=== PATIENT | female | born 1985 | race Caucasian/White ===

== ENCOUNTER → 2018-05-31 11:09 | Outpatient (CLI) | payer BC, OTHER, SELFPAY ==
--- NOTE | 2018-05-31 11:47 | US_ITS ---
US abdomen limited History:Right lower quadrant pain and tenderness Ordering Physician:Meagan Cruz MD Patient Age: 32 years Comparison:None Findings: Images are obtained of the right lower quadrant and demonstrates a moderate amount of artifact from gas within the overlying bowel. No free fluid apparent. No cyst or masses evident. The appendix was not demonstrated. IMPRESSION: The appendix was not demonstrated. Further evaluation may be obtained with CT with IV and oral contrast of clinically warranted. No obvious fluid collections or other significant anomalies evident
== END ==
PROVIDERS: PCP Family Medicine; Visit Provider Emergency Medicine
DX: R10.31 Right lower quadrant pain (principal)
CPT/HCPCS: 76705

== ENCOUNTER → 2019-05-05 14:59 | Outpatient (CLI) | payer BC, SELFPAY ==
[2019-05-05 15:26] LABS: Basophils % 0.4 % (0.1-2.0); Eosinophils # 0.1 K/mm3 (0.0-0.4); Eosinophils % 1.3 % (0.1-12.0); Hematocrit 43.5 % (37.0-47.0); Hemoglobin 14.8 g/dL (12.2-16.2); Lymphocytes # 2.6 K/mm3 (0.7-4.5); Lymphocytes % 27.5 % (10-50); Mean Corpuscular HGB Conc 34.1 g/dL (31.8-35.4); Mean Corpuscular Hemoglobin 30.7 pg (27.0-31.2); Mean Corpuscular Volume 89.9 fl (81-99); Mean Platelet Volume 7.7 fl (7.4-10.4); Monocytes # 0.2 K/mm3 (0.1-1.0); Monocytes % 2.5 % (1.7-9.3); Neutrophils # 6.6 K/mm3 (1.8-7.8); Neutrophils % 68.3 % (37.0-80.0); Platelet Count 263 K/mm3 (142-424); Red Blood Count 4.84 M/mm3 (4.20-5.40); Red Cell Distribution Width 12.7 % (11.5-17.5); White Blood Count 9.6 K/mm3 (4.8-10.8)
[2019-05-05 16:43] LABS: Alanine Aminotransferase 13 U/L (12-78); Albumin Level 4.3 gm/dL (3.4-5.0); Albumin/Globulin Ratio 1.3 (1.1-1.8); Alkaline Phosphatase 81 U/L (46-116); Anion Gap 18.1 mEq/L (5-15); Aspartate Amino Transferase 9 U/L (15-37); Bilirubin,Total 0.3 mg/dL (0.2-1.0); Blood Urea Nitrogen 10 mg/dL (7-18); Calcium 9.5 mg/dL (8.5-10.1); Carbon Dioxide 26 mmol/L (21.0-32.0); Chloride 104 mmol/L (98-107); Creatinine,Serum 0.77 mg/dL (0.55-1.02); Estimated Glomerular Filt Rate 86 ml/min (>60); GFR (African American) 104 ML/MIN (>60); Globulin 3.2 gm/dl (1.3-3.2); Glucose 87 mg/dL (74-106); Potassium 4.1 mmoL/L (3.5-5.1); Sodium 144 mmol/L (136-145); T4 (Thyroxine) 10.4 ug/dl (4.7-13.3); Thyroid Stimulating Hormone 0.43 uIU/ml (0.358-3.740); Total Protein,Serum 7.5 gm/dL (6.4-8.2)
[2019-05-07 06:59] LABS: Iron 98 ug/dL (27-159); UIBC 212 ug/dL (131-425)
[2019-05-07 10:59] LABS: Iron Saturation 32 % (15-55); Vitamin B12 1141 pg/mL (232-1245)
[2019-05-08 02:39] LABS: Folate, RBC 671 ng/mL (>498)
[2019-05-08 11:24] LABS: Vitamin D 25 Hydroxy 21.5 ng/mL (30.0-100.0)
[2019-05-08 12:29] LABS: Anti-Centromere B Antibodies <0.2 AI (0.0-0.9); Anti-Jo-1 <0.2 AI (0.0-0.9); Anti-Smith Antibody <0.2 AI (0.0-0.9); Antichromatin Antibodies <0.2 AI (0.0-0.9); Antiscleroderma-70 Antibodies <0.2 AI (0.0-0.9); RA Latex Turbid. <10.0 IU/mL (0.0-13.9); RNP Antibodies <0.2 AI (0.0-0.9); Sjogren's Anti-SS-A 0.2 AI (0.0-0.9); Sjogren's Anti-SS-B <0.2 AI (0.0-0.9)
[2019-05-09 16:43] LABS: Anti-DNA (DS) Ab Qn <1 IU/mL (0-9)
[2019-05-18 05:18] LABS: APTT 30.8 sec (.); Anti-Cardiolipin Antibody IgG <10 GPL (.); Anti-Cardiolipin Antibody IgM 11 MPL (.); Beta-2 Glycoprotein I Ab, IgA <10 SAU (.); Beta-2 Glycoprotein I Ab, IgG <10 SGU (.); Beta-2 Glycoprotein I Ab, IgM <10 SMU (.); Hexagonal Phase Phospholipid 0 sec (.); INR 1.2 ratio (.); Prothrombin Time 12.8 sec (.)
== END ==
PROVIDERS: Visit Provider Nurse Practitioner Family
DX: R27.9 Unspecified lack of coordination (principal); R53.83 Other fatigue; R53.1 Weakness; E55.9 Vitamin D deficiency, unspecified
CPT/HCPCS: 36415; 80053; 82607; 82652; 82747; 83540; 83550; 84436; 84443; 85014; 85025; 85597; 85598; 85610; 85613; 85670; 85730; 86146; 86147; 86225; 86235; 86431

== ENCOUNTER → 2019-05-30 12:48 | Outpatient (CLI) | payer BC, SELFPAY ==
--- NOTE | 2019-05-30 12:58 | MR_ITS ---
PROCEDURE: MR HEAD/BRAIN WO CON CLINICAL INDICATION: weakness Forgetfulness, altered mental status, constant headaches, weakness, stumbling, recent diagnosis of lupus COMPARISON: No exams were available for comparison TECHNIQUE: Routine multiplanar multi echo sequences are performed without gadolinium enhancement. FINDINGS: No midline shift, mass effect, intracranial hemorrhage, or hydrocephalus. No evidence of acute infarction The cerebellopontine angles, cerebellum, and brainstem are unremarkable. There is normal meredith-white matter differentiation with no abnormal white matter signal intensity evident. The pituitary, optic chiasm, corpus callosum, and craniocervical junction have an unremarkable appearance. There is mucosal thickening with mixed gas and fluid density in the sphenoid sinus as well as mucosal thickening the ethmoid sinuses and bilateral maxillary sinus with air-fluid level on the right. IMPRESSION: 1. No acute intracranial findings. 2. Sinusitis Dictated by: Joaquin Gomez MD 05/31/2019 12:05 Electronically signed by Joaquin Gomez MD in [place] 05/31/2019 12:05
== END ==
PROVIDERS: PCP Emergency Medicine; Visit Provider Nurse Practitioner Family
DX: R41.3 Other amnesia (principal); R41.840 Attention and concentration deficit; R53.83 Other fatigue
CPT/HCPCS: 70551

== ENCOUNTER → 2019-07-17 09:32 | Outpatient (CLI) | payer BC, SELFPAY ==
[2019-07-17 10:28] LABS: Basophils # 0.1 K/mm3 (0-0.2); Basophils % 0.7 % (0.1-2.0); Eosinophils # 0.2 K/mm3 (0.0-0.4); Eosinophils % 2.3 % (0.1-12.0); Hematocrit 45.9 % (37.0-47.0); Hemoglobin 15.1 g/dL (12.2-16.2); Lymphocytes # 2.3 K/mm3 (0.7-4.5); Lymphocytes % 29.6 % (10-50); Mean Corpuscular Hemoglobin 29.6 pg (27.0-31.2); Mean Corpuscular Volume 89.7 fl (81-99); Mean Platelet Volume 8.1 fl (7.4-10.4); Monocytes # 0.3 K/mm3 (0.1-1.0); Neutrophils % 63.3 % (37.0-80.0); Platelet Count 228 K/mm3 (142-424); Red Blood Count 5.11 M/mm3 (4.20-5.40); Red Cell Distribution Width 12.4 % (11.5-17.5); White Blood Count 7.9 K/mm3 (4.8-10.8)
[2019-07-17 10:54] LABS: Chloride 105 mmol/L (98-107); Sodium 141 mmol/L (136-145)
[2019-07-17 10:55] LABS: Potassium 3.9 mmoL/L (3.5-5.1)
[2019-07-17 10:57] LABS: Alanine Aminotransferase 12 U/L (12-78); Albumin Level 4.7 g/dl (3.5-5.0); Albumin/Globulin Ratio 1.7 (1.1-1.8); Alkaline Phosphatase 63 U/L (38-126); Anion Gap 13.9 mEq/L (5-15); Aspartate Amino Transferase 22 U/L (14-36); Bilirubin,Total 0.5 mg/dl (0.2-1.3); Blood Urea Nitrogen 5 mg/dl (7-17); Calcium 9.8 mg/dl (8.4-10.2); Carbon Dioxide 26 mmol/L (22.0-30.0); Estimated Glomerular Filt Rate 96 ml/min (>60); GFR (African American) 117 ML/MIN (>60); Globulin 2.7 g/dL (1.3-3.2); Glucose 82 mg/dl (74-100); Total Protein,Serum 7.4 g/dl (6.3-8.2)
[2019-07-17 11:05] LABS: HCG Qualitative, Serum Negative (Negative)
== END ==
PROVIDERS: Visit Provider Obstetrics & Gynecology
DX: Z01.818 Encounter for other preprocedural examination (principal); N93.8 Other specified abnormal uterine and vaginal bleeding; Z98.891 History of uterine scar from previous surgery
CPT/HCPCS: 36415; 80053; 84703; 85025

== ENCOUNTER 2019-07-19 07:38 | Inpatient (IN) ==
--- NOTE | 2019-07-19 08:59 | Progress Note ---
[facility] Anesthesia Checklist - Patient Identification Patient Identification: Arm Band, Verbal (Name & ) - Structural Data Admitted From: Home Planned Operative Procedure/s: PRATIBHA, possible BSO Consent for Planned Operative Procedure(s) Verified: Yes Verified Documents: Surgical Consent, History and Physical - NPO Status Verified Time NPO: 21:30 - Chart Verification Results Verified: CBC, BMP, HCG - Additional verifications Patient : No Anesthesia Reactions: No Hx Blood Transfusions: Yes Blood Transfusion Reaction: No - Airway Assessment C-Spine Mobility Assessed: Yes TMJ Mobility Assessed: Yes Dentition: Good Dentition - Neurological Assessment Level of Consciousness: Awake, Alert, Appropriate, Follows Commands Hx Seizures: No Numbness or tingling in extremities: No - Anesthesia Plan Anesthesia Risk discussed: Yes Anesthesia Plan: Verified ASA Class: II Anesthesia Type: General [facility] History I have reviewed the patient's past medical history: Yes Medical History: Reports:: Cancer (skin ca), Migraine Denies:: Diabetes Mellitus Type 1, Diabetes Mellitus Type 2, Internal Pacemaker, MRSA, Seizures *Have you ever received a pneumonia vaccine?: No *Have you received a flu vaccine this season?: No Other Medical History: Reports: Other. Denies: Blood Transfusion Reaction Comment:: Lupus Anesthesia experience/problems:: no prior complications Laterality Cases: Bilateral: Myringotomy (Ear Tubes) Other Surgeries: Yes: Colonoscopy, , Skin Cancer Excision, Tubal Ligation. No: Pacemaker Amputation: No Fractures: No - *Social History Educational Level: Attended College Smoking Status: Current every day smoker # Packs/Day (cigarettes): 1 #Yrs smoked (if former smoker): 18 Alcohol Intake: never Alcohol Intake Frequency:: holidays/special occasions only Substance Use Type: denies use *Occupational Status:: employed Housing: house Household Members: spouse, family *Travel in the last 8 weeks: None Family Hx:: Unable to obtain
--- NOTE | 2019-07-19 12:33 | Progress Note ---
[facility] Anesthesia Record Part I Intake, IV Amount: 2,300 Estimated blood loss (mL): 700 Urine output (mL): 200 Blood Pressure: 145/82 SaO2: 95 Pulse Rate: 105 Respiratory Rate: 16 Temperature: 98.1 F Patient is:: Drowsy, Stable Stable to PACU at:: 12:25
--- NOTE | 2019-07-19 12:51 | Operative Note ---
Date of procedure: 07/19/19 Pre-op Diagnosis:: 1. Severe dysmenorrhea 2. DUB 3. History of C Section 4. Tobacco abuse Post-op Diagnosis:: 1. Severe dysmenorrhea 2. DUB 3. History of C Section 4. Tobacco abuse 5. Severe pelvic adhesions Procedure performed:: Total abdominal hysterectomy, extensive lysis of adhesions Surgeon:: Fatou Cross MD Chief Cook(s):: Alise Braun FURNACE RELINER:: Jhony Márquez Anesthesia: GETA Estimated blood loss (mL): 700 Operative findings:: Normal uterus and bilateral ovaries. Extensive pelvic adhesions with bladder adhesions extending up the anterior uterus to the level of the round ligaments. Operative note:: The patient was taken to the operating room and general anesthesia was administered without difficulty. She was prepped and draped in the supine position. A Pfannenstiel skin incision was made approximately 2 cm above the pubic symphysis with a scalpel and carried down to the underlying layer of fascia. The fascia was incised in the midline and extended laterally sharply. The rectus muscles were sharply dissected off the fascia and in the midline. The peritoneum was turned and sharply, with good visualization of the underlying structures. The peritoneal incision was extended bluntly. A survey of the patient's pelvis and abdomen revealed a moderate amount of pelvic adhesions, with the vesicouterine peritoneum extending up the anterior uterus to the level of the round ligatments. The ovaries and fallopian tubes both elaine eared normal. At this time, the patient was placed in Trendelenburg and a [place] retractor was placed in the abdomen; the bowel was packed with moist laparotomy sponges. A double tooth tenaculum was placed on the uterine fundus above the level of the bladder adhesions and the uterus was elevated out of the pelvis. No fibroids or other visible uterine lesions were noted. The round ligaments were identified and transected and suture-ligated. A small defect was made in the anterior leaf of the broad ligament inferior to the round ligaments so that the bladder could be dissected off of the anterior uterus. This lysis of adhesions took approximately 20 minutes but was successfully completed without apparent bladder injury. Once the bladder was sufficiently dissected off the uterine fundus, it was dissected medially on both sides and the bladder flap was created digitally. The posterior leaf of the broad ligament was dissected until the ureters were able to be identified on either side and noted to be free of the forthcoming adnexal pedicles. Infundibulopelvic ligaments were doubly clamped transected and suture ligated on either side, with excellent hemostasis noted. The uterine arteries were skeletonized on either side, and were clamped, transected and suture ligated with excellent hemostasis. The bladder flap was further bluntly dissected off the lower uterine segment with excellent hemostasis and without injury to the bladder. The cardinal and uterosacral ligaments were clamped transected and suture ligated on both sides until the vaginal mucosa was entered. The vaginal incision was extended circumferentially with the Jorganson scissors; the uterus and cervix were removed abdominally and sent for pathology, along with the fallopian tubes. The vaginal cuff angles were closed 0 Vicryl [id number] sutures and were transfixed to the ipsilateral cardinal and uterosacral ligaments. The remainder of the vaginal cuff was closed with 0 Vicryl interrupted sutures. The pelvis was copiously irrigated with a solution of sterile water. The cuff was hemostatic. All pedicles were reexamined and remained hemostatic. All instruments were removed from the patient's abdomen. The peritoneum was closed with 2-0 Vicryl in a running fashion. The fascia was closed with #1 Vicryl in a running fashion. The skin was closed with christopher. The patient tolerated the procedure well; sponge/lap/needle and instrument counts were correct 2. She was taken to the recovery room awake in stable condition. Estimated blood loss: 700 cc. Condition: stable Disposition: PACU Specimens:: uterus and cervix Complications:: none
--- NOTE | 2019-07-19 14:09 | Pharmacy Consult Notes ---
[facility] Pharmacy VTE Monitoring - Patient Demographics Admission date: 07/19/19 Report Date: 07/19/19 Time: 14:09 Allergies/Adverse Reactions: Patient Allergies No Known Drug Allergies Allergy (Unknown, Verified 07/18/19 15:51) Height: 1.68 m Weight: 58.967 kg Patient Problems: Current Active Problems Tobacco abuse (Acute) Pelvic adhesions (Acute) History of section (Acute) Severe dysmenorrhea (Acute) DUB (dysfunctional uterine bleeding) (Acute) - VTE Risk Clinical Trial Participant: No - Prophylaxis VTE Prophylaxis Ordered?: Yes Types of VTE Prophylaxis: IPCS Knee High (POST OP) Location of Applied Device: Bilateral Lower Extremeties
--- NOTE | 2019-07-19 15:08 | Progress Note ---
[facility] Anesthesia Record Part II Discharge Time: 13:00 Destination: Obstetric Gynecology Dept PACU nurse assessment reviewed?: Yes Patient Condition:: Good Anesthesia Complications:: None Swallowing reflex intact?: Yes Cyanosis?: No Blood Pressure: 114/68 Pulse Rate: 95 Temperature: 97.9 F Mental Status: Alert & Oriented Pain level:: 6 Nausea and/or vomitting:: None Intake, IV Amount: 35
[2019-07-20 06:54] LABS: Hematocrit 32.5 % (37.0-47.0); Hemoglobin 10.3 g/dL (12.2-16.2)
[2019-07-20 07:01] LABS: Calcium 9.1 mg/dl (8.4-10.2)
--- NOTE | 2019-07-20 10:49 | Progress Note ---
Internal Medicine - PN: Subj *Date: 07/20/19 *Time: 10:45 Interval history: POD #1 CAROL MCKINNON Postop status uneventful during the day yesterday and overnight Early this am, after ambulating to void the patient noted that her abdominal dressing was saturated with sanginous drainage The bandage was changed by nursing staff, but has continued to ooze Hgb this am is 10.3, which is appropriate for intra-operative blood loss Tolerating po and voiding without difficulty; adequate urine output Pain control sufficient Exam Vital signs and Labs for Last 24 Hours: Temp Pulse Resp BP Pulse Ox 98.1 F 65 18 83/48 L 99 07/20/19 08:00 07/20/19 08:00 07/20/19 08:00 07/20/19 08:00 07/20/19 08:00 Laboratory Results - last 24 hr 07/19/19 09:40: Urine Color Yellow, Urine Appearance Clear, Urine pH 8.0, Ur Specific [place] 1.010, Urine Protein Negative, Urine Glucose (UA) Negative, Urine Ketones Negative, Urine Blood Trace-l, Urine Nitrate Negative, Urine Bilirubin Negative, Urine Urobilinogen 0.2, Ur Leukocyte Esterase Negative, Urine RBC 3-5, Urine WBC Occasional, Ur Squamous Epith Cells Occasional, Urine Bacteria None 07/20/19 06:25: Sodium 137, Potassium 4.0, Chloride 106, Carbon Dioxide 26, Anion Gap 9.0, BUN 4 L, Creatinine 0.60, Estimated Creat Clear 124, Estimated GFR 115, Est GFR ( Amer) 139, Glucose 139 H, Calcium 9.1 07/20/19 06:25: Hgb 10.3 L, Hct 32.5 L I & O for Last 24 hours: Intake & Output 07/17/19 07/18/19 07/19/19 07/20/19 11:59 11:59 11:59 11:59 Intake Total 2485 / 2485 Output Total 2275 / 2275 Balance 210 / 210 Weight 130 lb Narrative: CONSTITUTIONAL: no acute distress HEENT: mucous membranes moist PULMONARY: breathing unlabored without audible wheezes CV: no tachycardia or visible JVD; normal LE peripheral pulses ABD: soft, ND; appropriately tender but no rebound/guarding SKIN: incision well approximated with christopher. Sanginous oozing noted at one particular area between christopher [address] left lateral edge of incision Dressing changed and pressure dressing applied, with additional pressure from abdominal binder EXT: no edema LEs NEURO: alert/oriented, no altered mental status PSYCH: appropriate mood and demeanor without anxiety/depression Assessment and Plan (1) Severe dysmenorrhea Current visit: Yes Status: Acute Category: Medical Code(s): N94.6 - Dysmenorrhea, unspecified (2) DUB (dysfunctional uterine bleeding) Current visit: Yes Status: Acute Category: Medical Code(s): N93.8 - Other specified abnormal uterine and vaginal bleeding (3) Pelvic adhesions Current visit: Yes Status: Acute Category: Medical Code(s): N73.6 - Female pelvic peritoneal adhesions (postinfective) (4) S/P hysterectomy Current visit: Yes Status: Acute Category: Surgical Code(s): Z90.710 - Acquired absence of both cervix and uterus (5) Postoperative bleeding from incision Current visit: Yes Status: Acute Category: Medical - Assessment and plan all Dx Assessment and Plan for all problems:: Continue routine postop care Advance care as tolerated Plan to re-evaluate incisional bleeding couple hours after application of pressure dressing Repeat H/H If incisional bleeding persists, patient advised that may need to remove christopher for cauterization of bleeding
[2019-07-20 14:28] LABS: Hematocrit 29.6 % (37.0-47.0); Hemoglobin 9.6 g/dL (12.2-16.2)
[2019-07-21 07:12] LABS: Hematocrit 27.8 % (37.0-47.0)
[2019-07-21 07:19] LABS: Hemoglobin 8.8 g/dL (12.2-16.2)
--- NOTE | 2019-07-21 09:39 | Discharge Summary ---
General - General Admission date:: 07/19/19 Discharge date: 07/21/19 HPI HPI: 33 yo admitted for surgical management of severe dysmenorrhea and DUB with total abdominal hysterectomy Hospital Course Hospital Course: Postop day #1 the patient had superficial bleeding from the left lateral edge of abdominal incision This bleeding resolved with pressure dressing and no further bleeding was observed from the incision throughout POD #1, through the evening, or on POD #2 She is tolerating regular diet, ambulating and voiding without difficulty Hgb stable between POD #1 & POD #2 and she is asymptomatic with acute blood loss anemia She desires discharge home on POD #2 Objective Vital signs: Temp Pulse Resp BP Pulse Ox 98.1 F 70 18 82/44 L 96 07/21/19 04:00 07/21/19 04:00 07/21/19 04:00 07/21/19 04:00 07/21/19 04:00 Narrative: CONSTITUTIONAL: no acute distress HEENT: mucous membranes moist PULMONARY: breathing unlabored without audible wheezes CV: no tachycardia or visible JVD; normal LE peripheral pulses ABD: soft, ND; appropriately tender but no rebound/guarding SKIN: incision well approximated with christopher; no drainage, erythema or induration noted. Dressing dry. EXT: no edema LEs NEURO: alert/oriented, no altered mental status PSYCH: appropriate mood and demeanor without anxiety/depression Results Labs on day of discharge: Labs from last 24 hours 07/21/19 07/20/19 06:38 14:10 Hgb 8.8 L 9.6 L Hct 27.8 L 29.6 L DS: Diagnosis - Discharge Diagnosis (1) Severe dysmenorrhea Status: Acute (2) DUB (dysfunctional uterine bleeding) Status: Acute (3) Pelvic adhesions Status: Acute (4) S/P hysterectomy Status: Acute (5) Postoperative bleeding from incision Status: Acute (6) Acute blood loss anemia Status: Acute Discharge Plan - Patient Discharge Instructions ACTIVITY: Continue current activity DIET: regular diet - Follow up Plan Follow up with: Fatou Cross MD [Staff Physician] - (Wednesday07/24/19 9:15am) Disposition: Home, Self-Long-Term Medications: Home Medications Medication Instructions Recorded Confirmed Type No Known Home Medications 06/22/19 07/18/19 History Ketorolac Tromethamine [Toradol 10 mg PO Q6 PRN #30 tab 02/28/20 Rx 30mg/mL vial] Oxycodone HCl [OxyIR 5mg tablet] 5 - 10 mg PO Q4HP PRN #30 tab 07/21/19 Rx Prescriptions/Medication Reconciliation: New Ketorolac Tromethamine [Toradol 30mg/mL vial] 10 mg PO Q6 PRN #30 tab PRN Reason: Moderate Pain Acetaminophen [Acetaminophen 325mg tab] 650 mg PO Q4HP PRN tablet PRN Reason: Mild Pain Oxycodone HCl [OxyIR 5mg tablet] 5 - 10 mg PO Q4HP PRN #30 tab PRN Reason: Moderate To Severe Pain No Action No Known Home Medications - Problem Reconciliation Problems Reviewed?: Yes
== END 2019-07-21 11:30 | disposition home or self-care (01) | DRG 743 ==
LOC: OR 07:38 → OB 13:00
PROVIDERS: ADMIT Obstetrics & Gynecology; ATTEND Obstetrics & Gynecology
CPT/HCPCS: 36415; 80048; 81001; 85014; 85018; 96374; J2405; J2710

== ENCOUNTER 2019-11-22 14:36 | Emergency (ER) | payer BC, SELFPAY ==
[2019-11-22 15:30] VITALS: BP 106/79; PULSE 84; RESP 20; TEMP 36.8; O2SAT 100; BMI 19.5
--- NOTE | 2019-11-22 15:38 | HMH.EDUTC ---
[facility] [place] Clinical Impression: Sinusitis Qualifiers: Sinusitis location: unspecified location Chronicity: unspecified Qualified Code(s): J32.9 - Chronic sinusitis, unspecified Disposition: Home, Self-Care Condition on Discharge: Good Instructions: Sinusitis, Sinus Headache, DI for Sinusitis, DI for Flank Pain Additional Instructions: Take medication as prescribed *FOllow up with Family doctor if no improvement or any worsening of symptoms Straight to ER if any worsening of flank pain and immediately if any life threatening symptoms Make sure that you are drinking plenty of water Return if needed Follow up with Family doctor in the next 48-72 hours Prescriptions: Amoxicillin/Potassium Clav [Augmentin 875-125 Tablet] 1 tab PO Q12H 7 Days #14 tab Transmission Status: Received by [facility] #[id number] Referrals: Damien Dwyer APRN [Primary Care Provider] - As needed Time of Disposition: 15:57 Medical Decision Making - Sim Inquiry Pt receiving controlled substance: No Sim was queried for this patient: No Vital Signs: 11/22/19 15:30 11/22/19 16:13 Temperature 98.2 F 98.2 F Temperature Source Oral Pulse Rate 84 Pulse Rate [Right Brachial] 84 Respiratory Rate 20 20 Blood Pressure 106/79 L Blood Pressure [Right Arm] 106/79 L Blood Pressure Mean [Right Arm] 88 Blood Pressure Source [Right Arm] Automatic Cuff Blood Pressure Position [Right Arm] Sitting 02 Sat by Pulse Oximetry 100 Oxygen Delivery Method Room Air - Lab Data Lab results reviewed: Yes: I reviewed the patient's lab results. Lab Results 11/22/19 15:11: Urine Color Yellow, Urine Appearance Clear, Urine pH 6.0, Ur Specific [place] 1.010, Urine Protein Negative, Urine Glucose (UA) Negative, Urine Ketones Negative, Urine Blood 2+, Urine Nitrate Negative, Urine Bilirubin Negative, Urine Urobilinogen 0.2, Ur Leukocyte Esterase Negative Orders (Tests/Meds): ED MEDICATIONS Discontinued Medications Generic Name Dose Route Start Last Admin Trade Name Freq PRN Reason Stop Dose Admin Ketorolac Tromethamine 30 mg 11/22/19 15:48 11/22/19 16:01 Toradol 60mg/2ml Vial IM 11/22/19 15:49 30 mg ONCE ONE Administration Medical Decision Narrative: Discussed with patient that we could send her to the ED for further evaluation and CT if needed to rule out kidney stones and patient declined transfer State that she will take the medication and follow up with PCP if no improvement or any worsening of symptoms [facility] [place] - General Stated complaint: Possible UTI Time Seen by Provider: 11/22/19 15:38 Mode of Arrival: Ambulatory Source of Information: Patient Limitations: No Limitations Description of Symptoms (Recalled from Triage Doc. by RN): PATIENT C/O SINUS PRESSURE AND DRAINAGE AND LOWER BACK PAIN SINCE YESTERDAY HEENT Symptoms (Recalled from RN notes): Yes Resp Symptoms (Recalled from RN notes): No Skin Symptoms (Recalled from RN notes): No MS Symptoms (Recalled from RN notes): Yes Functional Status (Recalled from RN notes): WNL - History of Present Illness Provider Complaint: Patient states that she feels like she has a sinus infection State that she has been having sinus pain and pressure and pressure like feeing in her ears State that she has been working outside and started having some lower back pain last night like she has had before with UTI states feels like it did then Denies radiation of pain but states that pain is a constant achy like feeling - Related Data Home Medications Medication Instructions Recorded Confirmed Sertraline HCl [Zoloft] 50 mg PO DAILY 11/22/19 11/22/19 Previous Rx's Medication Instructions Recorded diazepam 10 mg tablet 10 mg PO QHS PRN #30 tab 10/19/19 Amoxicillin/Potassium Clav 1 tab PO Q12H 7 Days #14 tab 11/22/19 [Augmentin 875-125 Tablet] Allergies Allergy/AdvReac Type Severity Reaction Status Date / Time No Known Drug Allergies Allergy Unknown
[2019-11-22 15:54] LABS: Color,Urine Yellow (Yellow)
[2019-11-22 15:55] LABS: Apearance,Urine Clear (Clear); Bilirubin,Urine Negative (Negative); Blood, Urine 2+ (Negative); Glucose,Urine (UA) Negative (Negative); Ketones,Urine Negative (Negative); Protein,Urine Negative (Negative); UTC Leukocyte Esterase,Urine Negative (Negative); UTC Nitrate,Urine Negative (Negative); Urobilinogen,Urine 0.2 EU/dl (0.2)
[2019-11-22 16:13] VITALS: BP 106/79; PULSE 84; RESP 20; TEMP 36.8; O2SAT 100
== END 2019-11-22 16:17 | disposition home or self-care (01) ==
PROVIDERS: Emergency Provider Nurse Practitioner; PCP Nurse Practitioner Family
DX: J32.9 Chronic sinusitis, unspecified (principal); G43.709 Chronic migraine without aura, not intractable, without status migrainosus; Z90.79 Acquired absence of other genital organ(s); F17.210 Nicotine dependence, cigarettes, uncomplicated
CPT/HCPCS: 81003; 96372; 99201

== ENCOUNTER 2020-03-24 09:59 | Emergency (ER) | payer BC, SELFPAY ==
[2020-03-24 10:33] VITALS: BP 115/67; PULSE 116; RESP 20; TEMP 36.6; O2SAT 98; BMI 22.2
--- NOTE | 2020-03-24 11:03 | HMH.EDUTC ---
[facility] [place] Clinical Impression: Strep throat Disposition: Home, Self-Care Condition on Discharge: Good Instructions: Strep Throat, DI for Strep Throat Additional Instructions: *Monitor Temp, Over the counter Motrin or Tylenol as directed/as needed Tylenol every 4 hours and Motrin every 6 hours (as long as your family doctor has told you that you can take it) for fever or pain. and straight to ER if unable to lower temp less than 101.0 after medication given *Warm salt water gargles may help to soothe the throat *Throat Lozenges *Warm fluids like tea with honey may help to soothe the throat *Sleep elevated *Humidifier/Vaporizer *If you did not take Penicillin shot or was unable to, start taking antibiotic immediately and make sure that you take it for the FULL length of time although you should start to feel better in 24-48 hours *change toothbrush and toothpaste 24-48 hours after starting to take antibiotics so you do not reinfect yourself Monitor Temp. Tylenol and/or Ibuprofen as needed. ER if fever is no less than 101 despite alternating Tylenol and Ibuprofen * Encourage fluids, water, Gatorade, powerade, pedialyte if infant/toddler/or child *Cold fluids, popsicles and ice cream may feel good on his throat Follow up IMMEDIATELY for new or worsening symptoms or no Noticeable improvement over the next 48-72 hours. 911 for difficulty breathing or swallowing Prescriptions: Penicillin V Potassium 500 mg PO BID 10 Days #20 tab Transmission Status: Received by [facility] #[id number] Referrals: Damien Dwyer APRN [Primary Care Provider] - As needed Time of Disposition: 11:09 Medical Decision Making - Sim Inquiry Pt receiving controlled substance: No Sim was queried for this patient: No Vital Signs: 03/24/20 10:33 Temperature 97.8 F Temperature Source Oral Pulse Rate [Radial] 116 H Respiratory Rate 20 Blood Pressure [Right Arm] 115/67 Blood Pressure Mean [Right Arm] 83 Blood Pressure Source [Right Arm] Automatic Cuff Blood Pressure Position [Right Arm] Sitting 02 Sat by Pulse Oximetry 98 Oxygen Delivery Method Room Air - Lab Data Lab results reviewed: Yes: I reviewed the patient's lab results. Orders (Tests/Meds): ED MEDICATIONS Discontinued Medications Generic Name Dose Route Start Last Admin Trade Name Freq PRN Reason Stop Dose Admin Methylprednisolone Sodium Succinate 125 mg 03/24/20 11:03 03/24/20 11:16 Methylprednisolone Sod Succ 125mg Vial IM 03/24/20 11:04 125 mg ONCE ONE Administration [facility] [place] HPI - General Stated complaint: strepp throat Time Seen by Provider: 03/24/20 11:03 Mode of Arrival: Ambulatory Source of Information: Patient Limitations: No Limitations Description of Symptoms (Recalled from Triage Doc. by RN): sore throat x 2 days HEENT Symptoms (Recalled from RN notes): Yes Resp Symptoms (Recalled from RN notes): No Skin Symptoms (Recalled from RN notes): No MS Symptoms (Recalled from RN notes): No Functional Status (Recalled from RN notes): wnl - History of Present Illness Provider Complaint: Patient states that she thinks she may have strep throat States that for last couple of days she has been having swelling in her throat and pain when she swallows States today it was worse and she came in to get checked - Related Data Previous Rx's Medication Instructions Recorded diazepam 10 mg tablet 10 mg PO QHS PRN #30 tab 03/04/20 mirtazapine 30 mg tablet 30 mg PO QHS #30 tab 03/04/20 Penicillin V Potassium 500 mg PO BID 10 Days #20 tab 03/24/20 Allergies Allergy/AdvReac Type Severity Reaction Status Date / Time No Known Drug Allergies Allergy Unknown Verified 10/19/19 13:06 - Worker's Comp Is this a Worker's Comp case?: No [facility] History - Hepatitis A Screen Drug use history?: No High risk sexual behaviors?: No History of sexually transmitted infection?: No Currently employed?: No Childcare worker?: No Do you have indoor
[2020-03-24 11:38] VITALS: BP 115/67; PULSE 116; RESP 20; TEMP 36.6; O2SAT 98
[2020-03-24 16:38] LABS: UTC Influenza A Antigen Negative (Negative); UTC Influenza B Antigen Negative (Negative)
[2020-03-24 16:40] LABS: UTC Strep Screen (Rapid) Positive (Negative)
== END 2020-03-24 11:38 | disposition home or self-care (01) ==
PROVIDERS: Emergency Provider Nurse Practitioner; PCP Nurse Practitioner Family
DX: J02.0 Streptococcal pharyngitis (principal); G43.709 Chronic migraine without aura, not intractable, without status migrainosus; F17.210 Nicotine dependence, cigarettes, uncomplicated
CPT/HCPCS: 87804; 87880; 96372; 99202

== ENCOUNTER → 2020-11-22 11:14 | Outpatient (CLI) | payer MEDICAID, SELFPAY ==
[2020-11-22 11:15] LABS: Adenovirus F 40/41, stool Not Detected (NotDetected); Astrovirus Not Detected (NotDetected); Campylobacter Not Detected (NotDetected); Cryptosporidium Not Detected (NotDetected); Cyclospora Cayetanesis Not Detected (NotDetected); Entamoeba histolytica Not Detected (NotDetected); Enteroaggregative E coli Not Detected (NotDetected); Enteropathogenic E coli Not Detected (NotDetected); Enterotoxigenic E coli Not Detected (NotDetected); Giardia lamblia Not Detected (NotDetected); Norovirus Not Detected (NotDetected); Plesimonas Shigalloides, PCR Not Detected (NotDetected); Rotavirus A Not Detected (NotDetected); Salmonella, PCR Not Detected (NotDetected); Sapovirus Not Detected (NotDetected); Shiga-like toxin E coli Not Detected (NotDetected); Shigella Enterovasive E coli Not Detected (NotDetected); Vibrio Cholerae Not Detected (NotDetected); Vibrio, PCR Not Detected (NotDetected); Yersinia Entercolitica, PCR Not Detected (NotDetected)
[2020-11-23 07:36] LABS: Clostridium Difficile A/B, PCR Detected (NotDetected)
[2020-11-23 22:07] LABS: H. pylori Breath Test Negative (Negative)
== END ==
PROVIDERS: Visit Provider Nurse Practitioner Family
DX: R19.7 Diarrhea, unspecified (principal); A04.72 Enterocolitis due to Clostridium difficile, not specified as recurrent
CPT/HCPCS: 83013; 87507

== ENCOUNTER → 2020-12-13 13:42 | Outpatient (CLI) | payer MEDICAID, SELFPAY ==
[2020-12-13 13:44] LABS: Adenovirus F 40/41, stool Not Detected (NotDetected); Astrovirus Not Detected (NotDetected); Campylobacter Not Detected (NotDetected); Cryptosporidium Not Detected (NotDetected); Cyclospora Cayetanesis Not Detected (NotDetected); Entamoeba histolytica Not Detected (NotDetected); Enteroaggregative E coli Not Detected (NotDetected); Enteropathogenic E coli Not Detected (NotDetected); Enterotoxigenic E coli Not Detected (NotDetected); Giardia lamblia Not Detected (NotDetected); Norovirus Not Detected (NotDetected); Plesimonas Shigalloides, PCR Not Detected (NotDetected); Rotavirus A Not Detected (NotDetected); Salmonella, PCR Not Detected (NotDetected); Sapovirus Not Detected (NotDetected); Shiga-like toxin E coli Not Detected (NotDetected); Shigella Enterovasive E coli Not Detected (NotDetected); Vibrio Cholerae Not Detected (NotDetected); Vibrio, PCR Not Detected (NotDetected); Yersinia Entercolitica, PCR Not Detected (NotDetected)
[2020-12-13 16:04] LABS: Clostridium Difficile A/B, PCR Detected (NotDetected)
== END ==
PROVIDERS: Visit Provider Nurse Practitioner Family
DX: A04.72 Enterocolitis due to Clostridium difficile, not specified as recurrent (principal)
CPT/HCPCS: 87507

== ENCOUNTER → 2021-01-01 08:15 | Outpatient (CLI) | payer MEDICAID, SELFPAY ==
--- NOTE | 2021-01-01 08:15 | CT_ITS ---
PROCEDURE: CT SINUS WO CON CLINICAL HISTORY: sinusit Sinusitis COMPARISON: No exams were available for comparison TECHNIQUE: Axial images obtained with sagittal and coronal reformats. All CT scans at the facility use one or more dose reduction, viz: automated exposure control, ma/kV adjustment per patient size (including targeted exams where dose is matched to indication, i.e. head), or iterative reconstruction technique. FINDINGS: Mild mucosal thickening of the ethmoids and sphenoid region was a small amount of mucus in the right aspect of the sphenoid sinus. There is a small air-fluid level in the right maxillary sinus with mild mucosal thickening on the right. There is mild leftward nasal septal deviation. The left ostiomeatal unit is patent. There is narrowing of the right OMC. The orbits are unremarkable. No mastoid effusion. Small nodular density is present in the left parotid gland superiorly and anteriorly measuring approximately 7 mm suggestive of a small lymph node. IMPRESSION: Paranasal sinus disease with mucosal thickening and a an air-fluid level in the right maxillary sinus. Dictated by: Joaquin Gomez MD 01/02/2021 10:12 Joaquin Gomez MD in [place] 01/02/2021 10:12
== END ==
PROVIDERS: PCP Nurse Practitioner Family; Visit Provider Otolaryngology
DX: J01.01 Acute recurrent maxillary sinusitis (principal)
CPT/HCPCS: 70486

== ENCOUNTER → 2021-01-10 17:29 | Outpatient (CLI) | payer MEDICAID, SELFPAY ==
[2021-01-10 17:32] LABS: Adenovirus F 40/41, stool Not Detected (NotDetected); Astrovirus Not Detected (NotDetected); Campylobacter Not Detected (NotDetected); Cryptosporidium Not Detected (NotDetected); Cyclospora Cayetanesis Not Detected (NotDetected); Entamoeba histolytica Not Detected (NotDetected); Enteroaggregative E coli Not Detected (NotDetected); Enteropathogenic E coli Not Detected (NotDetected); Enterotoxigenic E coli Not Detected (NotDetected); Giardia lamblia Not Detected (NotDetected); Norovirus Not Detected (NotDetected); Plesimonas Shigalloides, PCR Not Detected (NotDetected); Rotavirus A Not Detected (NotDetected); Salmonella, PCR Not Detected (NotDetected); Sapovirus Not Detected (NotDetected); Shiga-like toxin E coli Not Detected (NotDetected); Shigella Enterovasive E coli Not Detected (NotDetected); Vibrio Cholerae Not Detected (NotDetected); Vibrio, PCR Not Detected (NotDetected); Yersinia Entercolitica, PCR Not Detected (NotDetected)
[2021-01-10 22:41] LABS: Clostridium Difficile A/B, PCR Detected (NotDetected)
== END ==
PROVIDERS: Visit Provider Nurse Practitioner Family
DX: R19.7 Diarrhea, unspecified (principal); A04.72 Enterocolitis due to Clostridium difficile, not specified as recurrent
CPT/HCPCS: 87507

== ENCOUNTER → 2021-02-19 13:11 | Outpatient (CLI) | payer MEDICAID, SELFPAY ==
[2021-02-19 13:12] LABS: Adenovirus F 40/41, stool Not Detected (NotDetected); Astrovirus Not Detected (NotDetected); Campylobacter Not Detected (NotDetected); Clostridium Difficile A/B, PCR Not Detected (NotDetected); Cryptosporidium Not Detected (NotDetected); Cyclospora Cayetanesis Not Detected (NotDetected); Entamoeba histolytica Not Detected (NotDetected); Enteroaggregative E coli Not Detected (NotDetected); Enterotoxigenic E coli Not Detected (NotDetected); Giardia lamblia Not Detected (NotDetected); Norovirus Not Detected (NotDetected); Plesimonas Shigalloides, PCR Not Detected (NotDetected); Rotavirus A Not Detected (NotDetected); Salmonella, PCR Not Detected (NotDetected); Sapovirus Not Detected (NotDetected); Shiga-like toxin E coli Not Detected (NotDetected); Shigella Enterovasive E coli Not Detected (NotDetected); Vibrio Cholerae Not Detected (NotDetected); Vibrio, PCR Not Detected (NotDetected); Yersinia Entercolitica, PCR Not Detected (NotDetected)
[2021-02-19 16:15] LABS: Enteropathogenic E coli Detected (NotDetected)
== END ==
PROVIDERS: Visit Provider Nurse Practitioner Family
DX: R19.7 Diarrhea, unspecified (principal); A04.0 Enteropathogenic Escherichia coli infection
CPT/HCPCS: 87507

== ENCOUNTER → 2021-03-28 13:26 | Outpatient (CLI) | payer MEDICAID, SELFPAY ==
[2021-03-28 13:28] LABS: Adenovirus F 40/41, stool Not Detected (NotDetected); Astrovirus Not Detected (NotDetected); Campylobacter Not Detected (NotDetected); Cryptosporidium Not Detected (NotDetected); Cyclospora Cayetanesis Not Detected (NotDetected); Entamoeba histolytica Not Detected (NotDetected); Enteroaggregative E coli Not Detected (NotDetected); Enteropathogenic E coli Not Detected (NotDetected); Enterotoxigenic E coli Not Detected (NotDetected); Giardia lamblia Not Detected (NotDetected); Norovirus Not Detected (NotDetected); Plesimonas Shigalloides, PCR Not Detected (NotDetected); Rotavirus A Not Detected (NotDetected); Salmonella, PCR Not Detected (NotDetected); Sapovirus Not Detected (NotDetected); Shiga-like toxin E coli Not Detected (NotDetected); Shigella Enterovasive E coli Not Detected (NotDetected); Vibrio Cholerae Not Detected (NotDetected); Vibrio, PCR Not Detected (NotDetected); Yersinia Entercolitica, PCR Not Detected (NotDetected)
[2021-03-28 18:13] LABS: Clostridium Difficile A/B, PCR Detected (NotDetected)
== END ==
PROVIDERS: Visit Provider Nurse Practitioner Family
DX: A04.72 Enterocolitis due to Clostridium difficile, not specified as recurrent (principal)
CPT/HCPCS: 87507

== ENCOUNTER → 2021-05-05 13:25 | Outpatient (CLI) | payer MEDICAID, SELFPAY ==
[2021-05-05 14:52] LABS: Adenovirus F 40/41, stool Not Detected (NotDetected); Astrovirus Not Detected (NotDetected); Campylobacter Not Detected (NotDetected); Cryptosporidium Not Detected (NotDetected); Cyclospora Cayetanesis Not Detected (NotDetected); Entamoeba histolytica Not Detected (NotDetected); Enteroaggregative E coli Not Detected (NotDetected); Enteropathogenic E coli Not Detected (NotDetected); Enterotoxigenic E coli Not Detected (NotDetected); Giardia lamblia Not Detected (NotDetected); Norovirus Not Detected (NotDetected); Plesimonas Shigalloides, PCR Not Detected (NotDetected); Rotavirus A Not Detected (NotDetected); Salmonella, PCR Not Detected (NotDetected); Sapovirus Not Detected (NotDetected); Shiga-like toxin E coli Not Detected (NotDetected); Shigella Enterovasive E coli Not Detected (NotDetected); Vibrio Cholerae Not Detected (NotDetected); Vibrio, PCR Not Detected (NotDetected); Yersinia Entercolitica, PCR Not Detected (NotDetected)
[2021-05-05 22:30] LABS: Clostridium Difficile A/B, PCR Detected (NotDetected)
[2021-05-09 15:14] LABS: Calprotectin, Fecal 135 ug/g (0-120)
== END ==
PROVIDERS: Visit Provider Internal Medicine Gastroenterology
DX: R19.7 Diarrhea, unspecified (principal); A04.72 Enterocolitis due to Clostridium difficile, not specified as recurrent
CPT/HCPCS: 83993; 87045; 87177; 87507

== ENCOUNTER 2021-06-06 18:59 | Emergency (ER) | payer MEDICAID, SELFPAY ==
--- NOTE | 2021-06-06 20:10 | HMH.EDUTC ---
[facility] [place]ression: [place]-19 Disposition: Home, Self-Care Condition on Discharge: Good Instructions: DI for Viral Syndrome, DI for COVID-19 (Suspected or Confirmed ), Preventing the Spread of Coronavirus Discharge Instructions Additional Instructions: Drink plenty of fluids. Take tylenol for pain or fever. Take the medications as directed. Follow up with your regular doctor. GO TO THE ER FOR ANY WORSENING SYMPTOMS Quarantine until you know the results of your covid-19 test. If it is positive, the health department should call you and give you further instructions about your length of Quarantine and other things. Notify your school or workplace of your results and follow their instructions regarding return to work/school. Prescriptions: Ondansetron [Zofran 4mg ODT] 4 mg PO Q8HP PRN #20 tab PRN Reason: Nausea Transmission Status: Received by [facility] #[id number] Benzonatate [Benzonatate 100mg cap] 100 mg PO TIDP PRN #30 cap PRN Reason: Cough Transmission Status: Received by [facility] #[id number] Referrals: Jonathan Quispe MD [Primary Care Provider] - Forms: Work/School Release Time of Disposition: 20:37 Medical Decision Making - Medical Records Medical records reviewed: No: I reviewed the patient's medical records. - Sim Inquiry Pt receiving controlled substance: No Vital Signs: 06/06/21 20:27 06/06/21 20:46 Temperature 98.9 F 98.9 F Temperature Source Oral Pulse Rate 112 H Pulse Rate [Left] 112 H Respiratory Rate 16 16 Blood Pressure 138/95 H Blood Pressure [Right Arm] 138/95 H Blood Pressure Mean [Right Arm] 109 02 Sat by Pulse Oximetry 99 - Lab Data Lab results reviewed: Yes: I reviewed the patient's lab results. [facility] [place] - General Stated complaint: covid test w sore throat,Body aches Time Seen by Provider: 06/06/21 20:10 - History of Present Illness Provider Complaint: She states that for the past 3 days she has had body aches, head ache, n/v, sore scratchy throat and a dry cough. She was exposed to covid-19 in her home. She denies feeling like she has strep throat and she refuses a strep swab. - Related Data Previous Rx's Medication Instructions Recorded famotidine 20 mg tablet 20 mg PO DAILY #30 tab 11/21/20 fluticasone propionate 50 1 spray INTRANASAL DAILY #16 g 12/11/20 mcg/actuation nasal spray,suspension fexofenadine 60 mg-pseudoephedrine 1 tab PO Q12H PRN 30 Days #30 tab 01/06/21 ER 120 mg tablet,ext.release,12 hr fidaxomicin 200 mg tablet 200 mg PO BID 10 Days #20 tab 01/21/21 diazepam 10 mg tablet 10 mg PO BID PRN #60 tab 04/29/21 mirtazapine 30 mg tablet 30 mg PO QHS #30 tab 04/29/21 Benzonatate [Benzonatate 100mg 100 mg PO TIDP PRN #30 cap 06/06/21 cap] Ondansetron [Zofran 4mg ODT] 4 mg PO Q8HP PRN #20 tab 06/06/21 Allergies Allergy/AdvReac Type Severity Reaction Status Date / Time No Known Drug Allergies Allergy Unknown Verified 04/24/21 10:47 [facility] History - Hepatitis A Screen Attestation statement:: This patient has been screened for Hepatitis A risk factors. I have reviewed the patient's past medical history: Yes Medical History: Reports:: Cancer, Migraine Denies:: Diabetes Mellitus Type 1, Diabetes Mellitus Type 2, Internal Pacemaker, MRSA, Seizures Other Medical History: Reports: Other. Denies: Blood Transfusion Reaction Comment: Lupus Laterality Cases: Bilateral: Myringotomy (Ear Tubes) Other Surgeries: Yes: No Previous Surgery, Colonoscopy, , Hysterectomy-Partial, Skin Cancer Excision, Tubal Ligation. No: Pacemaker Amputation: No Fractures: No Comment: Ear tubes as a child. skin cancers removed yearly. Colonoscopy. C/S with BTL-2007 - Social History Smoking Status: Current every day smoker Tobacco Type: cigarettes # Packs/Day (cigarettes): 1 #Yrs smoked (if former smoker): 18 Alcohol Intake: current Alcohol Intake Frequency:: holidays/s
[2021-06-06 20:27] VITALS: BP 138/95; PULSE 112; RESP 16; TEMP 37.2; O2SAT 99; BMI 26.6
[2021-06-06 20:46] VITALS: BP 138/95; PULSE 112; RESP 16; TEMP 37.2
== END 2021-06-06 20:48 | disposition home or self-care (01) ==
PROVIDERS: Emergency Provider Nurse Practitioner Family; PCP Emergency Medicine
DX: U07.1 COVID-19 (principal); F17.210 Nicotine dependence, cigarettes, uncomplicated
CPT/HCPCS: 99202; C9803; G0463; U0003; U0005

== ENCOUNTER 2021-09-21 19:10 | Emergency (ER) | payer MEDICAID, SELFPAY ==
--- NOTE | 2021-09-21 19:14 | XR_ITS ---
PROCEDURE INFORMATION: Exam: XR Pelvis Exam date and time: 09/21/2021 7:18 PM Age: 35 years old Clinical indication: Pelvic pain; Additional info: Fall TECHNIQUE: Imaging protocol: XR pelvis. Views: 3 or more views. COMPARISON: No relevant prior studies available. FINDINGS: Bones, joint spaces, and soft tissues are normal. IMPRESSION: No acute skeletal pathology.
--- NOTE | 2021-09-21 19:14 | XR_ITS ---
PROCEDURE INFORMATION: Exam: XR Sacrum and Coccyx, 2 or More Views Exam date and time: 09/21/2021 7:19 PM Age: 35 years old Clinical indication: Pain in coccyx area; Additional info: Fall TECHNIQUE: Imaging protocol: XR of the sacrum and coccyx, 2 or more views. COMPARISON: CR XR PELVIS MIN 3V 09/21/2021 7:18 PM FINDINGS: Bones, joint spaces, and soft tissues are normal. IMPRESSION: No acute skeletal pathology.
[2021-09-21 19:15] VITALS: BP 121/76; PULSE 114; RESP 20; TEMP 36.8; O2SAT 95; BMI 28.2
[2021-09-21 19:34] VITALS: BP 121/76; PULSE 114; RESP 20; TEMP 36.8; O2SAT 95
--- NOTE | 2021-09-21 19:50 | HMH.EDUTC ---
[facility] [place] Disposition Clinical Impression: Tail bone pain Disposition: Home, Self-Care Condition on Discharge: Good Instructions: Contusion Additional Instructions: Weightbearing as tolerated rest Ice with cold pack for 20 minutes remove may repeat for comfort every hour Ibuprofen every 6 hours as needed for pain or inflammation. If needs something more you can take Tylenol every 4 hours as needed as long as her primary care has told he was okayed for you to take both. If improving any do not need to follow-up you can bring begin exercising 2-3 weeks after injury. Follow-up immediately if new or worsening symptoms or no noticeable improvement over the next 3-5 days. call pcp if no improvement for more work up Prescriptions: predniSONE [Prednisone 20mg Tab] 20 mg PO BID #10 tab Transmission Status: Pending to [facility] #[id number] Referrals: Jonathan Quispe MD [Primary Care Provider] - Time of Disposition: 20:08 Medical Decision Making - Sim Inquiry Pt receiving controlled substance: No Vital Signs: 09/21/21 19:15 09/21/21 19:34 Temperature 98.2 F 98.2 F Temperature Source Oral Pulse Rate 114 H Pulse Rate [Right Brachial] 114 H Respiratory Rate 20 20 Blood Pressure 121/76 Blood Pressure [Right Arm] 121/76 Blood Pressure Mean [Right Arm] 91 Blood Pressure Source [Right Arm] Automatic Cuff Blood Pressure Position [Right Arm] Sitting 02 Sat by Pulse Oximetry 95 Oxygen Delivery Method Room Air [facility] [place] HPI - General Chief complaint: Urgent Treatment Center Stated complaint: AO 09/20/21 @ 1910 Tailbone pain Time Seen by Provider: 09/21/21 19:50 Mode of Arrival: Ambulatory Source of Information: Patient Limitations: No Limitations Description of Symptoms (Recalled from Triage Doc. by RN): PATIENT C/O PAIN TO TAIL BONE AFTER FALLING YESTERDAY HEENT Symptoms (Recalled from RN notes): No Resp Symptoms (Recalled from RN notes): No Skin Symptoms (Recalled from RN notes): No MS Symptoms (Recalled from RN notes): Yes Functional Status (Recalled from RN notes): WNL - History of Present Illness Provider Complaint: 35 yr old female presents for tail bone pain. pt states she slipped on water and fell and hit flat on bottom. pt states pain not as bad standing as sitting - Related Data Previous Rx's Medication Instructions Recorded famotidine 20 mg tablet 20 mg PO DAILY #30 tab 11/21/20 fluticasone propionate 50 1 spray INTRANASAL DAILY #16 g 12/11/20 mcg/actuation nasal spray,suspension fexofenadine 60 mg-pseudoephedrine 1 tab PO Q12H PRN 30 Days #30 tab 01/06/21 ER 120 mg tablet,ext.release,12 hr fidaxomicin 200 mg tablet 200 mg PO BID 10 Days #20 tab 01/21/21 Benzonatate [Benzonatate 100mg 100 mg PO TIDP PRN #30 cap 06/06/21 cap] Ondansetron [Zofran 4mg ODT] 4 mg PO Q8HP PRN #20 tab 06/06/21 diazepam 10 mg tablet 10 mg PO BID PRN #60 tab 07/24/21 mirtazapine 30 mg tablet 30 mg PO QHS #30 tab 07/24/21 predniSONE [Prednisone 20mg 20 mg PO BID #10 tab 09/21/21 Tab] Allergies Allergy/AdvReac Type Severity Reaction Status Date / Time No Known Drug Allergies Allergy Unknown Verified 09/02/21 10:43 - Worker's Comp Is this a Worker's Comp case?: No [facility] History - Hepatitis A Screen Attestation statement:: This patient has been screened for Hepatitis A risk factors. I have reviewed the patient's past medical history: Yes Medical History: Reports:: Cancer, Migraine Denies:: Diabetes Mellitus Type 1, Diabetes Mellitus Type 2, Internal Pacemaker, MRSA, Seizures Other Medical History: Reports: Other. Denies: Blood Transfusion Reaction Comment: Lupus Laterality Cases: Bilateral: Myringotomy (Ear Tubes) Other Surgeries: Yes: No Previous Surgery, Colonoscopy, , Hysterectomy-Partial, Skin Cancer Excision, Tubal Ligation. No: Pacemaker Amputation: No Fractures: No Comment: Ear tubes as a child. skin cancers removed yearly. Colonoscopy. C/S with BTL-2
== END 2021-09-21 20:10 | disposition home or self-care (01) ==
PROVIDERS: Emergency Provider Nurse Practitioner Family; PCP Emergency Medicine
DX: M53.3 Sacrococcygeal disorders, not elsewhere classified (principal); F17.210 Nicotine dependence, cigarettes, uncomplicated
CPT/HCPCS: 72190; 72220; 99212; G0463

== ENCOUNTER → 2021-12-04 13:08 | Outpatient (CLI) | payer MEDICAID, SELFPAY ==
[2021-12-11 19:09] LABS: Calprotectin, Fecal 49 ug/g (0-120)
== END ==
PROVIDERS: Internal Medicine Gastroenterology; PCP Family Medicine
DX: A04.72 Enterocolitis due to Clostridium difficile, not specified as recurrent (principal)
CPT/HCPCS: 83993

== ENCOUNTER 2022-08-01 21:26 | Emergency (ER) | payer MEDICAID, SELFPAY ==
[2022-08-01 21:40] VITALS: BP 135/91; PULSE 100; RESP 18; TEMP 36.4; O2SAT 99; BMI 24.2
--- NOTE | 2022-08-01 21:44 | ECG_ITS ---
APPROVED REPORT Exam: Resting ECG HR:101 bpm ECG Measurements Heart Rate 101 AXES SD 137 P 59 QRSd 74 QRS 79 QT 354 T 73 QTc 412 Conclusion SINUS TACHYCARDIA ABNORMAL RHYTHM ECG UNCONFIRMED REPORT Electronically signed by : Hipolito Corbett MD 08/02/2022 17:17:40
--- NOTE | 2022-08-01 21:44 | CT_ITS ---
PROCEDURE INFORMATION: Exam: CT Abdomen And Pelvis With Contrast Exam date and time: 08/01/2022 10:05 PM Age: 36 years old Clinical indication: Abdominal pain; Additional info: Abd pain TECHNIQUE: Imaging protocol: Computed tomography of the abdomen and pelvis with contrast. Radiation optimization: All CT scans at this facility use at least one of these dose optimization techniques: automated exposure control; mA and/or kV adjustment per patient size (includes targeted exams where dose is matched to clinical indication); or iterative reconstruction. Contrast material: ISOVUE; Contrast volume: 75 ml; Contrast route: IV; REPORTING DATA: Count of CT and Cardiac NM exams in prior 12 months: This patient has received 0 known CTs and 0 known cardiac nuclear medicine studies in the 12 months prior to the current study. COMPARISON: CR XR PELVIS MIN 3V 09/21/2021 7:18 PM FINDINGS: Liver: Normal. No mass. Gallbladder and bile ducts: Gallbladder wall thickening. No calcified stones. Pancreas: Normal. No ductal dilation. Spleen: Normal. No splenomegaly. Adrenal glands: Normal. No mass. Kidneys and ureters: Normal. No hydronephrosis. Stomach and bowel: Unremarkable. No obstruction. No mucosal thickening. Appendix: No evidence of appendicitis. Intraperitoneal space: Unremarkable. No free air. No significant fluid collection. Vasculature: Unremarkable. No abdominal aortic aneurysm. Lymph nodes: Unremarkable. No enlarged lymph nodes. Urinary bladder: Unremarkable as visualized. Reproductive: Hysterectomy. Bones/joints: Unremarkable. No acute fracture. Soft tissues: Unremarkable. IMPRESSION: Gallbladder wall prominence. No calcified stones. Correlate for right upper quadrant pain.
[2022-08-01 21:53] LABS: Microscopic, Urine URINE MICROSCOPIC (MICROSCOPIC)
--- NOTE | 2022-08-01 21:58 | PC.NURSE ---
pt going to scan
[2022-08-01 22:03] LABS: Basophils # 0.2 K/mm3 (0-0.2); Basophils % 1.2 % (0.1-2.0); Eosinophils # 0.4 K/mm3 (0.0-0.4); Eosinophils % 3.1 % (0.1-12.0); Hematocrit 46.6 % (37.0-47.0); Hemoglobin 15.7 g/dL (12.2-16.2); Lymphocytes # 3.7 K/mm3 (0.7-4.5); Lymphocytes % 27.5 % (10-50); Mean Corpuscular HGB Conc 33.7 g/dL (31.8-35.4); Mean Corpuscular Hemoglobin 30.8 pg (27.0-31.2); Mean Corpuscular Volume 91.5 fl (81-99); Monocytes # 0.3 K/mm3 (0.1-1.0); Monocytes % 2.5 % (1.7-9.3); Neutrophils # 8.8 K/mm3 (1.8-7.8); Neutrophils % 65.7 % (37.0-80.0); Platelet Count 276 K/mm3 (142-424); Red Cell Distribution Width 13.1 % (11.5-17.5); White Blood Count 13.4 K/mm3 (4.8-10.8)
[2022-08-01 22:09] LABS: Alanine Aminotransferase 47 U/L (12-78); Albumin Level 5.3 g/dl (3.5-5.0); Albumin/Globulin Ratio 1.7 (1.1-1.8); Alkaline Phosphatase 105 U/L (38-126); Amylase 66 U/L (30-110); Anion Gap 12.6 mEq/L (5-15); Aspartate Amino Transferase 67 U/L (14-36); Bilirubin,Total 0.6 mg/dl (0.2-1.3); Blood Urea Nitrogen 10 mg/dl (7-17); Calcium 9.6 mg/dl (8.4-10.2); Carbon Dioxide 25 mmol/L (22.0-30.0); Chloride 105 mmol/L (98-107); Creatinine Clearance Estimated 119 mL/min (50-200); Estimated Glomerular Filt Rate 95 ml/min (>60); GFR (African American) 115 ML/MIN (>60); Globulin 3.1 g/dL (1.3-3.2); Glucose 97 mg/dl (74-100); Lipase 93 U/L (23-300); Potassium 3.6 mmoL/L (3.5-5.1); Sodium 139 mmol/L (136-145); Total Protein,Serum 8.4 g/dl (6.3-8.2)
[2022-08-01 22:18] LABS: Appearance,Urine CLEAR (Clear); Bilirubin,Urine Negative (Negative); Blood, Urine 3+ (Negative); Color,Urine YELLOW (Yellow); Glucose,Urine (UA) Negative (Negative); Ketones,Urine Negative (Negative); Leukocyte Esterase,Urine Negative (Negative); Nitrate,Urine Negative (Negative); Protein,Urine Negative (Negative); Specific Gravity, Urine 1.025 (1.005-1.030); Urobilinogen,Urine 0.2 EU/dl (0.2)
[2022-08-01 22:22] LABS: Squamous Epithelial Cell,Urine Occasional #/hpf (0-5); WBC,Urine Occasional #/hpf (0-3)
[2022-08-01 22:28] LABS: Procalcitonin 0.042 ng/mL (0.0-2.0)
[2022-08-01 22:35] LABS: Erythrocyte Sedimentation Rate 10 mm/hr (0-20)
--- NOTE | 2022-08-01 22:53 | HMH.EDABDPAI ---
Discharge Plan Disposition Patient Disposition: Home, Self-Care Chief Complaint: Abdominal Pain Prescriptions Prescriptions: No Action famotidine [Acid Tumbler Drier Operator (famotidine)] 20 mg tablet 20 mg PO DAILY Qty: 30 2RF fluticasone propionate [Flonase Allergy Relief] 50 mcg/actuation spray,suspension 1 spray INTRANASAL DAILY Qty: 16 2RF Rx Instructions: administer into each nostril diazepam [Valium] 10 mg tablet 10 mg PO BID PRN (Reason: anxiety) Qty: 60 0RF mirtazapine [Remeron] 15 mg tablet 15 mg PO QHS Qty: 30 1RF Referrals Follow up/Referrals: Jonathan Quispe MD [Primary Care Provider] - See instructions Clinical Impressions Clinical Impression: Abdominal pain Instructions Patient Instructions: DI for Acute Abdominal Pain, DI for General Gallbladder Conditions Discharge ED Provider: Brittaney (ED)Jonathan Abdominal Pain HPI General Chief Complaint: Abdominal Pain Stated Complaint: stomach and shoulders Time Seen by Provider: 08/01/22 22:54 Mode of Arrival: Ambulatory Source of Information: Patient and Medical Record Limitations: No Limitations Description of Symptoms (Recalled from ER Triage Doc. by RN): Pt arrives via private vehicle with c/o upper central abdominal pain that began 2.5 hours ago. States that the pain is sharp and radiates into her upper back and shoulder blades. Denies any injury. Reports nausea but no vomiting and no diarrhea. History of Present Illness HPI narrative: upper abd pain over the last few hrs complaint: abdominal pain Onset (ago): hour(s) Consistency: intermittent Location: RUQ and epigastric Severity: moderate Quality: sharp Radiation: back Associated symptoms: nausea Related Data Previous Rx's Medication Instructions Recorded famotidine 20 mg tablet (Acid 20 mg PO DAILY #30 tabs 11/21/20 Tumbler Drier Operator (famotidine)) fluticasone propionate 50 1 spray intranasal DAILY #16 grams 12/11/20 mcg/actuation nasal spray,suspension (Flonase Allergy Relief) diazepam 10 mg tablet (Valium) 10 mg PO BID PRN anxiety #60 tabs 06/11/22 mirtazapine 15 mg tablet (Remeron) 15 mg PO QHS #30 tabs 06/11/22 Allergies Allergy/AdvReac Type Severity Reaction Status Date / Time No Known Drug Allergies Allergy Unknown Verified 06/09/22 14:32 PFSH PFSH Disclaimer: The information contained in this section may have been updated after the patient was seen, as this information can be updated by other users. Medical History (Updated 08/02/22 @ 00:01 by Jonathan Quispe (ED)MD) Insomnia Panic disorder Posttraumatic stress disorder Social History Smoking Status: Never smoker second hand exposure: Yes alcohol intake: current substance use type: denies use current occupational status: employed Travel in the last 8 weeks: None household members: spouse and family housing: house number of children: 2 current occupation: [employer] current occupational exposures/hazards: No caffeine: Yes ROS Obtained: Yes All systems reviewed & no additional complaints except as documented Physical Exam General General appearance: alert Head Head exam: normocephalic Eye Eye exam: Present PERRL and EOMI ENT ENT exam: Present mucous membranes moist Neck Neck exam: Present trachea midline Respiratory Respiratory exam: Absent respiratory distress Cardiovascular Cardiovascular exam: Present regular rate Abdominal Exam Abdominal exam: Present soft, tenderness and Flores's sign; Absent guarding or rebound Abdominal tenderness: Present RUQ, epigastrium and moderate Extremities Exam Extremities exam: Present full ROM Neurological Exam Neurological exam: Present alert, oriented X3 and CN II-XII intact; Absent motor sensory deficit Psychiatric Psychiatric exam: Present normal affect Skin Skin exam: Absent rash Medical Decision Making Medical Records Medical records reviewed: Yes I reviewed the patient's medical records. Sim Pina
[2022-08-01 23:54] VITALS: BP 134/74; PULSE 80; RESP 18; TEMP 36.4; O2SAT 99
== END 2022-08-02 00:07 | disposition home or self-care (01) ==
PROVIDERS: Emergency Provider Emergency Medicine; PCP Emergency Medicine
DX: R10.10 Upper abdominal pain, unspecified (principal); G47.00 Insomnia, unspecified; F41.0 Panic disorder [episodic paroxysmal anxiety]; F43.10 Post-traumatic stress disorder, unspecified
CPT/HCPCS: 74177; 80053; 81001; 82150; 83690; 83735; 84145; 85025; 85651; 86140; 93005; 96361; 96374; 96375; 99284; 99285; J0131; J2405; Q9967

== ENCOUNTER 2022-09-13 17:32 | Emergency (ER) | payer MEDICAID, SELFPAY ==
[2022-09-13 18:10] VITALS: BP 117/78; PULSE 99; RESP 20; TEMP 37.1; O2SAT 98; BMI 24.3
[2022-09-13 18:13] LABS: UTC Strep Screen (Rapid) Positive (Negative)
--- NOTE | 2022-09-13 18:22 | EXP.UTC ---
Discharge Plan Disposition Patient Disposition: Home, Self-Care Condition: Good Prescriptions Prescriptions: No Action diazepam [Valium] 10 mg tablet 10 mg PO BID PRN (Reason: anxiety) Qty: 60 0RF mirtazapine [Remeron] 15 mg tablet 15 mg PO QHS Qty: 30 1RF pantoprazole [Protonix] 40 mg tablet,delayed release (DR/EC) 40 mg PO DAILY Qty: 30 0RF Referrals Follow up/Referrals: Jonathan Quispe MD [Primary Care Provider] - See instructions Activity Restrictions/Add. Instructions Additional Instructions/Restrictions: Drink plenty of fluids. Take tylenol or ibuprofen for pain or fever. Follow up with your regular doctor. GO TO THE ER FOR ANY WORSENING SYMPTOMS Throw your tooth brush away and get a new one. Clinical Impressions Clinical Impression: Strep throat Instructions Patient Instructions: Strep Throat, DI for Strep Throat Discharge ED Provider: Juan Roberts [facility] [place] H[place] General Stated complaint: Sore throat; cough; headache Time Seen by Provider: 09/13/22 18:22 History of Present Illness Provider Complaint: She states that for the past 2 days she has had worsening sore throat, ear pain, and sinus congestion. Related Data Previous Rx's Medication Instructions Recorded pantoprazole 40 mg tablet,delayed 40 mg PO DAILY #30 tabs 08/04/22 release (Protonix) diazepam 10 mg tablet (Valium) 10 mg PO BID PRN anxiety #60 tabs 09/08/22 mirtazapine 15 mg tablet (Remeron) 15 mg PO QHS #30 tabs 09/08/22 Allergies Allergy/AdvReac Type Severity Reaction Status Date / Time No Known Drug Allergies Allergy Unknown Verified 09/08/22 13:53 [facility] Disclaimer: The information contained in this section may have been updated after the patient was seen, as this information can be updated by other users. Medical History Insomnia Panic disorder Posttraumatic stress disorder Social History Smoking Status: Never smoker second hand exposure: Yes alcohol intake: current substance use type: denies use current occupational status: employed Travel in the last 8 weeks: None household members: spouse and family housing: house number of children: 2 current occupation: [employer] current occupational exposures/hazards: No caffeine: Yes ROS Obtained: Yes All systems reviewed & no additional complaints except as documented Constitutional Constitutional: Reports chills and Reports fever(s) Eyes Eyes: Denies eye discharge ENT Ears, Nose, Mouth, and Throat: Reports as per HPI Cardiovascular Cardiovascular: Denies chest pain Respiratory Respiratory: Denies chest congestion and Reports cough Gastrointestinal Gastrointestingal: Reports nausea; Denies abdominal pain, constipation, cramping, diarrhea or vomiting Musculoskeletal Musculoskeletal: Denies arthralgias Integumentary/Breasts Skin/Breast: Denies rash Neurologic Neurologic: Denies paresthesias Physical Exam General General appearance: alert and in no apparent distress Head Head exam: atraumatic, normocephalic and normal inspection Eye Eye exam: Present normal appearance, PERRL and EOMI ENT ENT exam: Present mucous membranes moist and normal external ear exam Expanded ENT Exam TM/Canal exam: Bilateral TM: erythema and bulging Nose exam: Absent sinus tenderness Mouth exam: Present normal external inspection; Absent drooling Teeth exam: Present normal inspection Throat exam: Present tonsillar erythema, tonsillomegaly and tonsillar exudate Neck Neck exam: Present normal inspection, full ROM and trachea midline; Absent tenderness, meningismus or lymphadenopathy Chest Chest inspection: Present normal inspection and symmetric chest wall rise; Absent tenderness Respiratory Respiratory exam: Present normal lung sounds bilaterally; Absent respiratory distress, wheezes or stridor Cardiovascular Cardiovascul
[2022-09-13 18:38] VITALS: BP 117/78; PULSE 99; RESP 20; TEMP 37.1; O2SAT 98
== END 2022-09-13 18:47 | disposition home or self-care (01) ==
PROVIDERS: Emergency Provider Nurse Practitioner Family; PCP Emergency Medicine
DX: J02.0 Streptococcal pharyngitis (principal); R51.9 Headache, unspecified
CPT/HCPCS: 87880; 96372; 99212; 99214; G0463; J0561

== ENCOUNTER → 2023-01-28 16:32 | Outpatient (CLI) | payer MEDICAID, SELFPAY ==
[2023-01-28 16:17] LABS: Benzodiazepines Screen,Urine Positive ng/ml (<200)
[2023-01-28 16:18] LABS: Amphetamine/Metha Screen,Urine Negative ng/ml (<1000); Barbiturates Screen,Urine Negative ng/ml (<200)
[2023-01-28 16:19] LABS: Cannabinoid Screen,Urine Negative ng/ml (<50); Methadone Screen,Urine Negative ng/ml (<300)
[2023-01-28 16:20] LABS: Cocaine Screen,Urine Negative ng/ml (<300)
[2023-01-28 16:23] LABS: Opiate Screen,Urine Negative ng/ml (<300)
[2023-01-28 16:24] LABS: Phencyclidine Screen,Urine Negative ng/ml (<25)
== END ==
PROVIDERS: Visit Provider Nurse Practitioner Psychiatric/Mental Health
DX: Z79.899 Other long term (current) drug therapy (principal)
CPT/HCPCS: 80305

== ENCOUNTER 2023-06-16 18:44 | Outpatient (CLI) | payer MEDICAID, SELFPAY ==
[2023-06-16 18:09] LABS: Basophils # 0.1 K/mm3 (0-0.2); Basophils % 1.5 % (0.1-2.0); Eosinophils # 0.4 K/mm3 (0.0-0.4); Eosinophils % 5.7 % (0.1-12.0); Hematocrit 42.3 % (37.0-47.0); Hemoglobin 14.4 g/dL (12.2-16.2); Lymphocytes # 3.4 K/mm3 (0.7-4.5); Lymphocytes % 44.2 % (10-50); Mean Corpuscular HGB Conc 34.1 g/dL (31.8-35.4); Mean Corpuscular Hemoglobin 30.4 pg (27.0-31.2); Mean Corpuscular Volume 89.1 fl (81-99); Mean Platelet Volume 8.7 fl (7.4-10.4); Monocytes # 0.4 K/mm3 (0.1-1.0); Monocytes % 4.6 % (1.7-9.3); Neutrophils # 3.4 K/mm3 (1.8-7.8); Neutrophils % 44.1 % (37.0-80.0); Platelet Count 376 K/mm3 (142-424); Red Blood Count 4.75 M/mm3 (4.20-5.40); Red Cell Distribution Width 13.2 % (11.5-17.5); White Blood Count 7.8 K/mm3 (4.8-10.8)
[2023-06-16 19:51] LABS: Chloride 106 mmol/L (98-107); Potassium 4.2 mmoL/L (3.5-5.1); Sodium 141 mmol/L (136-145)
[2023-06-16 19:54] LABS: Alanine Aminotransferase 51 U/L (12-78); Albumin/Globulin Ratio 1.4 (1.1-1.8); Alkaline Phosphatase 111 U/L (38-126); Anion Gap 12.2 mEq/L (5-15); Aspartate Amino Transferase 46 U/L (14-36); Bilirubin,Total 0.4 mg/dl (0.2-1.3); Blood Urea Nitrogen 9 mg/dl (7-17); Calcium 9.6 mg/dl (8.4-10.2); Carbon Dioxide 27 mmol/L (22.0-30.0); Cholesterol 291 mg/dl (140-200); Estimated Glomerular Filt Rate 81 ml/min (>60); GFR (African American) 98 ML/MIN (>60); Globulin 2.9 g/dL (1.3-3.2); Glucose 108 mg/dl (74-100); Iron 80 ug/dL (37-170); Total Protein,Serum 6.9 g/dl (6.3-8.2)
[2023-06-16 19:55] LABS: Chol/HDL Ratio 8.8 (1-3.5); HDL Cholesterol 33 mg/dl (40-60)
[2023-06-16 20:09] LABS: Direct LDL Cholesterol 109.64 mg/dL (100-129)
[2023-06-16 20:10] LABS: C-Reactive Protein 9.5 mg/L (0-4)
[2023-06-16 20:12] LABS: Total Iron Binding Capacity 270 ug/dL (265-497)
[2023-06-16 20:27] LABS: Thyroid Stimulating Hormone 1.29 uIU/mL (0.465-4.68)
[2023-06-16 20:30] LABS: Ferritin 76.1 ng/ml (6.24-137)
[2023-06-16 20:41] LABS: Triglycerides 768 mg/dl (30-150)
[2023-06-16 20:42] LABS: 25-OH Vitamin D, Total 16.2 ng/mL (30-100)
[2023-06-16 21:13] LABS: Vitamin B12 436 pg/mL (239-931)
[2023-06-16 21:32] LABS: Folate 8.48 ng/mL
[2023-06-18 08:37] LABS: Estradiol 23.8 pg/mL (.); FSH 5.9 mIU/mL (.); LH 8.7 mIU/mL (.); Prolactin 9.6 ng/mL (4.8-33.4)
[2023-06-18 11:36] LABS: Anti-Centromere B Antibodies <0.2 AI (0.0-0.9); Anti-DNA (DS) Ab Qn <1 IU/mL (0-9); Anti-Jo-1 <0.2 AI (0.0-0.9); Anti-Smith Antibody <0.2 AI (0.0-0.9); Antichromatin Antibodies <0.2 AI (0.0-0.9); Antiscleroderma-70 Antibodies <0.2 AI (0.0-0.9); RNP Antibodies <0.2 AI (0.0-0.9); Sjogren's Anti-SS-A <0.2 AI (0.0-0.9); Sjogren's Anti-SS-B <0.2 AI (0.0-0.9)
[2023-06-23 10:03] LABS: Testosterone, Total, LC/MS 25 ng/dL (.)
== END 2023-06-16 23:59 ==
LOC: LAB.DROPOF 18:44
PROVIDERS: PCP Student in an Organized Health Care Education/Training Program; Visit Provider Student in an Organized Health Care Education/Training Program
DX: M32.9 Systemic lupus erythematosus, unspecified (principal); R53.83 Other fatigue; R23.2 Flushing; L68.0 Hirsutism; E66.3 Overweight; Z68.29 Body mass index [BMI] 29.0-29.9, adult; E55.9 Vitamin D deficiency, unspecified; Z79.899 Other long term (current) drug therapy
CPT/HCPCS: 80053; 80061; 82306; 82607; 82626; 82670; 82728; 82746; 83001; 83002; 83540; 83550; 84146; 84403; 84439; 84443; 85025; 86140; 86225; 86235

== ENCOUNTER 2023-08-09 09:51 | Outpatient (CLI) | payer MEDICAID, SELFPAY ==
--- NOTE | 2023-08-09 09:52 | CT_ITS ---
FINAL REPORT CLINICAL HISTORY: frequent falls, ataxia, SPARKS COMPARISON: None FINDINGS: Axial images of the head were obtained without contrast. Coronal and sagittal reformatted images were also obtained.This study was performed with techniques to keep radiation doses as low as reasonably achievable (ALARA). Individualized dose reduction techniques using automated exposure control or adjustment of mA and/or kV according to the patient's size were employed. There is no evidence of intracranial hemorrhage or mass. The ventricular size is within normal limits. There is no evidence of shift of the midline structures. No abnormal extra axial fluid collection is identified. No skull abnormality is seen on the bone window images. There is mild mucosal thickening in the paranasal sinuses, with fluid and/or debris in the left maxillary and sphenoid sinuses, consistent with sinusitis. IMPRESSION: No acute intracranial abnormality. Fluid and/or debris in the left maxillary and sphenoid sinuses consistent with sinusitis. Reviewed, Interpreted and Dictated by Anurag Saba III, MD Transcribed by Nancy Layton Authenticated and [facility]
== END 2023-08-09 23:59 ==
LOC: RAD 09:52
PROVIDERS: PCP Student in an Organized Health Care Education/Training Program; Visit Provider Student in an Organized Health Care Education/Training Program
DX: R29.6 Repeated falls (principal); R27.0 Ataxia, unspecified; R51.9 Headache, unspecified; G89.29 Other chronic pain
CPT/HCPCS: 70450

== ENCOUNTER 2023-10-04 15:15 | Outpatient (CLI) | payer MEDICAID, SELFPAY ==
[2023-10-04 15:45] LABS: Basophils # 0.2 K/mm3 (0-0.2); Eosinophils # 0.2 K/mm3 (0.0-0.4); Eosinophils % 2.5 % (0.1-12.0); Hematocrit 45.1 % (37.0-47.0); Hemoglobin 14.8 g/dL (12.2-16.2); Lymphocytes % 38.8 % (10-50); Mean Corpuscular HGB Conc 32.8 g/dL (31.8-35.4); Mean Corpuscular Hemoglobin 29.3 pg (27.0-31.2); Mean Corpuscular Volume 89.3 fl (81-99); Mean Platelet Volume 7.7 fl (7.4-10.4); Monocytes # 0.3 K/mm3 (0.1-1.0); Monocytes % 3.6 % (1.7-9.3); Neutrophils # 4.1 K/mm3 (1.8-7.8); Neutrophils % 53.2 % (37.0-80.0); Platelet Count 246 K/mm3 (142-424); Red Blood Count 5.05 M/mm3 (4.20-5.40); Red Cell Distribution Width 13.7 % (11.5-17.5); White Blood Count 7.7 K/mm3 (4.8-10.8)
[2023-10-04 16:05] LABS: D-Dimer 0.63 ug/mL (0.0-0.5)
[2023-10-04 16:53] LABS: Alanine Aminotransferase 50 U/L (12-78); Albumin Level 4.7 g/dl (3.5-5.0); Alkaline Phosphatase 97 U/L (38-126); Anion Gap 15.3 mEq/L (5-15); Aspartate Amino Transferase 47 U/L (14-36); Bilirubin,Direct 0.2 mg/dl (0.0-0.4); Bilirubin,Indirect 0.4 mg/dL (0.0-0.9); Bilirubin,Total 0.6 mg/dl (0.2-1.3); Bilirubin,Unconjugated 0.4 mg/dL (0.0-1.1); Blood Urea Nitrogen 5 mg/dl (7-17); Carbon Dioxide 27 mmol/L (22.0-30.0); Chloride 104 mmol/L (98-107); Chol/HDL Ratio 5.6 (1-3.5); Cholesterol 235 mg/dl (140-200); Estimated Glomerular Filt Rate 81 ml/min (>60); GFR (African American) 98 ML/MIN (>60); Glucose 97 mg/dl (74-100); HDL Cholesterol 42 mg/dl (40-60); Potassium 4.3 mmoL/L (3.5-5.1); Sodium 142 mmol/L (136-145); Total Protein,Serum 7.8 g/dl (6.3-8.2); Triglycerides 350 mg/dl (30-150); VLDL Cholesterol 70 mg/dL (0-40)
[2023-10-04 17:10] LABS: Free T4 (Free Thyroxine) 0.99 ng/dl (0.78-2.19)
[2023-10-04 17:24] LABS: Thyroid Stimulating Hormone 0.25 uIU/mL (0.465-4.68)
== END 2023-10-04 23:59 | disposition home or self-care (01) ==
LOC: LAB 15:16
PROVIDERS: PCP Nurse Practitioner Family; Visit Provider Internal Medicine
DX: R06.00 Dyspnea, unspecified (principal); R07.9 Chest pain, unspecified; R00.2 Palpitations; R51.9 Headache, unspecified; R00.0 Tachycardia, unspecified; Z22.1 Carrier of other intestinal infectious diseases; Z98.51 Tubal ligation status; Z72.0 Tobacco use; Z90.710 Acquired absence of both cervix and uterus
CPT/HCPCS: 36415; 80048; 80061; 80076; 83735; 84439; 84443; 85025; 85378; 93225

== ENCOUNTER 2023-10-06 13:58 | Outpatient (CLI) | payer MEDICAID, SELFPAY ==
--- NOTE | 2023-10-06 14:09 | CT_ITS ---
FINAL REPORT CLINICAL HISTORY: elevated D dimer, tachycardia, dyspnea COMPARISON: None FINDINGS: Thin section axial CT images of the chest were obtained with contrast. 3D reformatted images were also obtained. This study was performed with techniques to keep radiation doses as low as reasonably achievable (ALARA). Individualized dose reduction techniques using automated exposure control or adjustment of mA and/or kV according to the patient's size were employed. There is no evidence of pulmonary embolism. There is no evidence of thoracic aortic aneurysm or dissection. There is no evidence of mediastinal or hilar mass or adenopathy. There is no evidence of pulmonary mass or nodule. There is mild atelectasis in the lung bases. There is a calcified granuloma in the right lung base. Limited images of the upper abdomen are unremarkable. IMPRESSION: No evidence of pulmonary embolism. Mild atelectasis in the lung bases. Reviewed, Interpreted and Dictated by Anurag Saba III, MD Transcribed by Shelbie Taylor Authenticated and [facility]
[2023-10-06] MEDS: SODIUM CHLORIDE 0.9% 10ML SYR (RAD ONLY) 10 ML IV (14:48)
[2023-10-06] MEDS: IOPAMIDOL-370 (76%);100ML BOTTLE 70 ML IV (14:48)
[2023-10-06] MEDS: 0.9 % SODIUM CHLORIDE 50 ML VIAL IV (14:48)
--- NOTE | 2023-10-12 10:08 | PC.NURSE ---
CARDIAC EVENT MONITOR CANCELLED - INSURANCE DENIED
== END 2023-10-06 23:59 | disposition home or self-care (01) ==
PROVIDERS: PCP Nurse Practitioner Family; Visit Provider Nurse Practitioner
DX: R06.00 Dyspnea, unspecified (principal); R00.0 Tachycardia, unspecified; R79.89 Other specified abnormal findings of blood chemistry
CPT/HCPCS: 71275; 93270; Q9967

== ENCOUNTER 2023-10-13 10:57 | Outpatient (CLI) | payer MEDICAID, SELFPAY ==
--- NOTE | 2023-10-13 10:57 | CA_ITS ---
APPROVED REPORT EXAM: Comprehensive 2D, Doppler, and color-flow Echocardiogram Security Program Manager: Zofia Jacobo RVT Ht: 5 ft 6 in Wt: 167lbs BSA: 1.85 BP: 140/96 mmHg Indications: CP,TACHYCARDIA,ABN EKG,PALPS,BERRY 2D Dimensions LA Volume 13.80 mL LA Volume Index 7.46 mL/m2 (M/F) 16-34 M-Mode Dimensions RVDd 2.31 cm (0.9-2.6) LA Diam 2.12 cm (1.9-4.0) LVDd 2.45 cm (3.5-5.7) LVDs 1.68 cm (3.5-5.7) IVSd 0.77 cm (0.6-1.1) PWd 0.94 cm (0.6-1.1) EF (Teich) 61.80% FS 31.40% EDV (Teich) 21.20 mL TAPSE 1.90 (<1.7) ESV (Teich) 8.10 mL LV Diastology E Decel Time 243 (160-240 msec) E/A Ratio 0.8 Aortic Valve MARTELL Index 1.54 cm2/m2 AoV Peak Jaylen. 98.0 (50-130 cm/s) AO Peak GR. 3.80 mmHg AO Mean GR. 2.20 (<5 mmHg) AO VTI 15.9 (18-25 cm) MARTELL (VTI) 2.93 (2.5-4.5 cm2) Mitral Valve MV E Max Jaylen. 53.0 (40-130 cm/s) MV A Velocity 67.0 (40-130 cm/s) E/A Ratio 0.79 MV PHT 71.0 ms Pulmonary Valve PV Peak Velocity 76.0 (50-150 cm/s) Tricuspid Valve TR P. Velocity 234.00 cm/s RAP Estimate 10.00 mmHg RVSP 32.00 mmHg Left Ventricle The left ventricle is normal size. The left ventricular systolic function is normal. The left ventricular ejection fraction is within the normal range. There is normal LV wall thickness. There is normal LV segmental wall motion. The left ventricular diastolic function is normal. LVEF is 55%. Right Ventricle The right ventricle is borderline dilated. The right ventricular systolic function is normal. Atria The left atrium size is normal. The right atrium size is normal. There is no color Doppler evidence of interatrial shunt. Aortic Valve The aortic valve opens well. There is no aortic valvular stenosis. No aortic regurgitation is present. Mitral Valve The mitral valve is normal in structure. No evidence of mitral valve stenosis. Mild mitral regurgitation. Tricuspid Valve The tricuspid valve leaflets are thin and pliable. Trace tricuspid regurgitation. RVSP is 20-25 mmHg. Pulmonic Valve The pulmonary valve is normal in structure. Trace pulmonic regurgitation. Great Vessels The aortic root is normal in size. The ascending aorta is normal in size. IVC is normal in size and collapses >50% with inspiration. Pericardium There is no pericardial effusion. Other Information Study Quality: Fair Conclusion Normal biventricular systolic function. Borderline dilated RV with normal RV function. Mild MR. Electronically signed by : Angélica Rowe MD 10/13/2023 12:53:11
== END 2023-10-13 23:59 | disposition home or self-care (01) ==
LOC: RAD 10:57
PROVIDERS: PCP Nurse Practitioner Family; Visit Provider Nurse Practitioner Family
DX: R00.0 Tachycardia, unspecified (principal); R07.9 Chest pain, unspecified
CPT/HCPCS: 93306

== ENCOUNTER 2023-10-19 11:49 | Outpatient (CLI) | payer MEDICAID, SELFPAY ==
--- NOTE | 2023-10-19 11:50 | CT_ITS ---
APPROVED REPORT Cloth Mender: CLINICAL INDICATION Chest Pain TECHNIQUE Image Acquisition: A 128 slice MDCT scanner ([employer]) was used for data acquisition. A noncontrast coronary calcium scan was performed. A CT attenuation threshold of 130 Hounsfield units (HU) was used for the detection of calcium in contiguous voxels of 1 sq mm in area to be counted as individual lesions. Bolus tracking in the ascending aorta with a threshold of 180 HU was performed. Immediately afterwards, ECG synchronized cardiac CT was then performed from the cardiac base to apex using retrospective gating with ECG tube current modulation. A total of 85 mL of Isovue 370 mg/mL contrast medium was administered at 5 mL/sec followed by a saline flush using a biphasic injection protocol. A tube voltage of 120 KVp was used. The patient received the following medications prior to the cardiac CT. 125 mg of oral metoprolol 15 mg of oral ivabradine 0.8 mg of sublingual nitroglycerin The average heart rate at the time of acquisition was 59 bpm and regular. Image Reconstruction Transaxial images were reconstructed at 0.67 mm slide thickness. Data was reviewed interactively on an advanced workstation capable of 2 and 3-dimensional displays in all conventional reconstruction formats, including multiplanar reformations, maximum intensity projections, curved multiplanar reformations, and volume rendered reconstructions. When applicable, selected routine images describing the relevant coronary anatomy and pathology were saved and sent to PACS. Complications None Technical Quality Overall image quality was good. Coronary artery opacification was adequate. Total DLP (Dose-Length Product) is 1507.9 mGy-cm. The reported value represents the total of one or more individual components during the CT acquisition of this date and at this time, and as such, the same value may appear in more than one CT report depending on the interpreting/reporting physicians. COMPARISON None FINDINGS CT Coronary Calcium Scoring LMA (Left Main Artery) = 0 LAD (Left Anterior Descending) = 0 LCX (Left Coronary Circumflex) = 0 RCA (Right Coronary Artery) = 0 Total Calcium Score = 0 using the AJ-130 method. The interpretation of the calcium heart score is based on the following continuum*: 0 = no calcified plaque detected (risk of coronary artery disease is very low ??? less than 5%) 1-10 = calcium detected in extremely minimal levels (risk of coronary diseases is still low ??? less than 10%) 11-100 = mild levels of plaque detected with certainty (mild or minimal narrowing of heart arteries is likely) 101-400 = definite,at least moderate levels of plaque detected (relatively high risk of a heart attack within 3-5 years) >401-999 = extensive levels of plaque detected (high risk of heart attack, high levels of vascular disease are present, high likelihood of at least one significant coronary narrowing) *The calcium heart score quantifies the burden of coronary calcification/plaque in the coronary arteries. The calcium heart score is not able to evaluate the presence or burden of non-calcified (i.e. soft) plaque. There is no identifiable calcification in the aortic valve, mitral annulus or mitral valve, pericardium, or myocardium. Coronary CT Angiography The coronary arterial system is right dominant. Quantitative Stenosis Grading: Left Main (LM): The left main originates normally from the left sinus of Valsalva. The LM bifurcates into the left anterior descending artery and left circumflex artery. The LM is patent with no evidence of atherosclerosis. Left Anterior Descending (LAD) and Diagonal Branches: The LAD gives off 3 diagonal branch(es). The LAD and its branches are patent with no evidence of atherosclerosis. There is no evidence of LAD-myocardial bridge. Left Circumflex (LCX) and Obtuse Marginals (OM): The LCX gives off 1 Obtuse Marginal (OM) branch(es). The LCX and its branches are patent with no evidence of atherosclerosis. Right Coronary Artery (RCA): The RCA originates normally from the right sinus of Valsalva. The RCA gives off a posterior descending artery (PDA) and posterolateral (PL) branches. The RCA and its branches are patent with no evidence of atherosclerosis. Non-Coronary Cardiac Findings: Analysis of the left ventricular (LV) structure and function was performed after 3-D reconstruction of the LV from axial images, with user-corrected automatic contouring for assessment of LV volumes and user-defined reconstruction from oblique planes for measurement of 3-D cardiac structure and function. -The left ventricle systolic function is normal. -There is no left atrial appendage filling defect. Two right pulmonary veins and two left pulmonary veins drain normally into the left atrium. -No pericardial thickening or calcification. -Central and branch pulmonary arteries in the orwar-dh-yoli are unremarkable. -Thoracic aorta within the visualized thoracic aortic-branches in the ewaic-sf-exif is unremarkable. Extracardiac Structures No significant extra-cardiac findings. Note, however, that this study is focused on the cardiac findings. IMPRESSION -No coronary calcification with an Agatston score = 0 using the AJ-130 method. -No evidence of significant flow-limiting atherosclerosis of the coronary arteries. -No evidence of coronary anomalies or bridges. -CAD-RADS 0. Management recommendations per ACC/AHA guidelines*, as clinically appropriate. *Recommendations: CAD RADS 0: Reassurance. Consider non-atherosclerotic causes of chest pain. CAD RADS 1: Consider non-atherosclerotic causes of chest pain. Consider preventive therapy and risk factor modification. CAD RADS 2: Consider non-atherosclerotic causes of chest pain. Consider preventive therapy and risk factor modification, particularly for patients with nonobstructive plaque in multiple segments. CAD RADS 3: Consider further functional testing. Consider symptom-guided anti-ischemic and preventive pharmacotherapy as well as risk factor modification per published guideline statements. CAD RADS 4A: Consider further functional testing or invasive coronary angiography with revascularization per published guideline statements. Consider symptom-guided anti-ischemic and preventive pharmacotherapy as well as risk factor modification per published guideline statements. CAD RADS 4B: Invasive coronary angiography recommended with revascularization per published guideline statements. Consider symptom-guided anti-ischemic and preventive pharmacotherapy as well as risk factor modification per published guideline statements. CAD RADS 5: Consider invasive angiography and/or viability assessment with revascularization per published guideline statements. Consider symptom-guided anti-ischemic and preventive pharmacotherapy as well as risk factor modification per published guideline statements. CRITICAL RESULT None COMMUNICATION Per this written report The coronary and cardiac findings of this CCTA were reviewed, reported, and signed by Pastor Rowe MD (Bioinformatics Associate) Conclusion Electronically signed by : Angélica Rowe MD 10/21/2023 11:58:08
[2023-10-19 12:21] VITALS: BMI 26.4
[2023-10-19 12:39] VITALS: BP 112/85; PULSE 107; RESP 18; TEMP 37.1; O2SAT 99
[2023-10-19] MEDS: IVABRADINE HCL 7.5MG TABLET PO (12:58)
[2023-10-19] MEDS: METOPROLOL TARTRATE 50MG TABLET PO ×2 (12:58→13:46)
[2023-10-19 13:32] VITALS: PULSE 84
[2023-10-19 13:44] VITALS: PULSE 68
[2023-10-19 14:20] VITALS: BP 125/90; PULSE 64; RESP 18; O2SAT 95
[2023-10-19 14:22] VITALS: BP 98/62; PULSE 68
[2023-10-19 14:33] VITALS: PULSE 58
[2023-10-19] MEDS: 0.9 % SODIUM CHLORIDE 50 ML VIAL IV (14:42)
[2023-10-19] MEDS: IOPAMIDOL-370 (76%);100ML BOTTLE 85 ML IV (14:42)
[2023-10-19] MEDS: SODIUM CHLORIDE 0.9% 10ML SYR (RAD ONLY) 10 ML IV (14:42)
[2023-10-19] MEDS: NITROGLYCERIN 0.4MG SL TABLET SL (14:44)
[2023-10-19] MEDS: METOPROLOL TARTRATE 5MG/5ML VIAL 5 MG IV (14:45)
== END 2023-10-19 14:59 | disposition home or self-care (01) ==
PROVIDERS: PCP Nurse Practitioner Family; Visit Provider Internal Medicine
DX: R06.00 Dyspnea, unspecified (principal); R07.9 Chest pain, unspecified; R00.0 Tachycardia, unspecified; R00.2 Palpitations; Z22.1 Carrier of other intestinal infectious diseases; R51.9 Headache, unspecified; Z98.51 Tubal ligation status; Z72.0 Tobacco use; Z90.710 Acquired absence of both cervix and uterus
CPT/HCPCS: 75574; Q9967

== ENCOUNTER 2023-11-09 14:49 | Outpatient (CLI) | payer MEDICAID, SELFPAY ==
--- NOTE | 2023-11-09 14:50 | CT_ITS ---
FINAL REPORT TECHNIQUE: Thin section axial CT images with coronal and sagittal reformats were performed through the neck. This study was performed with techniques to keep radiation doses as low as reasonably achievable (ALARA). Individualized dose reduction techniques using automated exposure control or adjustment of mA and/or kV according to the patient''s size were employed. CLINICAL HISTORY: unilateral hypertrophy of tonsils--right side COMPARISON: None FINDINGS: Exam is less sensitive without IV contrast. The tonsillar pillars appear relatively symmetric by CT scan. The right tonsillar pillar measures 15 mm in thickness in the left measures 14 mm. The salivary glands are unremarkable. The vocal cords are symmetric. The thyroid gland is unremarkable. IMPRESSION: Unremarkable exam. Reviewed, Interpreted and Dictated by Mehreen Figueroa MD Transcribed by Shelbie Taylor Authenticated and [facility]
== END 2023-11-09 23:59 | disposition home or self-care (01) ==
LOC: RAD 14:50
PROVIDERS: PCP Nurse Practitioner Family; Visit Provider Nurse Practitioner
DX: J35.1 Hypertrophy of tonsils (principal)
CPT/HCPCS: 70490

== ENCOUNTER 2024-04-08 15:23 | Emergency (ER) | payer MEDICAID, SELFPAY ==
[2024-04-08 15:36] VITALS: BP 139/95; PULSE 90; RESP 18; TEMP 36.7; O2SAT 99; BMI 26.6
[2024-04-08 15:36] LABS: Apearance,Urine Clear (Clear); Bilirubin,Urine Negative (Negative); Blood, Urine 3+ (Negative); Color,Urine Yellow (Yellow); Glucose,Urine (UA) Negative (Negative); Ketones,Urine Negative (Negative); PH,Urine 6.5 (5.0-8.5); Protein,Urine Negative (Negative); UTC Leukocyte Esterase,Urine 3+ (Negative); Urobilinogen,Urine 0.2 EU/dl (0.2)
[2024-04-08 15:37] LABS: UTC Nitrate,Urine Negative (Negative)
--- NOTE | 2024-04-08 15:52 | EXP.UTC ---
Discharge Plan Disposition Patient Disposition: Home, Self-Care Condition: Good Prescriptions Prescriptions: New fluconazole 150 mg tablet 150 mg PO ONCE Qty: 1 3RF phenazopyridine [Pyridium] 200 mg tablet 200 mg PO Q8H 2 Days Qty: 6 0RF nitrofurantoin monohyd/m-cryst [Macrobid] 100 mg Capsule 100 mg PO BID Qty: 10 0RF Rx Instructions: must administer with a meal/food Referrals Follow up/Referrals: Rafael Campos APRN [Primary Care Provider] - See instructions Activity Restrictions/Add. Instructions Additional Instructions/Restrictions: Drink plenty of fluids. Take tylenol or ibuprofen for pain or fever. Take the medications as directed. Follow up with your regular doctor. GO TO THE ER FOR ANY WORSENING SYMPTOMS The pyridium will make your urine turn orange, this is an expected side effect. It will stain your clothes if it comes into contact with them. We will culture the urine. That will tell what bacteria is causing your infection and which antibiotics will treat it best.This test takes 3 days to complete. Clinical Impressions Clinical Impression: UTI (urinary tract infection) Instructions Patient Instructions: Urinary Tract Infection, DI for Urinary Tract Infection (UTI) Print Language Print Language: Austrian Discharge ED Provider: Juan Roberts [facility] HPI General Stated complaint: possible uti Mode of Arrival: Ambulatory Source of Information: Patient Limitations: No Limitations Time Seen by Provider: 04/08/24 15:52 Description of Symptoms (Recalled from Triage Doc. by RN): PT REPORTS BURNING AND PRESSURE WITH URINATION THAT STARTED LATE LAST NIGHT HEENT Symptoms (Recalled from RN notes): No Resp Symptoms (Recalled from RN notes): No Skin Symptoms (Recalled from RN notes): No MS Symptoms (Recalled from RN notes): No Functional Status (Recalled from RN notes): WNL Related Data Previous Rx's ?Medication ?Instructions ?Recorded fluconazole 150 mg tablet 150 mg PO ONCE 1 dose #1 tab 04/08/24 nitrofurantoin 100 mg PO BID #10 caps 04/08/24 monohydrate/macrocrystals 100 mg capsule (Macrobid) phenazopyridine 200 mg tablet 200 mg PO Q8H 2 days #6 tabs 04/08/24 (Pyridium) Allergies Allergy/AdvReac Type Severity Reaction Status Date / Time No Known Drug Allergies Allergy Unknown Verified 11/11/23 15:17 Worker's Comp Is this a Worker's Comp case?: No Is this an [facility] Worker's Comp?: No [facility] Disclaimer: The information contained in this section may have been updated after the patient was seen, as this information can be updated by other users. Medical History Inappropriate sinus tachycardia Hoarseness Lymphadenopathy Tonsillar hypertrophy, unilateral Hypertrophy of tonsils Acute recurrent maxillary sinusitis Clostridium difficile carrier Strep throat Insomnia Posttraumatic stress disorder Panic disorder Tail bone pain Anxiety and depression Acute blood loss anemia Postoperative bleeding from incision Pelvic adhesions Severe dysmenorrhea Migraine Lupus DUB (dysfunctional uterine bleeding) Surgical History History of hysterectomy S/P hysterectomy History of tubal ligation History of section Family History Other No significant family history Social History Smoking Status: Never smoker second hand exposure: Yes alcohol intake: never substance use type: denies use current occupational status: employed household members: spouse and family housing: house number of children: 2 current occupation: [employer] current occupational exposures/hazards: No caffeine: Yes ROS Obtained: Yes All systems reviewed & no additional complaints except as documented Constitutional Constitutional: Reports system reviewed and no additional complaints, except as documented, Denies chills and Denies fever(s) Eyes Eyes: Denies eye discharge ENT Ears, Nose, Mouth, and Throat: Denies dysphagia, Denies sore throat and Denies throat swelling Cardiovascular Cardiovascular: Denies chest pain and Denies dyspnea Respiratory Respiratory: Denies chest congestion, Denies cough and Denies dyspnea Gastrointestinal Gastrointestingal: Denies abdominal pain, constipation, diarrhea, dysphagia, nausea or vomiting Genitourinary Female Genitourinary: Reports as per HPI, Reports dysuria, Reports sexual dysfunction, Reports urinary frequency, Denies urinary incontinence and Reports urinary hesitancy Musculoskeletal Musculoskeletal: Denies arthralgias and Reports back pain Integumentary/Breasts Skin/Breast: Denies rash Neurologic Neurologic: Denies paresthesias Allergic/Immunologic Allergic/Immunologic: Denies throat swelling Physical Exam General General appearance: alert and in no apparent distress Head Head exam: atraumatic and normocephalic Eye Eye exam: Present normal appearance, PERRL and EOMI ENT ENT exam: Present normal exam, mucous membranes moist, TM's normal bilaterally and normal external ear exam Neck Neck exam: Present normal inspection, full ROM and trachea midline; Absent tenderness, meningismus or lymphadenopathy Chest Chest inspection: Present normal inspection and symmetric chest wall rise; Absent tenderness Respiratory Respiratory exam: Present normal lung sounds bilaterally; Absent respiratory distress, wheezes or stridor Cardiovascular Cardiovascular exam: Present regular rate, normal rhythm and normal heart sounds Abdominal Exam Abdominal exam: Present soft and normal bowel sounds; Absent distention, tenderness, guarding, rebound, rigidity, incision, psoas sign, obturator sign, heel tap sign, Flores's sign, Rovsing's sign or tenderness at McBurney's Point Extremities Exam Extremities exam: Present normal inspection, full ROM and normal capillary refill; Absent tenderness, edema, joint swelling, calf tenderness or cyanosis Back Exam Back exam: Present normal inspection and full ROM; Absent tenderness, CVA tenderness (R) or CVA tenderness (L) Neurological Exam Neurological exam: Present alert, oriented X3 and normal gait Psychiatric Psychiatric exam: Present normal affect and normal mood Skin Skin exam: Present warm, dry, intact and normal color Lymphatic Lymphatic Findings: no adenopathy Medical Decision Making Medical Records Medical records reviewed: No I reviewed the patient's medical records. Screening: Per USPSTF and CDC recommendations, given the prevalence of disease in our region, it is our hospital?s policy to screen for HIV and viral Hepatitis for all patients aged 18 and over and those with ongoing risk factors. Sim Inquiry Pt receiving controlled substance: No Vital Signs: 04/08/24 15:36 Temperature 98.1 F Temperature Source Oral Pulse Rate [Radial] 90 Respiratory Rate 18 Blood Pressure [Right Arm] 139/95 H Blood Pressure Mean [Right Arm] 109 Blood Pressure Source [Right Arm] Automatic Cuff Blood Pressure Position [Right Arm] Sitting 02 Sat by Pulse Oximetry 99 Oxygen Delivery Method Room Air Lab Data Lab results reviewed: Yes I reviewed the patient's lab results. Lab Results 04/08/24 15:33: Urine Color Yellow, Urine Appearance Clear, Urine pH 6.5, Ur Specific [place] 1.010, Urine Protein Negative, Urine Glucose (UA) Negative, Urine Ketones Negative, Urine Blood 3+, Urine Nitrate Negative, Urine Bilirubin Negative, Urine Urobilinogen 0.2, Ur Leukocyte Esterase 3+ A Orders (Tests/Meds): ORDERS Category Date Time Status Urine Culture Stat Micro 04/08/24 15:25 Received
[2024-04-08] MEDS: LIDOCAINE 1% 5ML PF VIAL IM (16:14)
[2024-04-08] MEDS: cefTRIAXone 1GM VIAL 1 GM IM (16:14)
[2024-04-08 16:30] VITALS: BP 139/95; PULSE 90; RESP 18; TEMP 36.7; O2SAT 99
== END 2024-04-08 16:34 | disposition home or self-care (01) ==
PROVIDERS: Emergency Provider Nurse Practitioner Family; PCP Nurse Practitioner Family
DX: N39.0 Urinary tract infection, site not specified (principal)
CPT/HCPCS: 81003; 87086; 87088; 87186; 96372; 99213; G0381; J0696

== ENCOUNTER 2024-04-25 11:17 | Outpatient (CLI) | payer MEDICAID, SELFPAY ==
[2024-04-25 11:23] LABS: Adenovirus F 40/41, stool Not Detected (NotDetected); Astrovirus Not Detected (NotDetected); Campylobacter Not Detected (NotDetected); Clostridium Difficile A/B, PCR Not Detected (NotDetected); Cryptosporidium Not Detected (NotDetected); Cyclospora Cayetanesis Not Detected (NotDetected); Entamoeba histolytica Not Detected (NotDetected); Enteroaggregative E coli Not Detected (NotDetected); Enteropathogenic E coli Not Detected (NotDetected); Enterotoxigenic E coli Not Detected (NotDetected); Giardia lamblia Not Detected (NotDetected); Norovirus Not Detected (NotDetected); Plesimonas Shigalloides, PCR Not Detected (NotDetected); Rotavirus A Not Detected (NotDetected); Salmonella, PCR Not Detected (NotDetected); Sapovirus Not Detected (NotDetected); Shiga-like toxin E coli Not Detected (NotDetected); Shigella Enterovasive E coli Not Detected (NotDetected); Vibrio Cholerae Not Detected (NotDetected); Vibrio, PCR Not Detected (NotDetected); Yersinia Entercolitica, PCR Not Detected (NotDetected)
== END 2024-04-25 23:59 | disposition home or self-care (01) ==
LOC: LAB 11:17
PROVIDERS: PCP Nurse Practitioner Family; Visit Provider Family Medicine
DX: R19.8 Other specified symptoms and signs involving the digestive system and abdomen (principal); R19.7 Diarrhea, unspecified; R19.5 Other fecal abnormalities
CPT/HCPCS: 87506

== ENCOUNTER 2024-06-04 16:04 | Emergency (ER) | payer MEDICAID, SELFPAY ==
[2024-06-04 16:44] VITALS: BP 121/88; PULSE 103; RESP 16; TEMP 36.9; O2SAT 98; BMI 24.2
--- NOTE | 2024-06-04 16:59 | ED_ITS ---
Discharge Plan Disposition Patient Disposition: Home, Self-Care Condition: Good Prescriptions Prescriptions: New azithromycin [Zithromax] 250 mg tablet 250 mg PO UD DOSE PK Qty: 6 0RF Rx Instructions: Take two (2) tablets today, then one (1) tablet days #2 thru #5 fluconazole 150 mg tablet 150 mg PO ONCE Qty: 1 3RF benzonatate 100 mg capsule 100 mg PO TIDP PRN (Reason: Cough) Qty: 30 0RF methylprednisolone 4 mg Tablets,Dose Pack 4 mg PO DIRECTED 6 Days Qty: 21 0RF Rx Instructions: Take 1 pack as directed for 6 days No Action pyridoxine (vitamin B6) 200 mg tablet extended release 200 mg PO DAILY Rx Instructions: 1 tablet once a day colestipol 1 gram tablet 1 g PO BID Qty: 60 5RF dicyclomine 10 mg capsule 10 mg PO QID Qty: 120 2RF Referrals Follow up/Referrals: Rafael Campos APRN [Primary Care Provider] - See instructions Activity Restrictions/Add. Instructions Additional Instructions/Restrictions: Drink plenty of fluids. Take tylenol or ibuprofen for pain or fever. Take the medications as directed. Follow up with your regular doctor. GO TO THE ER FOR ANY WORSENING SYMPTOMS Eat yogurt 2 or 3 times per day while you are on the antibiotic. I also recommend taking a probiotic for the next 1 month or so. Ask your pharmacist which one they would recommend for you to purchase and to take. Clinical Impressions Clinical Impression: Sinusitis Instructions Patient Instructions: Sinusitis, DI for Sinusitis Print Language Print Language: Azeri Discharge ED Provider: Juan Roberts [facility] [place] General Stated complaint: congestion,headache,runny nose Mode of Arrival: Ambulatory Source of Information: Patient Time Seen by Provider: 06/04/24 16:56 Description of Symptoms (Recalled from Triage Doc. by RN): SINUS INFECTION? HEENT Symptoms (Recalled from RN notes): Yes Resp Symptoms (Recalled from RN notes): No Skin Symptoms (Recalled from RN notes): No MS Symptoms (Recalled from RN notes): No Functional Status (Recalled from RN notes): WNL Related Data Home Medications ?Medication ?Instructions ?Recorded ?Confirmed pyridoxine (vitamin B6) 200 mg 200 mg PO DAILY 05/01/24 06/04/24 tablet,extended release Previous Rx's ?Medication ?Instructions ?Recorded colestipol 1 gram tablet 1 g PO BID #60 tabs 05/30/24 dicyclomine 10 mg capsule 10 mg PO QID #120 caps 05/30/24 azithromycin 250 mg tablet 250 mg PO UD DOSE PK #6 tabs 06/04/24 (Zithromax) benzonatate 100 mg capsule 100 mg PO TIDP PRN Cough #30 caps 06/04/24 fluconazole 150 mg tablet 150 mg PO ONCE 1 dose #1 tab 06/04/24 methylprednisolone 4 mg tablets in 4 mg PO DIRECTED 6 days #21 tabs 06/04/24 a dose pack Allergies Allergy/AdvReac Type Severity Reaction Status Date / Time No Known Drug Allergies Allergy Unknown Verified 05/01/24 14:40 Worker's Comp Is this a Worker's Comp case?: No [facility] Disclaimer: The information contained in this section may have been updated after the patient was seen, as this information can be updated by other users. Medical History Inappropriate sinus tachycardia Hoarseness Lymphadenopathy Tonsillar hypertrophy, unilateral Hypertrophy of tonsils Acute recurrent maxillary sinusitis Clostridium difficile carrier Strep throat Insomnia Posttraumatic stress disorder Panic disorder Tail bone pain Anxiety and depression Acute blood loss anemia Postoperative bleeding from incision Pelvic adhesions Severe dysmenorrhea Migraine Lupus DUB (dysfunctional uterine bleeding) Surgical History History of hysterectomy S/P hysterectomy History of tubal ligation History of section Family History Other No significant family history Social History Smoking Status: Never smoker second hand exposure: Yes alcohol intake: never substance use type: denies use current occupational status: employed Travel in the last 8 weeks: None household members: spouse and family housing: house number of children: 2 current occupation: [employer] current occupational exposures/hazards: No caffeine: Yes Have you lived/traveled outside [place] in past 30 days?: No Contact w/someone who lives/traveled outside [place] past 30 days?: No Exposure to someone with infectious disease in past 14 days?: No Do you have a fever (greater than 100.4 F or 38 C)?: No Have you tested positive for COVID-19: No Exposed to someone with COVID-19 in past 14 days?: No Do you have a sore throat?: No Do you have a cough?: Yes Do you have any weakness?: No Do you have any diarrhea?: No Are you experiencing any unusual bleeding?: No Do you have any muscle aches/pain?: No Do you have any abdominal pain?: No Are you experiencing loss of taste or smell?: No ROS Obtained: Yes All systems reviewed & no additional complaints except as documented Constitutional Constitutional: Reports poor appetite Eyes Eyes: Reports system reviewed and no additional complaints, except as documented ENT Ears, Nose, Mouth, and Throat: Reports as per HPI Cardiovascular Cardiovascular: Reports system reviewed and no additional complaints, except as documented and Denies chest pain Respiratory Respiratory: Denies shortness of breath, Reports chest congestion, Reports cough, Denies stridor and Denies wheezing Gastrointestinal Gastrointestingal: Reports system reviewed and no additional complaints, except as documented; Denies abdominal pain, diarrhea or vomiting Musculoskeletal Musculoskeletal: Reports system reviewed and no additional complaints, except as documented and Denies arthralgias Integumentary/Breasts Skin/Breast: Reports system reviewed and no additional complaints, except as documented and Denies rash Neurologic Neurologic: Denies paresthesias Allergic/Immunologic Allergic/Immunologic: Denies wheezing Physical Exam General General appearance: alert and in no apparent distress Eye Eye exam: Present normal appearance, PERRL and EOMI ENT ENT exam: Present mucous membranes moist and normal external ear exam Expanded ENT Exam External ear exam: Present normal external inspection TM/Canal exam: Bilateral TM: erythema and bulging Nose exam: Absent sinus tenderness Nasal speculum exam: Bilateral: normal Mouth exam: Present normal external inspection; Absent drooling Teeth exam: Present normal inspection Throat exam: Present tonsillar erythema and tonsillomegaly Neck Neck exam: Present normal inspection, full ROM and trachea midline; Absent tenderness, lymphadenopathy or thyromegaly Chest Chest inspection: Present normal inspection and symmetric chest wall rise; Absent tenderness or rash Respiratory Respiratory exam: Present normal lung sounds bilaterally; Absent respiratory distress, wheezes, stridor or accessory muscle use Cardiovascular Cardiovascular exam: Present regular rate, normal rhythm and normal heart sounds Abdominal Exam Abdominal exam: Present soft; Absent distention, tenderness, guarding, rebound or rigidity Extremities Exam Extremities exam: Present normal inspection, full ROM and normal capillary refill; Absent tenderness or calf tenderness Back Exam Back exam: Present normal inspection and full ROM; Absent tenderness Neurological Exam Neurological exam: Present alert and oriented X3 Psychiatric Psychiatric exam: Present normal affect and normal mood Skin Skin exam: Present warm, dry, intact and normal color Lymphatic Lymphatic Findings: no adenopathy Medical Decision Making Medical Records Medical records reviewed: No I reviewed the patient's medical records. Screening: Per USPSTF and CDC recommendations, given the prevalence of disease in our region, it is our hospital?s policy to screen for HIV and viral Hepatitis for all patients aged 18 and over and those with ongoing risk factors. Sim Inquiry Pt receiving controlled substance: No Vital Signs: 06/04/24 16:44 Temperature 98.4 F Temperature Source Oral Pulse Rate [Left Radial] 103 H Respiratory Rate 16 Blood Pressure [Left Arm] 121/88 Blood Pressure Mean [Left Arm] 99 02 Sat by Pulse Oximetry 98 Lab Data Lab results reviewed: Yes I reviewed the patient's lab results.
[2024-06-04 17:27] VITALS: BP 121/88; PULSE 103; RESP 16; TEMP 36.9
[2024-06-04] MEDS: cefTRIAXone 1GM VIAL 1 GM IM (17:32)
[2024-06-04] MEDS: DEXAMETHASONE 4MG/ML 1ML VIAL 8 MG IM (17:32)
[2024-06-04] MEDS: LIDOCAINE 1% 5ML PF VIAL IM (17:33)
== END 2024-06-04 17:47 | disposition home or self-care (01) ==
PROVIDERS: Emergency Provider Nurse Practitioner Family; PCP Nurse Practitioner Family
DX: J32.9 Chronic sinusitis, unspecified (principal)
CPT/HCPCS: 99213; G0381; J0696; J1100

== ENCOUNTER 2024-10-27 12:32 | Outpatient (CLI) | payer MEDICAID, SELFPAY ==
--- OUTSIDE RECORDS SUMMARY | 2024-10-27 12:35 | XMS_ITS | Data Portability ---
Author Organization LAQUITA ROC Santiago [facility] Address [address] [place] [address] Assessment Encounter Date Assessment Date Assessment LastModified by Organization Details LastModified Time 04/29/2021 04/29/2021 check gi pcr and calprotecin mashmun Not available 04/29/2021 16:22:33 Plan of Treatment Reminders Order Date Submit Date Provider Last Modified By Organization Details Last Modified Time Details Appointments None recorded. Lab vitamin D, 25-hydrox y, total, serum 2023 [facility], [address] [place] [address], [id number], 4 17:09:17 ccp (cyclic citrullin ated peptide) iga+igg, serum 2023 [facility], [address] [place] [address], [id number], 15:20:10 rf (rheumato id factor), serum 2023 [facility], [address] [place] [address], [id number], 4 17:44:24 C reactive protein, QN, serum or plasma 2023 024 [facility], [address] [place] [address], [id number], 4 17:44:22 uric acid, serum or plasma 2023 024 [facility], [address] [place] [address], [id number], 4 17:44:21 ESR (erythroc yte sedimenta tion rate), blood 2023 024 [facility], [address] [place] [address], [id number], 4 19:11:43 JAIME (antinucl ear antibodie s) panel, serum 2023 024 [facility], [address] [place] [address], [id number], 4 08:04:08 thyroid panel, serum 2023 024 [facility], [address] [place] [address], [id number], 4 18:31:21 T4, free, serum 2023 024 [facility], [address] [place] [address], [id number], 4 16:58:31 TSH, serum or plasma 2023 024 [facility], [address] [place] [address], [id number], 4 16:58:35 T3, free, serum or plasma 2023 024 [facility], [address] [place] [address], [id number], 4 16:58:33 immunoglo bulins iga+igg+i gm, quantitat michael, serum 2023 024 [facility], [address] [place] [address], [id number], 4 17:44:19 hepatitis (A+B+C) panel, serum 2023 [facility], [address], [place], [address], 4 17:00:[address] referral - with headaches , muscle pain, muscle spasm, signs of POTs with normal cardiac work up; loses balance; family history of MS 2023 DORINA Betancur MD, [address] , [facility] [address], [place], [address], 4 10:15:32 Procedures None recorded. Surgeries None recorded. Imaging None recorded. Medication Orders prednison e 5 mg tablet 2023 024 [facility] #[id number], [address], [id number], 4 09:36:56 cholestyr amine (with sugar) 4 gram oral powder [address] [facility] #[id number], [address], [id number], 4 14:20:35 Florastor 250 mg capsule [address] [facility], [address], [id number], 4 14:20:45 Dificid 200 mg tablet 2020 021 [facility] #81049, [address], [id number], 1 15:53:42 Patient TargetsNo targets recorded. Patient InstructionsNo instructions recorded. Reason for Referral Neurologist Referral for Debra ble to balance with headaches, muscle pain, muscle spasm, signs of POTs with normal cardiac work up; loses balance; family history of MS Referring Physician: Nancy Mohamud, Rheumatology, Encounter Date: 12/02/2023 Results Created Date Observation Date Name Description Value Unit Range Abnormal Flag Note LastModifiedBy Organization Detail LastModifiedTime 11/01/19 24 11/01/2023 T4,FR EE T4,free 1.32 NG/dL 0.93-1 .70 normal Not Available [facility] [address] [place] [address], [id number], 11/01/2023 16:58:31 11/01/19 24 11/01/2023 T3 FREE T3 free 3.46 pg/mL 2.00-4 .40 normal Not Available [facility] [address] [place] [address], [address], 11/01/2023 16:58:33 11/01/19 24 11/01/2023 TSH TSH 0.687 u[IU] /mL 0.270- 4.200 normal Not Available [facility] [address] [place] [address], [id number], 11/01/2023 16:58:35 11/01/19 24 11/01/2023 HEPAT ITIS PANEL hepatitis A Ab, IgM NONREA CTIVE nonrea ctive normal Not Available [facility] [address] [place] [address], [id number], 11/01/2023 17:00:21 11/01/19 24 11/01/2023 HEPAT ITIS PANEL hepatitis B surface Ag NONREA CTIVE nonrea ctive normal Not Available [facility] [address] [place] [address], [address], 11/01/2023 17:00:21 11/01/19 24 11/01/2023 HEPAT ITIS PANEL hepatitis B core Ab,IgM NONREA CTIVE nonrea ctive normal Not Available [facility] [address] [place] [address], [id number], 11/01/2023 17:00:21 11/01/19 24 11/01/2023 HEPAT ITIS PANEL hcab, reflex viral RNA qt NONREA CTIVE nonrea ctive normal Antib odies to HCV were not detec josé; does not exclu de the possi bilit y of expos ure to HCV. Not Available [facility] [address] [place] [address], [id number], 11/01/2023 17:00:21 11/01/19 24 11/01/2023 VITAM IN D 25-OH vitamin D 25-oh, total 31 NG/mL >=30 NG/mL normal Not Available [facility] [address] [place] [address], [address], 11/01/2023 17:09:17 11/01/19 24 11/01/2023 QUANT . IMMUN OGLOB ULINS IgG 1164 mg/dL 700-16 00 normal Not Available [facility] [address] [place] [address], [address], 11/01/2023 17:44:19 11/01/19 24 11/01/2023 QUANT . IMMUN OGLOB ULINS IgA 189 mg/dL 70-400 normal Not Available [facility] [address] [place] [address], [address], 11/01/2023 17:44:19 11/01/19 24 11/01/2023 QUANT . IMMUN OGLOB ULINS IgM 243 mg/dL 40-230 high Not Available [facility] [address] [place] [address], [address], 11/01/2023 17:44:19 11/01/19 24 11/01/2023 URIC ACID uric acid 6.4 mg/dL 2.4-5. 7 high Refer ence range s are based on popul ation norms and do not neces arsalan y corre late with treat ment targe ts. In patie nts with an estab lishe d diagn osis of gout under going Urate Lower ing Thera py (ULT) , the 2011 [facility] Rheum atolo gy Guid mara s for Manag ement of Gout recom mend a targe t uric acid level of < 6 mg/dL in all patie nts, or lower in certa in circu mstan jaziel. [facility] [place] Vol 64 No 10, 2011 [facility] ge of Rheum atolo gy ----- ----- ----- ----- ----- ----- ----- ----- ----- ----- ----- ---- Not Available [facility] [address] [place] [address], [id number], 11/01/2023 17:44:21 11/01/19 24 11/01/2023 C REACT MICHAEL PROTE IN C reactive protein 0.66 mg/dL 0.00-0 .49 high Not Available [facility] [address] [place] [address], [address], 11/01/2023 17:44:22 11/01/19 24 11/01/2023 RF SCREE N, QUANT . rf screen, quant. <10.0 [IU]/ mL 0.0-13 .9 normal Not Available [facility] [address] [place] [address], [address], 11/01/2023 17:44:24 11/01/19 24 11/01/2023 ESR, AUTOM ATED ESR, automated 19 mm 0-19 normal Not Available [facility] [address] [place] [address], [address], 11/01/2023 19:11:43 11/01/19 24 11/02/2023 THYRO ID ANTIB ODIES PANEL thyroid peroxidase Ab <1 IU/mL <9 normal Not Available [facility] [address] [place] [address], [address], 11/02/2023 18:31:21 11/01/19 24 11/02/2023 THYRO ID ANTIB ODIES PANEL thyroglobuli n Ab <1 IU/mL < or = 1 normal Not Available [facility] [address] [place], [address], 11/02/2023 18:31:21 11/01/19 24 11/04/2023 JAIME REFLE X COMME NT JAIME reflex comment see below normal REFLE X TESTI NG IN PROGR ESS INCLU KAY: Anti- DNA (ds) Ab, SM/RN P Abs, SS-A/ SS-B Abs, and Scler oderm a Ab Testi ng could take up to 7 days to compl ete. Not Available [facility] [address] [place], [address], 11/04/2023 08:03:58 11/01/19 24 11/04/2023 JAIME W/ REFLE X JAIME screen POSITI VE negati ve abnormal JAIME IFA is a first line scree n for detec ting the prese nce of up to appro ximat marc 150 autoa ntibo dies in vario us autoi mmune disea ses. A posit michael JAIME IFA resul t is sugge stive of autoi mmune disea se and refle xes to titer and patte rn. Furth er labor atory testi ng may be consi dered if clini norah indic ated. For addit ional infor katerine mesa e refer to http: //[facility] tiffany beckman.Que stDia gnost ics.c om/fa q/FAQ 177 (This link is being provi ded for infor rosario ramirez/ educa fartun l purpo ses only. ) Not Available [facility] [address] [place], [address], 11/04/2023 08:04:08 11/01/19 24 11/04/2023 JAIME W/ REFLE X JAIME titer 1:40 titer high A low level JAIME titer may be prese nt in pre-c linic al autoi mmune disea ses and twan l indiv idual s. Refer ence Range <1:40 Negat michael 1:40- 1:80 Low Antib jason Level >1:80 Page josé Antib jason Level Not Available [facility] [address] [place] [address], [id number], 11/04/2023 08:04:08 11/01/19 24 11/04/2023 JAIME W/ REFLE X JAIME pattern SEE BELOW abnormal Mitot ic, Spind le Fiber s The spind le fiber s betwe en the poles are stain ed in mitot ic cells , assoc iated with cone- shape d decor ation of the mitot ic poles . The patte rn is rare in Sjogr en's syndr ome, syste betsey lupus eryth emato manuel (SLE) , and other conne ctive tissu e disea ses. AC-25 : Spind le Fiber s Inter natio nal Conse nsus on JAIME Patte rns (http s://d oi.or g/10. 1515/ [facility]- 2017- 0052) Not Available [facility] [address] [place] [address], [address], 11/04/2023 08:04:08 11/01/19 24 11/04/2023 JAIME REFLE X TESTI NG sm antibody <1.0 NEG ai <1.0 neg normal Not Available [facility] [address] [place] [address], [id number], 11/04/2023 13:53:54 11/01/19 24 11/04/2023 JAIME REFLE X TESTI NG sm/sugar laboratory assistant Ab <1.0 NEG ai <1.0 neg normal Not Available [facility] [address] [place] [address], [address], 11/04/2023 13:53:54 11/01/19 24 11/04/2023 JAIME REFLE X TESTI NG ss-A Ab <1.0 NEG ai <1.0 neg normal Not Available [facility] [address] [place] [address], [address], 11/04/2023 13:53:54 11/01/19 24 11/04/2023 JAIME REFLE X TESTI NG ss-B Ab <1.0 NEG ai <1.0 neg normal Not Available [facility] [address] [place] [address], [id number], 11/04/2023 13:53:54 11/01/19 24 11/04/2023 JAIME REFLE X TESTI NG scleroderma Ab <1.0 NEG ai <1.0 neg normal Not Available [facility] [address] [place] [address], [address], 11/04/2023 13:53:54 11/01/19 24 11/04/2023 ANTI- CCP anti-ccp <16 units normal Refer ence Range Negat michael: <20 Weak Posit michael: 20-39 Moder ate Posit michael: 40-59 Stron g Posit michael: >59 Not Available [facility] [address] [place] [address], [address], 11/04/2023 15:20:10 11/01/19 24 11/04/2023 JAIME REFLE X TESTI NG sm antibody <1.0 NEG ai <1.0 neg normal Not Available [facility] [address] [place] [address], [address], 11/12/2023 17:03:51 11/01/19 24 11/04/2023 JAIME REFLE X TESTI NG sm/sugar laboratory assistant Ab <1.0 NEG ai <1.0 neg normal Not Available [facility] [address] [place] [address], [address], 11/12/2023 17:03:51 11/01/19 24 11/04/2023 JAIME REFLE X TESTI NG ss-A Ab <1.0 NEG ai <1.0 neg normal Not Available [facility] [address] [place] [address], [address], 11/12/2023 17:03:51 11/01/19 24 11/04/2023 JAIME REFLE X TESTI NG ss-B Ab <1.0 NEG ai <1.0 neg normal Not Available [facility] [address] [place] [address], [address], 11/12/2023 17:03:51 11/01/19 24 11/04/2023 JAIME REFLE X TESTI NG scleroderma Ab <1.0 NEG ai <1.0 neg normal Not Available [facility] [address] [place], [address], 11/12/2023 17:03:51 11/01/19 24 11/12/2023 JAIME REFLE X TESTI NG DNA (ds) Ab NEGATI VE negati ve normal Not Available [facility] [address] [place], [address], 11/12/2023 17:03:51 Result Notes None recorded. Procedures Surgical History Date Name Laterality Status Provider Name and Address Organization Details Recorded Time 05/24/19 hysterectomy completed Shelbie Almeida [facility] 04/02/2021 14:38:43 02/02/20 section completed [facility] 11/01/2023 14:23:15 fecal microbiota transplantation completed [facility] 11/01/2023 14:22:57 Imaging Results None recorded. Procedure Notes None recorded. Medical Equipment None Reported. Allergies No known drug allergies Medications Name Sig Start Date Stop Date Status Note LastModified by Organization Details LastModified Time cyclobenzapri ne 10 mg tablet Take 1 tablet as needed by oral route. active Not Available Not Available No t Available mirtazapine 30 mg tablet Take 1 tablet every day by oral route. active pt no longer taking Not Available Not Available Not Available diazepam 10 mg tablet Take 1 tablet 3 times a day by oral route as needed. active pt no longer taking Not Available Not Available Not Available cholestyramin e (with sugar) 4 gram oral powder Take 1 scoop twice a day by oral route. 2021 active pt no longer taking Not Available Not Available Not Available Florastor 250 mg capsule Take 1 capsule twice a day by oral route for 30 days. 2020 active pt no longer taking Not Available Not Available Not Available Dificid 200 mg tablet Take 1 tablet every 12 hours by oral route for 10 days. 2020 active pt no longer taking Not Available Not Available Not Available Vitals Date Recorded Body weight Heart rate Oxygen saturation Oxygen saturation in Arterial blood by Pulse oximetry Systolic blood pressure Diastolic blood pressure Provider Name and Address Organization Details Last Updated DateTime 4 83337.1 5 g 92 /min 95 % 95 % 120 mm[Hg] 88 mm[Hg] Marcy Marx [facility] 4 14:25:12 Date Recorded Body weight Heart rate Oxygen saturation Oxygen saturation in Arterial blood by Pulse oximetry Systolic blood pressure Diastolic blood pressure Provider Name and Address Organization Details Last Updated DateTime 4 14118.5 6 g 110 /min 99 % 99 % 110 mm[Hg] 70 mm[Hg] Marcydemi Marx [facility] 4 09:18:26 Date Recorded Body height Body mass index (BMI) Body weight Heart rate Systolic blood pressure Diastolic blood pressure Provider Name and Address Organization Details Last Updated DateTime 1 167.64 cm 26 kg/m2 70740.3 7 g 122 /min 117 mm[Hg] 79 mm[Hg] Shelbie Almeida [facility] 1 14:36:50 Social History Question Answer Notes LastModified by Organizat ion Details LastModified Time Tobacco Smoking Status Former Smoker quit smoking November 2022 Marcydemi Marx [facility] 11/01/2023 14:22:02 What Was The Date Of Your Most Recent Tobacco Screening? 12/02/2023 Information not available 12/02/2023 What Is Your Relationship Status? Information not available 04/02/2021 How Much Tobacco Do You Smoke? 1 PPD Information not available 04/02/2021 How Many Years Have You Smoked Tobacco? 21 Information not available 04/02/2021 Sex: Unknown Functional Status Question Answer Note LastModified by Organizat ion Details LastModified Time Do you use any illicit or recreational drugs? No Information not available 04/02/2021 What is your level of alcohol consumption? None Information not available 11/01/2023 Mental Status None recorded. Family History Relationship Description Onset Age of this Age Resolved Age Notes LastModified by Organization Details LastModified Time Unspecified Relation Diabetes mellitus Not available 2020 14:37:27 Unspecified Relation Pulmonary emphysema Not available 2020 14:37:34 Unspecified Relation Heart disease Not available 2020 14:37:42 Unspecified Relation Hypercholest erolemia Not available 2020 14:37:48 Unspecified Relation Hypothyroidi sm Not available 2020 14:37:56 Unspecified Relation Mental handicap Not available 2020 14:38:04 Unspecified Relation Cerebrovascu lar accident Not available 02/2021 14:38:09 Medical History Condition Response Blood Transfusion Y Depression Y Anxiety Disorder Y Arthritis Y Acid Reflux (GERD) Y Cancer Y Headaches Y Difficulty Swallowing Y GI Problems Y Gynecological HistoryNo gynecological history recorded. Obstetrics History GPAL:G 0 P 0 0 0 0 Past Encounters Encounter ID Performer Location Encounter Start Date Encounter Closed Date Diagnosis/Indication Diagnosis SNOMED-CT Code Diagnosis ICD10 Code Diagnosis Note [id number] JILLIAN CARMICHAEL MD [facility] [address] [place] [address], [place] [address] 04/02/2021 14:26:54 05/06/2021 13:45:15 Diarrhea 13169782 R19.7 Clostridio ides difficile infection 737330123 A04.72 Follow-up in 1 month to be sure she is improving. [id number] JILLIAN CARMICHAEL MD [facility] [address] [place] [address], [place] [address] 1 04/29/2021 09:10:35 04/30/2021 10:25:43 Diarrhea 69319170 R19.7 Clostridio ides difficile infection 450532524 A04.72 [id number] JILLIAN CARMICHAEL MD [facility] [address] [place] [address], [place] [address] 1 06/10/2021 11:45:18 06/11/2021 08:01:48 Diarrhea 11619000 R19.7 maybe post infectious ibs vs ongoing infectioni d consult -- not able to be seen in [place] due to insurance issues Clostridio ides difficile infection 311312902 A04.72 recurrentj ust finished round 2 of dificidsom e improvemen tmore postprandi al diarrhea now [id number] NANCY MOHAMUD APRN [facility] [address] [place] [id number] 11/01/2023 13:46:56 11/02/2023 05:13:49 Fatigue 94369294 R53.83 worsening overallwil l assess thyroid antibodies Vitamin D deficiency 347 56435 E55.9 low of 16.9 Pain of mu ltiple joints 99862705 M25.50 without synovitis, no dactylitis , no joint effusionsn o skin changes or rashesnorm al skin turgorno swelling, redness, tenderness alonewill assess an arthritis panel Pruritic rash 47701817 L 28.2 recurring rashes [id number] NANCY MOHAMUD APRN [facility] [address] [place] [address] 12/02/2023 09:03:15 12/03/2023 04:47:12 Fatigue 36451504 R53.83 worsening overallneg ative thyroid antibodies Vitamin D deficiency 347 61734 E55.9 low of 16.9 Pruritic rash 96849522 L 28.2 recurring rashesnega tive work up Unable to balance 687044 006 R26.89 Health Concerns Section Related Observation LastModified by Organization Detai ls LastModified Time None Recorded Concern Status LastModified by Organization Details LastModified Time None Recorded Advance Directives Directive None Recorded Payers Insurance Date Sequence Insurance Name Policy Number Policy White Covered Member ID White Member ID Guarantor Name 12/03/2023 1 [facility] [place] (MEDICAID REPLACEMENT - HMO) [id number] Alise Stein [id number] Alise Stein Notes Date Note Type Note Provider Name and Address Organization Details Recorded Time 04/02/2021 text/html History of IBS t ype symptoms with occasional diarrhea. Notes significant increase in diarrhea over the summer. Stool testing revealed C. difficile. She brought copies of the stool testing. This was a PCR test. was treated with Flagyl without improvement. She was then treated with short course vancomycin with slight improvement. She took long course of vancomycin with some improvement but again the symptoms recurred. She is currently having diarrhea frequently 5-10 times a day. No abdominal pain. JILLIAN CARMICHAEL MD [address] [place], [address], [facility] 05/06/2021 10:51:40 04/29/2021 text/html Visit today is b eing conducted via telehealth using both audio/video. The patient confirms that he/she is physically located in [place] at the time of this visit. Patient expressed understanding of audio/video telehealth as a billable visit and has consented. Patient also expressed understanding that not every condition can be appropriately addressed via telehealth and that this telehealth visit may need to be converted to an in-person visit or may even result in a recommendation to go to the E.R. at the provider s discretion in order to provide the best possible care. took dificidseemed to help still having diarrheanot eating>10x a day JILLIAN CARMICHAEL MD [address] [place], [address], [facility] 04/29/2021 16:23:36 06/10/2021 text/html Visit today is b eing conducted via telehealth using both audio/video. The patient confirms that he/she is physically located in [place] at the time of this visit. Patient expressed understanding of audio/video telehealth as a billable visit and has consented. Patient also expressed understanding that not every condition can be appropriately addressed via telehealth and that this telehealth visit may need to be converted to an in-person visit or may even result in a recommendation to go to the E.R. at the provider s discretion in order to provide the best possible care. diarrheadid 2nd round of cdiffhelps someflorastor helps somestill diarrhea -- huy post prandial JILLIAN CARMICHAEL MD [address] [place], [address], [facility] 06/10/2021 15:49:43 11/01/2023 text/html new patient here for initial evaluation and consultation for a positive marker for lupus; she was seen with [facility] and he said she had RA and fibromyalgia; she reports she was asked to see someone else due to being told that she had lupus, then no, then RA and then no; she has increased malar rashes; she has been tested a few times; she has worsening neck pain; 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; she has increased swelling in the lymph nodes; she was seen with cardiology and was dx with inappropriate sinus tachycardia; she has so many symptoms that run into another; her bones hurt her; all others are negative; family history of MS NANCY MOHAMUD, ASSOCIATE PROFESSOR OF SOCIOLOGY [address] [place], [address], [facility] 11/30/2023 12:29:10 12/02/2023 text/html f/u on pred tria l without any findings; positive marker for lupus; she was seen with rheumatology and he said she had RA and fibromyalgia; she reports she was asked to see someone else due to being told that she had lupus, then no, then RA and then no; she has increased malar rashes; she has been tested a few times; she has worsening neck pain; 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
--- OUTSIDE RECORDS SUMMARY | 2024-10-27 12:35 | XMS_ITS | Clinical Summary ---
Author Organization [facility] [place] [address] Care Team Providers Care Funeral Home Assistant Name Role Phone Unavailable Primary Care Provider Unavailabl e Social History Tobacco Use Types Packs/Day Years Used Date Smoking Tobacco: Never Assessed Comments Unknown Sex and Gender Information Value Date Recorded Sex Assigned at Not on file Legal Sex Female 8:06 AM EDT Gender Identity Not on file Sexual Orientation Not on file Plan of Treatment Health Maintenance Due Date Last Done Comments Annual Wellness Exam 1988 DTaP/TDaP/Td (1 - Tdap) 2004 Hepatitis B Vaccine (1 of 3 - 19+ 3-dose series) 2004 COVID-19 Vaccine ( - 2023-2 5 season) 2024 Influenza Vaccine (Season Ended) 2025 Meningococcal B Vaccine Aged Out No l onger eligible based on patient's age to complete this topic Pneumococcal Vaccine 0-49 Aged Out No longer eligible based on patient's age to complete this topic
== END 2024-10-27 23:59 | disposition home or self-care (01) ==
LOC: RT 12:33
PROVIDERS: PCP Nurse Practitioner Family; Visit Provider Internal Medicine
DX: I49.1 Atrial premature depolarization (principal); I47.10 Supraventricular tachycardia, unspecified; I49.3 Ventricular premature depolarization; I47.11 Inappropriate sinus tachycardia, so stated
CPT/HCPCS: 93270

== ENCOUNTER 2024-11-09 10:42 | Day surgery (SDC) | payer MEDICAID, SELFPAY ==
--- OUTSIDE RECORDS SUMMARY | 2024-11-09 10:49 | XMS_ITS | Data Portability ---
Author Organization [facility] Address [address] [facility] [address] [place] [address] Assessment Encounter Date Assessment Date Assessment LastModified by Organization Details LastModified Time 04/29/2021 04/29/2021 check gi pcr and calprotecin mashmun Not available 04/29/2021 16:22:33 Plan of Treatment Reminders Order Date Submit Date Provider Last Modified By Organization Details Last Modified Time Details Appointments None recorded. Lab vitamin D, 25-hydrox y, total, serum 2023 [facility], [address] [place] [address], [id number], 4 17:09:17 ccp (cyclic citrullin ated peptide) iga+igg, serum 2023 [facility], [address] [place] [address], [id number], 15:20:10 rf (rheumato id factor), serum 2023 [facility], [address] [place] [address], [id number], 4 17:44:24 C reactive protein, QN, serum or plasma 2023 024 [facility], [address] [place] [address], [address], 4 17:44:22 uric acid, serum or plasma 2023 024 [facility], [address] [place] [address], [address], 4 17:44:21 ESR (erythroc yte sedimenta tion rate), blood 2023 024 [facility], [address] [place] [address], [id number], 4 19:11:43 JAIME (antinucl ear antibodie s) panel, serum 2023 024 [facility], [address] [place] [address], [id number], 4 08:04:08 thyroid panel, serum 2023 024 [facility], [address] [place] [address], [address], 4 18:31:21 T4, free, serum 2023 024 [facility], [address] [place] [address], [address], 4 16:58:31 TSH, serum or plasma 2023 024 [facility], [address] [place] [address], [address], 4 16:58:35 T3, free, serum or plasma 2023 024 [facility], [address] [place] [address], [address], 4 16:58:33 immunoglo bulins iga+igg+i gm, quantitat michael, serum 2023 024 [facility], [address] [place] [address], [address], 4 17:44:19 hepatitis (A+B+C) panel, serum 2023 [facility], [address], [place], [address], 4 17:00:[address] referral - with headaches , muscle pain, muscle spasm, signs of POTs with normal cardiac work up; loses balance; family history of MS 2023 DORINA Betancur MD, [address] , [facility] [address], [place], [address], 4 10:15:32 Procedures None recorded. Surgeries None recorded. Imaging None recorded. Medication Orders prednison e 5 mg tablet 2023 024 [facility][id number], [address], [id number], 4 09:36:56 cholestyr amine (with sugar) 4 gram oral powder [address] [facility] #[id number], [address], [id number], 4 14:20:35 Florastor 250 mg capsule [address] [facility] #[id number], [address], [id number], 4 14:20:45 Dificid 200 mg tablet 2020 021 [facility] #[id number], [address], [id number], 1 15:53:42 Patient TargetsNo targets recorded. Patient [...] 1.32 NG/dL 0.93-1 .70 normal Not Available [facility] [address] [place] [address], [address], 11/01/2023 16:58:31 11/01/19 24 11/01/2023 T3 FREE T3 free 3.46 pg/mL 2.00-4 .40 normal Not Available [facility] [address] [place] [address], [address], 11/01/2023 16:58:33 11/01/19 24 11/01/2023 TSH TSH 0.687 u[IU] /mL 0.270- 4.200 normal Not Available [facility] [address] [place] [address], [address], 11/01/2023 16:58:35 11/01/19 24 11/01/2023 HEPAT ITIS PANEL hepatitis A Ab, IgM NONREA CTIVE nonrea ctive normal Not Available [facility] [address] [place] [address], [address], 11/01/2023 17:00:21 11/01/19 24 11/01/2023 HEPAT ITIS PANEL hepatitis B surface Ag NONREA CTIVE nonrea ctive normal Not Available [facility] [address] [place] [address], [address], 11/01/2023 17:00:21 11/01/19 24 11/01/2023 HEPAT ITIS PANEL hepatitis B core Ab,IgM NONREA CTIVE nonrea ctive normal Not Available [facility] [address] [place] [address], [address], 11/01/2023 17:00:21 11/01/19 24 11/01/2023 HEPAT ITIS PANEL hcab, reflex viral RNA qt NONREA CTIVE nonrea ctive normal Antib odies to HCV were not detec josé; does not exclu de the possi bilit y of expos ure to HCV. Not Available [facility] [address] [place] [address], [id number], 11/01/2023 17:00:21 11/01/19 24 11/01/2023 VITAM IN D 25-OH vitamin D 25-oh, total 31 NG/mL >=30 NG/mL normal Not Available [facility] [address] [place] [address], [address], 11/01/2023 17:09:17 11/01/19 24 11/01/2023 QUANT . IMMUN OGLOB ULINS IgG 1164 mg/dL 700-16 00 normal Not Available [facility] [address] [place] [address], [address], 11/01/2023 17:44:19 11/01/19 24 11/01/2023 QUANT . IMMUN OGLOB ULINS IgA 189 mg/dL 70-400 normal Not Available [facility] [address] [place] [address], [address], 11/01/2023 17:44:19 11/01/19 24 11/01/2023 QUANT . IMMUN OGLOB ULINS IgM 243 mg/dL 40-230 high Not Available [facility] [address] [place] [address], [address], 11/01/2023 17:44:19 11/01/19 24 11/01/2023 URIC ACID [...] mstan jaziel. Arthr itis Care and Resea [facility] Vol 64 No 10, 2011 Nury Kramer ge of Rheum atolo gy ----- ----- ----- ----- ----- ----- ----- ----- ----- ----- ----- ---- Not Available [facility] [address] [place] [address], [address], 11/01/2023 17:44:21 11/01/19 24 11/01/2023 C REACT MICHAEL PROTE IN C reactive protein 0.66 mg/dL 0.00-0 .49 high Not Available [facility] [address] [place] [address], [address], 11/01/2023 17:44:22 11/01/19 24 11/01/2023 RF SCREE N, QUANT . rf screen, quant. <10.0 [IU]/ mL 0.0-13 .9 normal Not Available [facility] [address] [place] [address], [address], 11/01/2023 17:44:24 11/01/19 24 11/01/2023 ESR, AUTOM ATED ESR, automated 19 mm 0-19 normal Not Available [facility] [address] [place] [address], [address], 11/01/2023 19:11:43 11/01/19 24 11/02/2023 THYRO ID ANTIB ODIES PANEL thyroid peroxidase Ab <1 IU/mL <9 normal Not Available [facility] [address] [place] [address], [address], 11/02/2023 18:31:21 11/01/19 24 11/02/2023 THYRO ID ANTIB ODIES PANEL thyroglobuli n Ab <1 IU/mL < or = 1 normal Not Available [facility] [address] [place], [address], 11/02/2023 18:31:21 11/01/19 24 11/04/2023 JAIME REFLE X COMME NT JAIME reflex comment see below normal REFLE X TESTI NG IN PROGR ESS INCLU KAY: Anti- DNA (ds) Ab, SM/RN P Abs, SS-A/ SS-B Abs, and Scler oderm a Ab Testi ng could take up to 7 days to compl ete. Not Available [facility] [address] [place], [address], 11/04/2023 08:03:58 11/01/19 24 11/04/2023 JAIME W/ [...] infor katerine mesa e refer to http: //[facility] tiffany beckman.Que stDia gnost ics.c om/fa q/FAQ 177 (This link is being provi ded for infor rosario ramirez/ educa fartun l purpo ses only. ) Not Available [facility] [address] [place], [address], 11/04/2023 08:04:08 11/01/19 24 11/04/2023 JAIME W/ REFLE X JAIME titer 1:40 titer high A low level JAIME titer may be prese nt in pre-c linic al autoi mmune disea ses and twan l indiv idual s. Refer ence Range <1:40 Negat michael 1:40- 1:80 Low Antib jason Level >1:80 Grant josé Antib jason Level Not Available [facility] [address] [place] [address], [address], 11/04/2023 08:04:08 11/01/19 24 11/04/2023 JAIME W/ [...] Patte rns (http s://d oi.or g/10. 1515/ [facility]- 2017- 0052) Not Available [facility] [address] [place] [address], [address], 11/04/2023 08:04:08 11/01/19 24 11/04/2023 JAIME REFLE X TESTI NG sm antibody <1.0 NEG ai <1.0 neg normal Not Available [facility] [address] [place] [address], [address], 11/04/2023 13:53:54 11/01/19 24 11/04/2023 JAIME REFLE X TESTI NG sm/distribution accounting clerk Ab <1.0 NEG ai <1.0 neg normal Not Available [facility] [address] [place] [address], [address], 11/04/2023 13:53:54 11/01/19 24 11/04/2023 AJIME REFLE X TESTI NG ss-A Ab <1.0 NEG ai <1.0 neg normal Not Available [facility] [address] [place] [address], [address], 11/04/2023 13:53:54 11/01/19 24 11/04/2023 JAIME REFLE X TESTI NG ss-B Ab <1.0 NEG ai <1.0 neg normal Not Available [facility] [address] [place] [address], [address], 11/04/2023 13:53:54 11/01/19 24 11/04/2023 JAIME REFLE X TESTI NG scleroderma Ab <1.0 NEG ai <1.0 neg normal Not Available [facility] [address] [place] [address], [address], 11/04/2023 13:53:54 11/01/19 24 11/04/2023 ANTI- CCP anti-ccp <16 units normal Refer ence Range Negat michael: <20 Weak Posit michael: 20-39 Moder ate Posit michael: 40-59 Stron g Posit michael: >59 Not Available [facility] [address] [place] [address], [address], 11/04/2023 15:20:10 11/01/19 24 11/04/2023 JAIME REFLE X TESTI NG sm antibody <1.0 NEG ai <1.0 neg normal Not Available [facility] [address] [place] [address], [address], 11/12/2023 17:03:51 11/01/19 24 11/04/2023 JAIME REFLE X TESTI NG sm/distribution accounting clerk Ab <1.0 NEG ai <1.0 neg normal Not Available [facility] [address] [place] [address], [address], 11/12/2023 17:03:51 11/01/19 24 11/04/2023 JAIME REFLE X TESTI NG ss-A Ab <1.0 NEG ai <1.0 neg normal Not Available [facility] [address] [place] [address], [address], 11/12/2023 17:03:51 11/01/19 24 11/04/2023 JAIME REFLE X TESTI NG ss-B Ab <1.0 NEG ai <1.0 neg normal Not Available [facility] [address] [place] [address], [address], 11/12/2023 17:03:51 11/01/19 24 11/04/2023 JAIME REFLE X TESTI NG scleroderma Ab <1.0 NEG ai <1.0 neg normal Not Available [facility] [address] [place], [address], 11/12/2023 17:03:51 11/01/19 24 11/12/2023 JAIME REFLE X TESTI NG DNA (ds) Ab NEGATI VE negati ve normal Not Available [facility] [address] [place], [address], 11/12/2023 17:03:51 Result Notes None recorded. Procedures Surgical History Date Name Laterality Status Provider Name and Address Organization Details Recorded Time 05/24/19 hysterectomy completed Shelbie Almeida [facility] 04/02/2021 14:38:43 02/02/20 section completed [facility] 11/01/2023 14:23:15 fecal microbiota transplantation completed [facility] 11/01/2023 14:22:57 Imaging Results None recorded. Procedure [...] Address Organization Details Last Updated DateTime 4 21522.1 5 g 92 /min 95 % 95 % 120 mm[Hg] 88 mm[Hg] Marcy Marx [facility] 4 14:25:12 Date Recorded Body weight Heart rate Oxygen saturation Oxygen saturation in Arterial blood by Pulse oximetry Systolic blood pressure Diastolic blood pressure Provider Name and Address Organization Details Last Updated DateTime 4 76981.5 6 g 110 /min 99 % 99 % 110 mm[Hg] 70 mm[Hg] Marcydemi Marx [facility] 4 09:18:26 Date Recorded Body height Body mass index (BMI) Body weight Heart rate Systolic blood pressure Diastolic blood pressure Provider Name and Address Organization Details Last Updated DateTime 1 167.64 cm 26 kg/m2 45598.3 7 g 122 /min 117 mm[Hg] 79 mm[Hg] Shelbie Almeida [facility] 1 14:36:50 Social History Question Answer Notes LastModified by Organizat ion Details LastModified Time Tobacco Smoking Status Former Smoker quit smoking November 2022 Marcydemi Marx [facility] 11/01/2023 14:22:02 What Was The Date [...] available 02/2021 14:38:09 Medical History Condition Response Anxiety Disorder Y Difficulty Swallowing Y Arthritis Y Blood Transfusion Y Acid Reflux (GERD) Y Cancer Y Headaches Y Depression Y GI Problems Y Gynecological HistoryNo gynecological history recorded. Obstetrics History GPAL:G 0 P 0 0 0 0 Past Encounters Encounter ID Performer Location Encounter Start Date Encounter Closed Date Diagnosis/Indication Diagnosis SNOMED-CT Code Diagnosis ICD10 Code Diagnosis Note [id number] JILLIAN CARMICHAEL MD [facility] [address] [place] [address], [place] [address] 04/02/2021 14:26:54 05/06/2021 13:45:15 Diarrhea 88138717 R19.7 Clostridio ides difficile infection 313577453 A04.72 Follow-up in 1 month to be sure she is improving. [id number] JILLIAN CARMICHAEL MD [facility] [address] [place] [address], [place] [address] 04/29/2021 09:10:35 04/30/2021 10:25:43 Diarrhea 95389463 R19.7 Clostridio ides difficile infection 862102606 A04.72 [id number] JILLIAN CARMICHAEL MD [facility] [address] [place] [address], [place] [address] 06/10/2021 11:45:18 06/11/2021 08:01:48 Diarrhea 81966309 R19.7 maybe post infectious ibs vs ongoing infectioni d consult -- not able to be seen in [place] due to insurance issues Clostridio ides difficile infection 983111193 A04.72 recurrentj ust finished round 2 of dificidsom e improvemen tmore postprandi al diarrhea now [id number] NANCY MOHAMUD APRN [facility] [address] [place] [id number] 11/01/2023 13:46:56 11/02/2023 05:13:49 Fatigue 22640308 R53.83 worsening overallwil l assess thyroid antibodies Vitamin D deficiency 347 90751 E55.9 low of 16.9 Pain of mu ltiple joints 83883843 M25.50 without synovitis, no dactylitis , no joint effusionsn o skin changes or rashesnorm al skin turgorno swelling, redness, tenderness alonewill assess an arthritis panel Pruritic rash 45248705 L 28.2 recurring rashes [id number] NANCY MOHAMUD APRN [facility] [address] [place] [address] 12/02/2023 09:03:15 12/03/2023 04:47:12 Fatigue 75351712 R53.83 worsening overallneg ative thyroid antibodies Vitamin D deficiency 347 97008 E55.9 low of 16.9 Pruritic rash 54726078 L 28.2 recurring rashesnega tive work up Unable to balance 959222 006 R26.89 Health Concerns Section Related Observation LastModified by Organization Detai ls LastModified Time None Recorded Concern Status LastModified by Organization Details LastModified Time None Recorded Advance Directives Directive None Recorded Payers Insurance Date Sequence Insurance Name Policy Number Policy White Covered Member ID White Member ID Guarantor Name 12/03/2023 1 [facility] (MEDICAID REPLACEMENT - HMO) [id number] Alise Stein [id number] Alise Stein Notes Date Note Type Note [...] No abdominal pain. JILLIAN CARMICHAEL MD [address] [place], [address], [facility] 05/06/2021 10:51:40 04/29/2021 text/html Visit today is b eing conducted via telehealth using both audio/video. The patient confirms that he/she is physically located in [place] at the time of this visit. Patient [...] eating>10x a day JILLIAN CARMICHAEL MD [address] [place], [address], [facility] 04/29/2021 16:23:36 06/10/2021 text/html Visit today is b eing conducted via telehealth using both audio/video. The patient confirms that he/she is physically located in [place] at the time of this visit. Patient [...] huy post prandial JILLIAN CARMICHAEL MD [address] [place], [address], [facility] 06/10/2021 15:49:43 11/01/2023 text/html new patient [...] negative; family history of MS NANCY MOHAMUD, AU PAIR [address] [place], [address], [facility] 11/30/2023 12:29:10 12/02/2023 text/html f/u on [...] mitotic spindle NANCY MOHAMUD, PAMELA [address] [place], [address], [facility] 12/02/2023 09:49:12 OBGyn Episode No OBEpisode recorded.
--- OUTSIDE RECORDS SUMMARY | 2024-11-09 10:49 | XMS_ITS | Clinical Summary ---
Author Organization [facility] [address] Care Team Providers Care Bookmobile Driver Name Role Phone Unavailable Primary Care Provider [...]
[2024-11-09 11:22] VITALS: BP 153/98; PULSE 95; RESP 16; TEMP 36.3; O2SAT 99
[2024-11-09 11:28] VITALS: BMI 25.0
--- NOTE | 2024-11-09 13:00 | CA_ITS ---
APPROVED REPORT EXAM: Comprehensive 2D, Doppler, and color-flow Echocardiogram Stock Roller: SARAH Field, RVS Ht: 5 ft 6 in Wt: 160lbs BSA: 1.82 BP: 150/90 mmHg Indications: CP, Palpitations Echo Enhancing Agent Indication: Rule Out Septal Defect Agent(s) / Amount(s) Used: Agitated Saline 20 cc 2D Dimensions IVSd 0.87 cm LVEF (Visual) 62.50 % PWd 1.01 cm LA Volume 24.50 mL LVDd 3.88 cm LA Volume Index 13.46 mL/m2 (M/F) 16-34 LVDs 2.59 cm Left Atrium 2.59 cm M-Mode Dimensions RVDd 2.65 cm (0.9-2.6) LA Diam 2.59 cm (1.9-4.0) LVDd 4.63 cm (3.5-5.7) LVDs 3.42 cm (3.5-5.7) IVSd 0.84 cm (0.6-1.1) PWd 0.97 cm (0.6-1.1) EF (Teich) 51.30% EPSs 0.44 cm FS 26.10% EDV (Teich) 98.80 mL TAPSE 2.01 (<1.7) ESV (Teich) 48.10 mL LV Diastology E Decel Time 120 (160-240 msec) E/A Ratio 1.14 MED A' 7.70 cm/s LAT A' 8.10 cm/s Mitral Valve MV A Velocity 49.0 (40-130 cm/s) E/A Ratio 1.14 Pulmonary Valve CO End VMAX 147.0 cm/s Tricuspid Valve TR P. Velocity 194.00 cm/s RAP Estimate 10.00 mmHg RVSP 25.10 mmHg Left Ventricle The left ventricle is normal size. The left ventricular systolic function is normal. The left ventricular ejection fraction is within the normal range. There is normal left ventricular wall thickness. There is normal LV segmental wall motion. The left ventricular diastolic function is normal. LVEF is 55%. Right Ventricle The right ventricle is normal size. The right ventricular systolic function is normal. Atria The left atrium size is normal. The right atrium size is normal. There is no Doppler evidence of interatrial shunt. Agitated saline administration demonstrates no evidence of interatrial shunt. Aortic Valve The aortic valve opens well. There is no aortic valvular stenosis. No aortic regurgitation is present. Mitral Valve The mitral valve is normal in structure. No evidence of mitral valve stenosis. Mild mitral regurgitation. Tricuspid Valve Tricuspid valve is grossly normal in structure and function. Trace tricuspid regurgitation. RVSP is normal. Pulmonic Valve The pulmonary valve is normal in structure. Trace pulmonic regurgitation. Great Vessels The aortic root is normal in size. IVC is normal in size and collapses >50% with inspiration. Pericardium There is no pericardial effusion. Other Information Study Quality: Fair Conclusion Normal biventricular systolic function. Mild MR. There is no Doppler evidence of interatrial shunt. Agitated saline administration demonstrates no evidence of interatrial shunt. Electronically signed by : Angélica Rowe MD 11/13/2024 13:15:48
--- NOTE | 2024-11-09 15:24 | P.PCN_ITS ---
[facility] Procedure Note Date: 11/09/24 Time: 12:12 Procedure Note:: TEST: Upright Tilt Table Test REQUESTING PHYSICIAN: Nadiya Anderson APRN INDICATION: Dizziness and palpitations, inappropriate sinus tachycardia MEDS: None PRE-TEST VITAL SIGNS (SUPINE): BP 144/97, HR 73, O2 sats 95% TEST SUMMARY: Patient was prepared per protocol. Patient was then tilted into the upright position at 70 degrees for a total of 30 minutes with the test being terminated at the end of the 30 minute test. She had no syncope or near syncope. She complained of some dizziness immediately after being placed in the upright position. This quickly resolved. Her lowest BP was 122/88 and maximum BP was 157/126. Minimum HR during test was 92 bpm and maximum HR was 119 bpm after 20 minutes. Her heart rhythm was sinus rhythm throughout the test. O2 sats remained 97-99% throughout the test. COMPLICATIONS: None CONCLUSION: This test is a borderline positive test for POTS with an increase in heart rate of 30 bpm within 10 minutes, but no significant symptoms induced. Clinical correlation is advised.
== END 2024-11-09 23:59 | disposition home or self-care (01) ==
LOC: RT 11-10 08:04
PROVIDERS: PCP Nurse Practitioner Family; Visit Provider Internal Medicine
DX: I34.0 Nonrheumatic mitral (valve) insufficiency (principal); I47.11 Inappropriate sinus tachycardia, so stated; R42 Dizziness and giddiness; E78.5 Hyperlipidemia, unspecified; M32.9 Systemic lupus erythematosus, unspecified; Z87.891 Personal history of nicotine dependence; Z79.52 Long term (current) use of systemic steroids; Z79.899 Other long term (current) drug therapy; Z82.49 Family history of ischemic heart disease and other diseases of the circulatory system
CPT/HCPCS: 93306; 93660

== ENCOUNTER 2024-11-16 15:05 | Outpatient (CLI) | payer MEDICAID, SELFPAY ==
--- OUTSIDE RECORDS SUMMARY | 2024-11-16 15:07 | XMS_ITS | Clinical Summary ---
Author Organization [facility] [place] [address] Care Team Providers Care Segment Producer Name Role Phone Unavailable Primary Care Provider [...]
[2024-11-16 15:40] LABS: Basophils % 0.2 % (0.1-2.0); Hematocrit 45.7 % (37.0-47.0); Hemoglobin 14.7 g/dL (12.2-16.2); Immature Granulocytes # 0.21 10^3uL; Immature Granulocytes % 0.8 %; Lymphocytes # 2.4 K/mm3 (0.7-4.5); Lymphocytes % 9.2 % (10-50); Mean Corpuscular HGB Conc 32.2 g/dL (31.8-35.4); Mean Corpuscular Hemoglobin 28.7 pg (27.0-31.2); Mean Corpuscular Volume 89.3 fl (81-99); Mean Platelet Volume 10.1 fl (7.4-10.4); Monocytes # 0.5 K/mm3 (0.1-1.0); Monocytes % 1.8 % (1.7-9.3); Neutrophils # 22.4 K/mm3 (1.8-7.8); Nucleated Red Blood Cells # 0 10^3/uL; Nucleated Red Blood Cells % 0 %; Platelet Count 347 K/mm3 (142-424); Red Blood Count 5.12 M/mm3 (4.20-5.40); Red Cell Distribution Width 12.6 % (11.5-17.5); Red Cell Distribution Width-SD 41.3 fL; White Blood Count 25.5 K/mm3 (4.8-10.8)
[2024-11-16 15:45] LABS: MANUAL DIFFERENTIAL MANUAL DIFFERENTIAL (MANUAL DIFF)
[2024-11-16 16:09] LABS: Alanine Aminotransferase 17 U/L (12-78); Albumin Level 5.2 g/dl (3.5-5.0); Alkaline Phosphatase 73 U/L (38-126); Anion Gap 17.3 mEq/L (5-15); Aspartate Amino Transferase 21 U/L (14-36); Bilirubin,Direct 0.4 mg/dl (0.0-0.4); Bilirubin,Indirect 0.1 mg/dL (0.0-0.9); Bilirubin,Total 0.5 mg/dl (0.2-1.3); Bilirubin,Unconjugated 0.1 mg/dL (0.0-1.1); Blood Urea Nitrogen 10 mg/dl (7-17); Carbon Dioxide 25 mmol/L (22.0-30.0); Chloride 103 mmol/L (98-107); Chol/HDL Ratio 5.9 (1-3.5); Cholesterol 266 mg/dl (140-200); Estimated Glomerular Filt Rate 94 ml/min (>60); GFR (African American) 113 ML/MIN (>60); Glucose 121 mg/dl (74-100); HDL Cholesterol 45 mg/dl (40-60); Magnesium 1.9 mg/dl (1.6-2.3); Potassium 4.3 mmoL/L (3.5-5.1); Sodium 141 mmol/L (136-145); Total Protein,Serum 8.1 g/dl (6.3-8.2); Triglycerides 154 mg/dl (30-150); VLDL Cholesterol 31 mg/dL (0-40)
[2024-11-16 16:20] LABS: Direct LDL Cholesterol 165.45 mg/dL (100-129)
[2024-11-16 16:31] LABS: Lymphocytes % 13 % (10-50); Monocytes % 1 % (2-9); Neutrophils % 86 % (42-76); Platelet Estimate Normal; Total Cells Counted 100
[2024-11-16 16:32] LABS: Anisocytosis 1+; Macrocytosis 1+; Poikilocytosis 1+; Polychromasia 1+
[2024-11-16 16:35] LABS: Tear Drop Cells 1+
[2024-11-16 16:37] LABS: Thyroid Stimulating Hormone 0.15 uIU/mL (0.465-4.68)
== END 2024-11-16 23:59 | disposition home or self-care (01) ==
LOC: LAB 15:05
PROVIDERS: PCP Nurse Practitioner Family; Visit Provider Internal Medicine
DX: R42 Dizziness and giddiness (principal); G90.A Postural orthostatic tachycardia syndrome [POTS]
CPT/HCPCS: 36415; 80048; 80061; 80076; 83735; 84439; 84443; 85007; 85025; 85027

== ENCOUNTER 2024-12-14 13:43 | Outpatient (CLI) | payer MEDICAID, SELFPAY ==
--- OUTSIDE RECORDS SUMMARY | 2024-12-14 13:49 | XMS_ITS | Clinical Summary ---
Author Organization Healthcare Address [address] [place] [address] Care Team Providers Care Reconciliation Accountant Name Role Phone Unavailable Primary Care Provider Unavailabl e Family History Medical History Relation Name Comments Conversions - Other Other 1 Depressi on with anxiety Diabetes Other 2 Hypertension Other 3 Stomach cancer Other 4 Multiple sclerosis Other 5 Scoliosis Other 6 Conversions - Other Other 7 Schizoph ab, paranoid, chronic Relation Name Status Comments Other 1 Other 2 Other 3 Other 4 Other 5 Other 6 Other 7 Social History Tobacco Use Types Packs/Day Years Used Date Smoking Tobacco: Every Day Alcohol Use Standard Drinks/Week Comments No 0 (1 standard drink = 0.6 oz pur e alcohol) Comments Unknown Sex and Gender Information Value Date Recorded Sex Assigned at Not on file Legal Sex Female 7:38 PM EDT Gender Identity Not on file Sexual Orientation Not on file Last Filed Vital Signs Vital Sign Reading Time Taken Comments Blood Pressure 103/70 12/26/2019 10:24 AM EDT Pulse 73 12/26/2019 10:24 AM EDT Temperature 36.6 C (97.9 F) 12/26/2019 10:24 AM EDT Respiratory Rate - - Oxygen Saturation - - Inhaled Oxygen Concentration - - Weight 54.2 kg (119 lb 8.9 oz) 12/26/2019 10:24 AM EDT Height 170.2 cm (5' 7 ) 12/26/2019 10:24 AM EDT Body Mass Index 18.73 12/26/2019 10:24 AM EDT Plan of Treatment Upcoming Encounters Date Type Department Care Team (Late st Contact Info) Description 12/26/2024 12:30 PM EDT [facility] [address] [place] [address] Dalia Puckett R, [facility] [address] [place] [id number] Health Maintenance Due Date Last Done Comments [facility]-Depression Screening 1985 [facility]-HIV Screening 1985 [facility]-Infant/Child/Adol SDOH Screenings 1985 [facility]-Varicella Vaccines (1 of 2 - 13+ 2-dose series) 1998 HPV Vaccines (1 - 3-dose series) 2000 [facility]- SDOH Screenings 11/18/2003 [facility]-Adult SDOH Screenings 11/18/2003 [facility]-DTaP,Tdap,and Td Vaccine s (1 - Tdap) 2004 [facility]-Hepatitis B Vaccines (1 of 3 - 19+ 3-dose series) 2004 [facility]-DZBAL-40 Vaccine (1 - 20 24-25 season) 2024 [facility]-Influenza Vaccine (#1) 2025 [facility]-Zoster Vaccines (1 of 2) 11/18/2035 [facility]-Hepatitis C Screening Completed 12/26/2019 [facility]-HIB Vaccines Aged Out No longer e ligible based on patient's age to complete this topic [facility]-Hepatitis A Vaccines Aged Out No longer eligible based on patient's age to complete this topic [facility]-IPV Vaccines Aged Out No longer e ligible based on patient's age to complete this topic [facility]-Pneumococcal Vaccine: Pediatrics (0 to 5 Years) and At-Risk Patients (6 to 49 Years) Aged Out No long er eligible based on patient's age to complete this topic [facility]-Rotavirus Vaccines Aged Out No lo nger eligible based on patient's age to complete this topic Procedures Procedure Name Priority Date/Time Associated Diagnosis Comments HEPATITIS C ANTIBODY W/REFLEX TO HCV QUANT PCR Routine 12/26/2019 11:18 AM EDT from Last 3 Months or Most Recently Relevant to Health Maintenance Results * Hepatitis C Antibody (12/26/2019 11:18 AM EDT) Hepatitis C Antibody NEGATIVE Reference Range: Negative SUNQUEST 12/26/2019 11:1 8 AM EDT 12/26/2019 12:49 PM EDT Ronal Wetzel MD LAB BLOOD ORDERABLES Final Result SUNQUEST from Last 3 Months or Most Recently Relevant to Health Maintenance Insurance
--- OUTSIDE RECORDS SUMMARY | 2024-12-14 13:49 | XMS_ITS | Clinical Summary ---
Author Organization [facility] Address [address] [place] [address] Care Team Providers Care Store Sales Leader Name Role Phone Jonathan Quispe MD Primary Care Provider [phone] Allergies No known active allergies Medications amoxicillin-clavula jovany (Augmentin) 875-125 MG tablet Take 1 tablet by mouth 2 (two) times a day. for 10 days 1 Active benzonatate (Tessalon) 100 MG capsule 2 Active cetirizine (ZyrTEC) 10 MG tablet 1 Active cholestyramine (Questran) 4 GM/DOSE powder 2 Active diazePAM (Valium) 10 MG tablet 1 Active diazePAM (Valium) 5 MG tablet 1 Active famotidine (Pepcid) 20 MG tablet 1 Active Michelle-[facility] 60-120 MG 12 hr tablet 1 Active Dificid 200 MG tablet 1 Active fluconazole (Diflucan) 100 MG tablet 1 Active fluconazole (Diflucan) 150 MG tablet 1 Active fluticasone (Flonase) 50 MCG/ACT nasal spray 04/09/20 2 1 Active metroNIDAZOLE (Flagyl) 500 MG tablet 1 Active mirtazapine (Remeron) 15 MG tablet 1 Active mirtazapine (Remeron) 30 MG tablet 2 Active ondansetron ODT (Zofran-ODT) 4 MG disintegrating tablet 2 Active propranolol (Inderal) 10 MG tablet 1 Active predniSONE (Deltasone) 20 MG tablet TAKE 1 TABLET BY MOUTH TWICE DAILY FOR 5 DAYS 1 Active saccharomyces boulardii (Florastor) 250 MG capsule 1 capsule twice a day. Active vancomycin (Vancocin) 125 MG capsule 1 Active Family History Medical History Relation Name Comments Hypertension Mother Thyroid disease Mother Cancer Other Relation Name Status Comments Mother Other Social History Tobacco Use Types Packs/Day Years Used Date Smoking Tobacco: Every Day Cigarettes Smokeless Tobacco: Never Alcohol Use Standard Drinks/Week Comments Not Currently 0 (1 standard drink = 0.6 oz pur e alcohol) Comments Unknown Sex and Gender Information Value Date Recorded Sex Assigned at Not on file Legal Sex Female 2:46 PM EST Gender Identity Not on file Sexual Orientation Not on file Last Filed Vital Signs Vital Sign Reading Time Taken Comments Blood Pressure 115/85 12/02/2021 2:05 PM EDT Map 95 Pulse 97 12/02/2021 2:05 PM EDT Temperature 36.4 C (97.5 F) 12/02/2021 2:05 PM EDT Respiratory Rate 16 12/02/2021 2:05 PM EDT Oxygen Saturation - - Inhaled Oxygen Concentration - - Weight 74.8 kg (165 lb) 12/02/2021 2:05 PM EDT Height 167.6 cm (5' 6 ) 12/02/2021 2:05 PM EDT Body Mass Index 26.63 12/02/2021 2:05 PM EDT Plan of Treatment Health Maintenance Due Date Last Done Comments HIV Screening 1985 Hepatitis C Screening 1985 MMR Vaccines (1 of 1 - Stand maggy series) 1986 Varicella Vaccines (1 of 2 - 13+ 2-dose series) 1998 Hepatitis B Screening 11/18/2003 DTaP/Tdap/Td Vaccines (1 - Tdap) 2004 Hepatitis B Vaccines (1 of 3 - 19+ 3-dose series) 2004 COVID-19 Vaccine ( - 2023-2 5 season) 2024 Depression Risk Screening 05/24/2024 SDOH Screening 05/24/2024 Influenza Vaccine (#1) 2025 Zoster Vaccines (1 of 2) 11/18/2035 HIB Vaccines Aged Out No longer eligi ble based on patient's age to complete this topic HPV Vaccines Aged Out No longer eligi ble based on patient's age to complete this topic Hepatitis A Vaccines Aged Out No long er eligible based on patient's age to complete this topic IPV Vaccines Aged Out No longer eligi ble based on patient's age to complete this topic Meningococcal B Vaccine Aged Out No l onger eligible based on patient's age to complete this topic Meningococcal Vaccine Aged Out No nghia jose enrique eligible based on patient's age to complete this topic Pneumococcal Vaccine Aged Out No long er eligible based on patient's age to complete this topic Rotavirus Vaccines Aged Out No longer eligible based on patient's age to complete this topic Insurance [facility] Care Teams Store Sales Leader Relationship Specialty Start Date End Date Jonathan Quispe MD [address] Attn: LAQUITA Bustamante [phone] PCP - General Family Medicine 06/18/21
--- OUTSIDE RECORDS SUMMARY | 2024-12-14 13:49 | XMS_ITS | Clinical Summary ---
Author Organization [facility] Address [address] [place] [address] Care Team Providers Care Scientific Technical Writer Name Role Phone Jr Rafael Campos APRN Primary Care Prov ider Allergies No known active allergies Medications nortriptyline (Pamelor) 25 MG capsule Take 1 capsule by mouth Every Night. 30 capsule 5 03/21/2024 Active Family History Medical History Relation Name Comments Stroke Brother Abel Franklin Jr Multiple sclerosis Paternal Aunt Charmaine Stein Relation Name Status Comments Brother Abel Franklin Jr Paternal Aunt Charmaine Stein Social History Tobacco Use Types Packs/Day Years Used Date Smoking Tobacco: Former Cigarettes 1 24.1 0 10/22/1997 - 12/08/2021 Tobacco Cessation:Counseling Given: Not Answered Alcohol Use Standard Drinks/Week Comments Yes 0 (1 standard drink = 0.6 oz pure alcohol) If i drink at all, i have maybe 1-2 drinks a year Comments Unknown Sex and Gender Information Value Date Recorded Sex Assigned at Female 03/19/2024 10:20 AM EDT Legal Sex Female 9:59 AM EDT Gender Identity Female 03/19/2024 10:20 AM EDT Sexual Orientation Not on file Last Filed Vital Signs Vital Sign Reading Time Taken Comments Blood Pressure 118/88 03/21/2024 10:04 AM EDT Pulse 96 03/21/2024 10:04 AM EDT Temperature - - Respiratory Rate - - Oxygen Saturation 99% 03/21/2024 10:04 AM EDT Inhaled Oxygen Concentration - - Weight 75.3 kg (166 lb) 03/21/2024 10:04 AM EDT Height 167.6 cm (5' 6 ) 03/21/2024 10:04 AM EDT Body Mass Index 26.79 03/21/2024 10:04 AM EDT Plan of Treatment Health Maintenance Due Date Last Done Comments Annual Gynecologic Pelvic an d Breast Exam 1985 TDAP/TD VACCINES (1 - Tdap) 2004 PAP SMEAR 2006 COVID-19 Vaccine ( - 2023-2 5 season) 2024 ANNUAL PHYSICAL 03/21/2024 HEPATITIS C SCREENING 03/21/2024 INFLUENZA VACCINE 02/21/2025 Pneumococcal Vaccine 0-49 Aged Out No longer eligible based on patient's age to complete this topic Insurance [employer] [place]ICAID [place] Care Teams Scientific Technical Writer Relationship Specialty Start Date End Date Jr Rafael Campos APRN [address] [place] [address] PCP - General Nurse Practitioner 04/17/24
--- OUTSIDE RECORDS SUMMARY | 2024-12-14 13:49 | XMS_ITS | Clinical Summary ---
Author Organization [facility] [place] [place] [address] Care Team Providers Care Agitator Operator Name Role Phone Unavailable Primary Care Provider [...] - 2023-2 5 season) 2024 Influenza Vaccine (#1) 2025 Meningococcal B Vaccine Aged Out No l onger eligible based on patient's age to complete this topic Pneumococcal Vaccine 0-49 Aged Out No longer eligible based on patient's age to complete this topic
[2024-12-14 14:59] LABS: Hematocrit 43.2 % (37.0-47.0); Hemoglobin 14.3 g/dL (12.2-16.2); Immature Granulocytes % 1.8 %; Mean Corpuscular HGB Conc 33.1 g/dL (31.8-35.4); Mean Corpuscular Hemoglobin 29.2 pg (27.0-31.2); Mean Corpuscular Volume 88.3 fl (81-99); Nucleated Red Blood Cells % 0 %; Platelet Count 345 K/mm3 (142-424); Red Blood Count 4.89 M/mm3 (4.20-5.40); Red Cell Distribution Width-SD 40.5 fL; White Blood Count 10.4 K/mm3 (4.8-10.8)
[2024-12-14 15:59] LABS: Chloride 103 mmol/L (98-107); Potassium 4.4 mmoL/L (3.5-5.1); Sodium 137 mmol/L (136-145)
[2024-12-14 16:02] LABS: Anion Gap 11.4 mEq/L (5-15); Blood Urea Nitrogen 10 mg/dl (7-17); Carbon Dioxide 27 mmol/L (22.0-30.0); Creatinine,Serum 0.60 mg/dl (0.52-1.04); Estimated Glomerular Filt Rate 111 ml/min (>60); GFR (African American) 135 ML/MIN (>60); Iron 72 ug/dL (37-170)
[2024-12-14 16:03] LABS: Calcium 10.2 mg/dl (8.4-10.2); Glucose 85 mg/dl (74-100)
[2024-12-14 16:11] LABS: Total Iron Binding Capacity 301 ug/dL (265-497)
[2024-12-14 17:06] LABS: 25-OH Vitamin D, Total 23.0 ng/mL (30-100)
[2024-12-14 17:09] LABS: Free Thyroxine Index 2.8 ug/dL (5.93-13.13); T4 (Thyroxine) 10.2 ug/dl (5.53-11.0); Triiodothryronine (T3) Uptake 27 % (23.5-40.5)
[2024-12-14 17:22] LABS: Thyroid Stimulating Hormone 1.05 uIU/mL (0.465-4.68)
== END 2024-12-14 23:59 | disposition home or self-care (01) ==
LOC: LAB 13:43
PROVIDERS: PCP Nurse Practitioner Family; Visit Provider Internal Medicine
DX: I73.00 Raynaud's syndrome without gangrene (principal); E05.90 Thyrotoxicosis, unspecified without thyrotoxic crisis or storm; R00.0 Tachycardia, unspecified; Z90.710 Acquired absence of both cervix and uterus; R00.2 Palpitations; R42 Dizziness and giddiness; G90.A Postural orthostatic tachycardia syndrome [POTS]
CPT/HCPCS: 36415; 80048; 82306; 83520; 83540; 83550; 84436; 84443; 84479; 85025

== ENCOUNTER 2024-12-19 16:00 | Outpatient (RCR) | payer MEDICAID, SELFPAY | END 2024-12-19 23:59 | disposition home or self-care (01) | LOC: PT 16:00 | PROVIDERS: PCP Nurse Practitioner Family; Visit Provider Nurse Practitioner Family | DX: M54.2 Cervicalgia (principal) | CPT/HCPCS: 97014; 97110; 97140; 97163; 97530; G0283 ==

== ENCOUNTER 2025-03-14 14:28 | Outpatient (CLI) | payer MEDICAID, SELFPAY ==
--- OUTSIDE RECORDS SUMMARY | 2025-03-14 15:17 | XMS_ITS | Data Portability ---
Author Organization LAQUITA ROC Santiago [facility] Address [address] [facility] [address] [place] [address] Assessment Encounter Date Assessment Date Assessment LastModified by Organization Details LastModified Time 04/29/2021 04/29/2021 check gi pcr and calprotecin mashmun Not available 04/29/2021 16:22:33 Plan of Treatment Reminders Order Date Submit Date Provider Last Modified By Organization Details Last Modified Time Details Appointments None recorded. Lab vitamin D, 25-hydrox y, total, serum 2023 [facility], [address] [place] [address], [id number], 4 17:09:17 ccp (cyclic citrullin ated peptide) iga+igg, serum 2023 024 [facility], [address] [place] [address], [address], 4 15:20:10 rf (rheumato id factor), serum 2023 024 [facility], [address] [place] [address], [address], 4 17:44:24 C reactive protein, QN, serum or plasma 2023 024 [facility], [address] [place] [address], [address], 4 17:44:22 uric acid, serum or plasma 2023 024 [facility], [address] [place] [address], [address], 4 17:44:21 ESR (erythroc yte sedimenta tion rate), blood 2023 024 [facility], [address] [place] [address], [address], 4 19:11:43 JAIME (antinucl ear antibodie s) panel, serum 2023 024 [facility], [address] [place] [address], [address], 4 08:04:08 thyroid panel, serum 2023 024 [facility], [address] [place] [address], [address], 4 18:31:21 T4, free, serum 2023 024 [facility], [address] [place] [address], [address], 4 16:58:31 TSH, serum or plasma 2023 024 [facility], [address] [place] [address], [address], 4 16:58:35 T3, free, serum or plasma 2023 024 [facility], [address] [place] [address], [address], 4 16:58:33 immunoglo bulins iga+igg+i gm, quantitat michael, serum 2023 024 [facility], [address] [place] [address], [address], 4 17:44:19 hepatitis (A+B+C) panel, serum 2023 [facility], [address] [facility], [place], [address], 4 17:00:[address] referral - with headaches , muscle pain, muscle spasm, signs of POTs with normal cardiac work up; loses balance; family history of MS 2023 024 DORINA Betancur MD, [address], [facility] [address], [place], [address], 4 10:15:32 Procedures None recorded. Surgeries None recorded. Imaging None recorded. Medication Orders prednison e 5 mg tablet 2023 024 [place] [facility] #[id number], [address], [id number], 4 09:36:56 cholestyr amine (with sugar) 4 gram oral powder [address] [facility] #[id number], [address], [id number], 4 14:20:35 Florastor 250 mg capsule [address] [facility] #[id number], [address], [id number], 4 14:20:45 Dificid 200 mg tablet 2020 021 [place] [facility] #[id number], [address], [id number], 1 15:53:42 Patient TargetsNo targets recorded. Patient [...] 1.32 NG/dL 0.93-1 .70 normal Not Available [facility] [address] [place] [address], [address], 11/01/2023 16:58:31 11/01/19 24 11/01/2023 T3 FREE T3 free 3.46 pg/mL 2.00-4 .40 normal Not Available [facility] [address] [place] [address], [address], 11/01/2023 16:58:33 11/01/19 24 11/01/2023 TSH TSH 0.687 u[IU] /mL 0.270- 4.200 normal Not Available [facility] [address] [place] [address], [address], 11/01/2023 16:58:35 11/01/19 24 11/01/2023 HEPAT ITIS PANEL hepatitis A Ab, IgM NONREA CTIVE nonrea ctive normal Not Available [facility] [address] [place] [address], [address], 11/01/2023 17:00:21 11/01/19 24 11/01/2023 HEPAT ITIS PANEL hepatitis B surface Ag NONREA CTIVE nonrea ctive normal Not Available [facility] [address] [place] [address], [address], 11/01/2023 17:00:21 11/01/19 24 11/01/2023 HEPAT ITIS PANEL hepatitis B core Ab,IgM NONREA CTIVE nonrea ctive normal Not Available [facility] [address] [place] [address], [address], 11/01/2023 17:00:21 11/01/19 24 11/01/2023 HEPAT ITIS PANEL hcab, reflex viral RNA qt NONREA CTIVE nonrea ctive normal Antib odies to HCV were not detec josé; does not exclu de the possi bilit y of expos ure to HCV. Not Available [facility] [address] [place] [address], [address], 11/01/2023 17:00:21 11/01/19 24 11/01/2023 VITAM IN D 25-OH vitamin D 25-oh, total 31 NG/mL >=30 NG/mL normal Not Available [facility] [address] [place] [address], [address], 11/01/2023 17:09:17 11/01/19 24 11/01/2023 QUANT . IMMUN OGLOB ULINS IgG 1164 mg/dL 700-16 00 normal Not Available [facility] [address] [place] [address], [address], 11/01/2023 17:44:19 11/01/19 24 11/01/2023 QUANT . IMMUN OGLOB ULINS IgA 189 mg/dL 70-400 normal Not Available [facility] [address] [place] [address], [address], 11/01/2023 17:44:19 11/01/19 24 11/01/2023 QUANT . IMMUN OGLOB ULINS IgM 243 mg/dL 40-230 high Not Available [facility] [address] [place] [address], [address], 11/01/2023 17:44:19 11/01/19 24 11/01/2023 URIC ACID uric acid 6.4 mg/dL 2.4-5. 7 high Refer ence range s are based on popul ation norms and do not neces arsalan y corre late with treat ment targe ts. In patie nts with an estab lishe d diagn osis of gout under going Urate Lower ing Thera py (ULT) , the 2011 [facility] Guid mara eri for Manag ement of Gout recom mend a targe t uric acid level of < 6 mg/dL in all patie nts, or lower in certa in circu mstan jaziel. Arthr itis Care and Resea [facility] Vol 64 No 10, 2011 [facility] atolo [facility] ----- ----- ----- ----- ----- ----- ----- ----- ----- ----- ----- ---- Not Available [facility] [address] [place] [address], [address], 11/01/2023 17:44:21 11/01/19 24 11/01/2023 C REACT MICHAEL PROTE IN C reactive protein 0.66 mg/dL 0.00-0 .49 high Not Available [facility] [address] [place] [address], [address], 11/01/2023 17:44:22 11/01/19 24 11/01/2023 RF SCREE N, QUANT . rf screen, quant. <10.0 [IU]/ mL 0.0-13 .9 normal Not Available [facility] [address] [place] [address], [address], 11/01/2023 17:44:24 11/01/19 24 11/01/2023 ESR, AUTOM ATED ESR, automated 19 mm 0-19 normal Not Available [facility] [address] [place] [address], [address], 11/01/2023 19:11:43 11/01/19 24 11/02/2023 THYRO ID ANTIB ODIES PANEL thyroid peroxidase Ab <1 IU/mL <9 normal Not Available [facility] [address] [place] [address], [address], 11/02/2023 18:31:21 11/01/19 24 11/02/2023 THYRO ID ANTIB ODIES PANEL thyroglobuli n Ab <1 IU/mL < or = 1 normal Not Available [facility] [address] [place], [address], 11/02/2023 18:31:21 11/01/19 24 11/04/2023 JAIME REFLE X COMME NT JAIME reflex comment see below normal REFLE X TESTI NG IN PROGR ESS INCLU KAY: Anti- DNA (ds) Ab, SM/RN P Abs, SS-A/ SS-B Abs, and Scler oderm a Ab Testi ng could take up to 7 days to compl ete. Not Available [facility] [address] [place], [address], 11/04/2023 08:03:58 11/01/19 24 11/04/2023 JAIME W/ [...] infor katerine mesa e refer to http: //[facility] tiffany beckman.Que stDia gnost ics.c om/fa q/FAQ 177 (This link is being provi ded for infor rosario ramirez/ educa fartun l purpo ses only. ) Not Available [facility] [address] [place], [address], 11/04/2023 08:04:08 11/01/19 24 11/04/2023 JAIME W/ REFLE X JAIME titer 1:40 titer high A low level JAIME titer may be prese nt in pre-c linic al autoi mmune disea ses and twan l indiv idual s. Refer ence Range <1:40 Negat michael 1:40- 1:80 Low Antib jason Level >1:80 [place] josé Antib jason Level Not Available [facility] [address] [place] [address], [address], 11/04/2023 08:04:08 11/01/19 24 11/04/2023 JAIME W/ [...] s Inter natio nal Conse nsus on AJIME Patte rns (http s://d oi.or g/10. 1515/ [facility]- 2017- 0052) Not Available [facility] [address] [place] [address], [address], 11/04/2023 08:04:08 11/01/19 24 11/04/2023 JAIME REFLE X TESTI NG sm antibody <1.0 NEG ai <1.0 neg normal Not Available [facility] [address] [place] [address], [address], 11/04/2023 13:53:54 11/01/19 24 11/04/2023 JAIME REFLE X TESTI NG sm/bread molder Ab <1.0 NEG ai <1.0 neg normal Not Available [facility] [address] [place] [address], [address], 11/04/2023 13:53:54 11/01/19 24 11/04/2023 JAIME REFLE X TESTI NG ss-A Ab <1.0 NEG ai <1.0 neg normal Not Available [facility] [address] [place] [address], [address], 11/04/2023 13:53:54 11/01/19 24 11/04/2023 JAIME REFLE X TESTI NG ss-B Ab <1.0 NEG ai <1.0 neg normal Not Available [facility] [address] [place] [address], [address], 11/04/2023 13:53:54 11/01/19 24 11/04/2023 JAIME REFLE X TESTI NG scleroderma Ab <1.0 NEG ai <1.0 neg normal Not Available [facility] [address] [place] [address], [address], 11/04/2023 13:53:54 11/01/19 24 11/04/2023 ANTI- CCP anti-ccp <16 units normal Refer ence Range Negat michael: <20 Weak Posit michael: 20-39 Moder ate Posit michael: 40-59 Stron g Posit michael: >59 Not Available [facility] [address] [place] [address], [address], 11/04/2023 15:20:10 11/01/19 24 11/04/2023 JAIME REFLE X TESTI NG sm antibody <1.0 NEG ai <1.0 neg normal Not Available [facility] [address] [place] [address], [address], 11/12/2023 17:03:51 11/01/19 24 11/04/2023 JAIME REFLE X TESTI NG sm/bread molder Ab <1.0 NEG ai <1.0 neg normal Not Available [facility] [address] [place] [address], [address], 11/12/2023 17:03:51 11/01/19 24 11/04/2023 JAIME REFLE X TESTI NG ss-A Ab <1.0 NEG ai <1.0 neg normal Not Available [facility] [address] [place] [address], [address], 11/12/2023 17:03:51 11/01/19 24 11/04/2023 JAIME REFLE X TESTI NG ss-B Ab <1.0 NEG ai <1.0 neg normal Not Available [facility] [address] [place], [address], 11/12/2023 17:03:51 11/01/19 24 11/04/2023 JAIME REFLE X TESTI NG scleroderma Ab <1.0 NEG ai <1.0 neg normal Not Available [facility] [address] [place], [address], 11/12/2023 17:03:51 11/01/19 24 11/12/2023 JAIME REFLE X TESTI NG DNA (ds) Ab NEGATI VE negati ve normal Not Available [facility] [address] [place], [address], 11/12/2023 17:03:51 Result Notes None recorded. Procedures Surgical History Date Name Laterality Status Provider Name and Address Organization Details Recorded Time 05/24/19 20 hysterectomy completed Shelbie Almeida [facility] 04/02/2021 14:38:43 02/02/20 08 section completed [facility] 11/01/2023 14:23:15 fecal microbiota transplantation completed [facility] 11/01/2023 14:22:57 Imaging Results None recorded. Procedure Notes None recorded. Medical Equipment None Reported. Allergies No known drug allergies Medications Name Sig Start Date Stop Date Status Note LastModified by Organization Details LastModified Time cyclobenza tereso 10 mg tablet Take 1 tablet as needed by oral route. active Not Available Not Available No t Available prednisone 5 mg tablet take one po tid x 1 week; one po bid x 1 week; one po daily x 1 week 12/01 completed Not Available Not Available Not Available mirtazapin e 30 mg tablet Take 1 tablet every day by oral route. active pt no longer taking Not Available Not Available Not Available diazepam 10 mg tablet Take 1 tablet 3 times a day by oral route as needed. active pt no longer taking Not Available Not Available Not Available cholestyra mine (with sugar) 4 gram oral powder Take [...] in Arterial blood by Pulse oximetry Systolic And Diastolic Provider Name and Address Organization Details Last Updated DateTime 4 59742.1 5 g 92 /min 95 % 95 % 120/88 mm[Hg] Marcy [facility] 4 14:25:12 Date Recorded Body weight Heart rate Oxygen saturation Oxygen saturation in Arterial blood by Pulse oximetry Systolic And Diastolic Provider Name and Address Organization Details Last Updated DateTime 4 02154.5 6 g 110 /min 99 % 99 % 110/70 mm[Hg] Marcy [facility] 4 09:18:26 Date Recorded Body height Body mass index (BMI) Body weight Heart rate Systolic And Diastolic Provider Name and Address Organization Details Last Updated DateTime 04/02/2021 167.64 cm 26 kg/m2 77202.37 g 122 /min 117/79 mm[Hg] Shelbie Almeida [facility] 04/02/2021 14:36:50 Social History Question Answer Notes LastModified by [employer] Details LastModified Time Tobacco Smoking Status Former Smoker quit [facility] November 2022 [facility]/01/2023 14:22:02 What Was The Date Of Your Most Recent Tobacco Screening? 12/02/2023 Information not available 12/02/2023 What Is Your Relationship Status? Information not available 04/02/2021 How Much Tobacco Do You Smoke? 1 PPD Information not available 04/02/2021 How Many Years Have You Smoked Tobacco? 21 Information not available 04/02/2021 Sex: Unknown Functional Status Question Answer Note LastModified by [employer] Details LastModified Time Do you use any [...] Medical History Condition Response Anxiety Disorder Y Arthritis Y Difficulty Swallowing Y Blood Transfusion Y Acid Reflux (GERD) Y Cancer Y Headaches Y Depression Y GI Problems Y Gynecological HistoryNo gynecological history recorded. Obstetrics History GPAL:G 0 P 0 0 0 0 Past Encounters Encounter ID Performer Location Encounter Start Date Encounter Closed Date Diagnosis/Indication Diagnosis SNOMED-CT Code Diagnosis ICD10 Code Diagnosis IMO Codes Diagnosis Note [id number] JILLIAN CARMICHAEL MD [facility] [address] [place] [address], [place] [address] 1 04/02/2021 14:26:54 05/06/2021 13:45:15 Diarrhea 82399419 R19.7 Clostridio ides difficile infection 100537550 A04.72 Follow-up in 1 month to be sure she is improving. [id number] [place] [address] [place] [address], [address] [place] [address] 1 04/29/2021 09:10:35 04/30/2021 10:25:43 Diarrhea 16046619 R19.7 Clostridio ides difficile infection 982532409 A04.72 [id number] [place] [address] [place] [address], [place] [address] 1 06/10/2021 11:45:18 06/11/2021 08:01:48 Diarrhea 49066087 R19.7 maybe post infectious ibs vs ongoing infectioni d consult -- not able to be seen in [place] due to insurance issues Clostridio ides difficile infection 005749714 A04.72 recurrentj ust finished round 2 of dificidsom e improvemen tmore postprandi al diarrhea now [id number] NANCY MOHAMUD APRN [facility]HE[facility] [address] [place] [id number] 11/01/2023 13:46:56 11/02/2023 05:13:49 Fatigue 83512239 R53.83 worsening overallwil l assess thyroid antibodies Vitamin D deficiency 347 [address]03 E55.9 low of 16.9 Pain of mu ltiple joints 82910802 M25.50 without synovitis, no dactylitis , no joint effusionsn o skin changes or rashesnorm al skin turgorno swelling, redness, tenderness alonewill assess an arthritis panel Pruritic rash 49229026 L 28.2 recurring rashes [id number] NANCY MOHAMUD [facility] [address] [place] [id number] 12/02/2023 09:03:15 12/03/2023 04:47:12 Fatigue 75037287 R53.83 worsening overallneg ative thyroid antibodies Vitamin D deficiency 347 71287 E55.9 low of 16.9 Pruritic rash 32465466 L 28.2 recurring rashesnega tive work up Unable to balance 092486 006 R26.89 Health Concerns Section Related Observation LastModified by Organization Detai ls LastModified Time None Recorded Concern Status LastModified by Organization Details LastModified Time None Recorded Advance Directives Directive None Recorded Payers Insurance Date Sequence Insurance Name Policy Number Policy White Covered Member ID White Member ID Guarantor Name 12/03/2023 1 [facility] (MEDICAID REPLACEMENT - HMO) [id number] Alise Stein [id number] Alise Stein Notes Date Note Type Note Provider Name and Address Organization Details Recorded Time 04/02/2021 text/html History of IBS type symptoms with occasional diarrhea. Notes significant increase [...] day. No abdominal pain. JILLIAN CARMICHAEL MD [address] [place] [address], [phone], [facility] 05/06/2021 10:51:40 04/29/2021 text/html Visit today is being conducted via telehealth using both audio/video. The patient confirms that he/she is physically located in [place] at the time of this visit. Patient [...] diarrheanot eating>10x a day JILLIAN CARMICHAEL MD [address] [place] [address], [phone] 04/29/2021 16:23:36 06/10/2021 text/html Visit today is being conducted via telehealth using both audio/video. The patient confirms that he/she is physically located in [place] at the time of this visit. Patient [...] -- huy post prandial JILLIAN CARMICHAEL MD [address] [place] [address], [phone] 06/10/2021 15:49:43 11/01/2023 text/html ROS as noted in the HPI new patient here for initial evaluation and [...] negative; family history of MS NANCY MOHAMUD, STRAW H[employer] MACHINE OPERATOR [address] [place], [address], [facility] 11/30/2023 12:29:10 12/02/2023 text/html ROS as noted in the HPI f/u on pred trial without any findings; positive marker for lupus; [...] here with 1:40 mitotic spindle NANCY MOHAMUD, STRAW HAT MACHINE OPERATOR [address] [place], [address], [facility] 12/02/2023 09:49:12 OBGyn Episode No OBEpisode recorded.
--- OUTSIDE RECORDS SUMMARY | 2025-03-14 15:17 | XMS_ITS | Clinical Summary ---
Author Organization [facility] Address [address] [facility] [address] [place] [address] Care Team Providers Care Superintendent Drilling And Production Name Role Phone Jonathan Quispe MD Primary Care Provider [phone] Allergies No known active allergies Medications amoxicillin-clavula [...] of 3 - 19+ 3-dose series) 2004 HPV Vaccines (1 - 3-dose SCD M series) 2012 Depression Risk Screening 05/24/2024 SDOH Screening 05/24/2024 COVID-19 Vaccine (1 - 2023-2 5 season) 2025 Influenza Vaccine (#1) 2025 Zoster Vaccines (1 [...] patient's age to complete this topic Insurance [facility] Care Teams Superintendent Drilling And Production Relationship Specialty Start Date End Date Jonathan Quispe MD [address] Attn: LAQUITA Bustamante [phone] PCP - General Family Medicine 06/18/21
--- OUTSIDE RECORDS SUMMARY | 2025-03-14 15:18 | XMS_ITS | Clinical Summary ---
Author Organization Healthcare Address [address] [place] [address] Care Team Providers Care [employer]ator [employer] Name Role Phone Josefhuang Rafael Huang SANTIAGO Primary Care Provider [phone] Allergies No known active allergies Medications cyclobenzaprine (Flexeril) 5 MG tablet Take 1 tablet by mouth 3 times a day. 11/15/2024 Active verapamil ER (Veralan PM) 240 MG 24 hr capsule Take 1 capsule by mouth daily. 12/14/2024 Active Active Problems No known active problems Encounters Date Type Department Care Team Description 12/26/2024 2:15 PM EDT - 12/26/2024 11:59 PM EDT Hospital Encounter [facility] Radiology [address], [address] [place] [address] Neck pain Discharge Disposition: Home or Self Care 12/26/2024 12:30 PM EDT Consult [facility] Medicine Specialties [address] [place] [phone] ItaloMay R, CHASER APPRENTICE Positive JAIME (antinuclear antibody) (Primary Dx); Recurrent sinusitis; Polyarthralgia; Myalgia; Raynaud's phenomenon without gangrene; SS-A antibody positive; Eye pain, right; Neck pain 12/26/2024 Travel from Last 3 Months Family History Medical History Relation Name Comments [...] Years Used Date Smoking Tobacco: Former Cigarettes Smokeless Tobacco: Never Alcohol Use Standard Drinks/Week Comments No 0 (1 standard drink = 0.6 oz pur e alcohol) PHQ-2 Answer Date Recorded Patient Health Questionnaire-2 Score 0 12/26/2024 PHQ-9 Answer Date Recorded Patient Health Questionnaire-9 Score 0 12/26/2024 AUDIT-C Answer Date Recorded Q1: How often do you have a drink containing alc ohol? Never 12/26/2024 Average Number of Drinks Not on file 025 Frequency of Binge Drinking Not on file 09/2024 Comments Unknown Sex and Gender Information Value Date Recorded Sex Assigned at Not on file Legal Sex Female 7:38 PM EDT Gender Identity Not on file Sexual Orientation Not on file Last Filed Vital Signs Vital Sign Reading Time Taken Comments Blood Pressure 114/81 12/26/2024 12:39 PM EDT Pulse 100 12/26/2024 12:39 PM EDT Temperature 36.7 C (98.1 F) 12/26/2024 12:39 PM EDT Respiratory Rate 16 12/26/2024 12:39 PM EDT Oxygen Saturation 98% 12/26/2024 12:39 PM EDT Inhaled Oxygen Concentration - - Weight 74 kg (163 lb 2.3 oz) 12/26/2024 12:39 PM EDT Height 170.2 cm (5' 7 ) 12/26/2024 12:39 PM EDT Body Mass Index 25.55 12/26/2024 12:39 PM EDT Plan of Treatment Upcoming Encounters Date Type Department Care Team (Late st Contact Info) Description 05/09/2025 2:30 PM EST Office Visit [facility] [address] [place] [address] Italo, May R, CHASER APPRENTICE [address] [place] [address] Health Maintenance Due Date Last Done Comments [facility]-HIV Screening 1985 [facility]-/Child/Adol SDOH Screenings 1985 [facility]-Varicella Vaccines (1 of 2 - 13+ 2-dose series) 1998 [facility]- SDOH Screenings 11/18/2003 [facility]-Adult SDOH Screenings 11/18/2003 [facility]-DTaP,Tdap,and Td Vaccine s (1 - Tdap) 2004 [facility]-Hepatitis B Vaccines (1 of 3 - 19+ 3-dose series) 2004 HPV Vaccines (1 - 3-dose SCD M series) 2012 [id number] Vaccine (1 - season) 2025 [facility]-Influenza Vaccine (#1) 2025 [facility]-Depression Screening 12/26/2025 025, 12/26/2024 [facility]-Zoster Vaccines (1 of 2) 11/18/2035 [facility]-Hepatitis C Screening Completed 12/26/2019 [facility]-Obesity Intervention Completed 12/26/2024 [facility]-HIB Vaccines Aged Out No longer e [...] (6 to 49 Years) Aged Out No longer eligible b ased on patient's age to complete this topic [facility]-Rotavirus Vaccines Aged Out No lo nger eligible based on patient's age to complete this topic Procedures Procedure Name Priority Date/Time Associated Diagnosis Comments XR CERVICAL SPINE 2 OR 3 VIEWS Routine 12/26/2024 2:35 PM EDT Neck pain XR SACROILIAC JOINTS 3+ VIEWS Routine 12/26/2024 2:35 PM EDT Neck pain DNA ISOLATION AND HOLD (HLA) Routine 12/26/2024 2:12 PM EDT Eye pain, right ANCA VASCULITIS PROFILE (SO) Routine 12/26/2024 2:12 PM EDT Recurrent sinusitis Polyarthralgia ANTINUCLEAR ANTIBODY (JAIME) WITH HEP-2 SUBSTRATE, IGG BY IFA (SO) Routine 12/26/2024 2:12 PM EDT Polyarthralgia DOUBLE-STRANDED DNA (DSDNA) ANTIBODY, IGG BY IFA (SO) Routine 12/26/2024 2:12 PM EDT Polyarthralgia C3 COMPLEMENT Routine 12/26/2024 2:12 PM EDT Polyarthralgia C4 COMPLEMENT Routine 12/26/2024 2:12 PM EDT Polyarthralgia CBC WITH AUTO DIFFERENTIAL Routine 12/26/2024 2:12 PM EDT Polyarthralgia GREENBERG/COMMUNITY COORDINATOR (BARON) ANTIBODY, IGG (SO) Routine 12/26/2024 2:12 PM EDT Polyarthralgia EXTRACTABLE NUCLEAR ANTIGEN ANTIBODIES (SSA 52, SSA 60, AND SSB) (SO) Routine 12/26/2024 2:12 PM EDT Polyarthralgia GREENBERG (BARON) ANTIBODY, IGG (SO) Routine 12/26/2024 2:12 PM EDT Polyarthralgia THYROID PEROXIDASE ANTIBODY Routine 12/26/2024 2:12 PM EDT Polyarthralgia TSH Routine 12/26/2024 2:12 PM EDT Polyarthralgia CREATINE KINASE, TOTAL, PLASMA Routine 12/26/2024 2:12 PM EDT Myalgia Raynaud's phenomenon without gangrene ALDOLASE Routine 12/26/2024 2:12 PM EDT Myalgia Raynaud's phenomenon without gangrene BETA-2 GLYCOPROTEIN 1 ANTIBODY, IGA (SO) Routine 12/26/2024 2:12 PM EDT Raynaud's phenomenon without gangrene Positive JAIME (antinuclear antibody) ANTI-BETA 2 GLYCOPROTEIN, IGG AND IGM Routine 12/26/2024 2:12 PM EDT Raynaud's phenomenon without gangrene Positive JAIME (antinuclear antibody) CARDIOLIPIN ANTIBODY, IGA (SO) Routine 12/26/2024 2:12 PM EDT Raynaud's phenomenon without gangrene Positive JAIME (antinuclear antibody) ANTICARDIOLIPIN Routine 12/26/2024 2:12 PM EDT Raynaud's phenomenon without gangrene Positive JAIME (antinuclear antibody) LUPUS ANTICOAGULANT PROFILE Routine 12/26/2024 2:12 PM EDT Raynaud's phenomenon without gangrene Positive JAIME (antinuclear antibody) RPR WITH REFLEX TO TITER Routine 12/26/2024 2:12 PM EDT Raynaud's phenomenon without gangrene Positive JAIME (antinuclear antibody) HLA B27 TYPING Routine 12/26/2024 2:12 PM EDT Eye pain, right RHEUMATOID FACTOR, PLASMA Routine 12/26/2024 2:12 PM EDT Polyarthralgia CYCLIC CITRUL PEPTIDE ANTIBODY IGG Routine 12/26/2024 2:12 PM EDT Polyarthralgia URINALYSIS MICROSCOPIC FOR UA REFLEX Routine 12/26/2024 2:06 PM EDT Polyarthralgia PROTEIN, URINE, RANDOM WITH CREATININE Routine 12/26/2024 2:06 PM EDT Polyarthralgia URINALYSIS WITH REFLEX MICROSCOPIC Routine 12/26/2024 2:06 PM EDT Polyarthralgia HEPATITIS C ANTIBODY W/REFLEX TO HCV QUANT PCR Routine 12/26/2019 11:18 AM EDT from Last 3 Months or Most Recently Relevant to Health Maintenance Results * XR Sacroiliac Joints 3+ Views (12/26/2024 2:35 PM EDT) Anatomical Region Laterality Modality Body, Spine, Pelvis Digital Radi ography Impressions 12/26/2024 2:50 PM EDT 1. No findings of inflammatory arthropathy involving the cervical spine or sacroiliac joints. 2. Reversal of normal cervical lordosis without degenerative disc changes.. CRITICAL RESULT: No. COMMUNICATION: Per this written report. Drafted by Abel Beaver MD on 12/26/2024 2:48 PM Final report signed by Abel Beaver MD on 12/26/2024 2:50 PM Narrative 12/26/2024 2:50 PM EDT CLINICAL INDICATION: ? sacroiliitis TECHNIQUE: XR SACROILIAC JOINTS 3+ VIEWS, XR CERVICAL SPINE 2 OR 3 VIEWS COMPARISON: None. FINDINGS: 3 views of the cervical spine show reversal of normal cervical lordosis centered at C4-C5. Disc height in vertebral alignment are normal. No erosive changes or inflammatory bone formation. Prevertebral soft tissues are normal. No fracture or bone destruction. Lung apices are normal. 3 views of the sacroiliac joints show normal joint space. No erosive changes or inflammatory bone formation. No fracture or bone destruction. Procedure Note Abel Beaver MD - 12/26/2024 CLINICAL INDICATION: ? sacroiliitis TECHNIQUE: XR SACROILIAC JOINTS 3+ VIEWS, XR CERVICAL SPINE 2 OR 3 VIEWS COMPARISON: None. FINDINGS: 3 views of the cervical spine show reversal of normal cervical lordosiscentered at C4-C5. Disc height in vertebral alignment are normal. Noerosive changes or inflammatory bone formation. Prevertebral soft tissuesare normal. No fracture or bone destruction. Lung apices are normal. 3 views of the sacroiliac joints show normal joint space. No erosivechanges or inflammatory bone formation. No fracture or bone destruction. IMPRESSION: 1.No findings of inflammatory arthropathy involving the cervical spine orsacroiliac joints. 2.Reversal of normal cervical lordosis without degenerative discchanges.. CRITICAL RESULT: No. COMMUNICATION: Per this written report. Drafted by Abel Beaver MD on 12/26/2024 2:48 PM Final report signed by Abel Beaver MD on 12/26/2024 2:50 PM may Italo CHASER APPRENTICE IMG XR PROCEDURES Final Res ult * XR Cervical Spine 2 or 3 Views (12/26/2024 2:35 PM EDT) Anatomical Region Laterality Modality Spine, C-spine Digital Radiogra phy Impressions 12/26/2024 2:50 PM EDT 1. No findings of inflammatory arthropathy involving the cervical spine or sacroiliac joints. 2. Reversal of normal cervical lordosis without degenerative disc changes.. CRITICAL RESULT: No. COMMUNICATION: Per this written report. Drafted by Abel Beaver MD on 12/26/2024 2:48 PM Final report signed by Abel Beaver MD on 12/26/2024 2:50 PM Narrative 12/26/2024 2:50 PM EDT CLINICAL INDICATION: ? sacroiliitis TECHNIQUE: XR SACROILIAC JOINTS 3+ VIEWS, XR CERVICAL SPINE 2 OR 3 VIEWS COMPARISON: None. FINDINGS: 3 views of the cervical spine show reversal of normal cervical lordosis centered at C4-C5. Disc height in vertebral alignment are normal. No erosive changes or inflammatory bone formation. Prevertebral soft tissues are normal. No fracture or bone destruction. Lung apices are normal. 3 views of the sacroiliac joints show normal joint space. No erosive changes or inflammatory bone formation. No fracture or bone destruction. Procedure Note Abel Beaver MD - 12/26/2024 CLINICAL INDICATION: ? sacroiliitis TECHNIQUE: XR SACROILIAC JOINTS 3+ VIEWS, XR CERVICAL SPINE 2 OR 3 VIEWS COMPARISON: None. FINDINGS: 3 views of the cervical spine show reversal of normal cervical lordosiscentered at C4-C5. Disc height in vertebral alignment are normal. Noerosive changes or inflammatory bone formation. Prevertebral soft tissuesare normal. No fracture or bone destruction. Lung apices are normal. 3 views of the sacroiliac joints show normal joint space. No erosivechanges or inflammatory bone formation. No fracture or bone destruction. IMPRESSION: 1.No findings of inflammatory arthropathy involving the cervical spine orsacroiliac joints. 2.Reversal of normal cervical lordosis without degenerative discchanges.. CRITICAL RESULT: No. COMMUNICATION: Per this written report. Drafted by Abel Beaver MD on 12/26/2024 2:48 PM Final report signed by Abel Beaver MD on 12/26/2024 2:50 PM may R Italo PORTILLON IMG XR PROCEDURES Final Res ult * RPR With Reflex to Titer (12/26/2024 2:12 PM EDT) Pathologist [facility] Rapid Plasma Reagin Nonreactive Non Reactive 12/27/2024 3:06 AM EDT [facility] Blood Venous blood specimen / Unknown Venipuncture / Unknown 12/26/2024 2:12 PM EDT 12/26/2024 2:13 PM EDT may R Italo PORTILLON LAB BLOOD ORDERABLES Final Result [facility] [address] [place] [address] * ANCA Vasculitis Profile (12/26/2024 2:12 PM EDT) Pathologist [facility] Myeloperoxidase (MPO) Ab, IgG 0 0 - 19 AU/mL 12/28/2024 11:43 PM EDT [facility] ([employer]) Serine Proteinase 3 (PR3) Ab, IgG 0 0 - 19 AU/mL 12/28/2024 11:43 PM EDT [facility] ([employer]) ANCA IFA Titer <1:20 <1:20 12/28/2024 11:43 PM EDT [facility] ([employer]) ANCA IFA Pattern None Detected None Detected 12/28/2024 11:43 PM EDT [facility] ([employer]) Blood Venous blood specimen / Unknown Venipuncture / Unknown 12/26/2024 2:12 PM EDT 12/26/2024 2:13 PM EDT Narrative [facility] ([employer]) - 12/28/2024 11:43 PM EDT INTERPRETIVE INFORMATION: Myeloperoxidase Abs, IgG 19 AU/mL or Less ......... Negative 20-25 AU/mL .............. Equivocal 26 AU/mL or Greater ...... Positive Approximately 90% of patients with a P-ANCA pattern by IFA have antibodies specific for MPO. INTERPRETIVE INFORMATION: Serine Proteinase 3, IgG 19 AU/mL or Less ........ Negative 20-25 AU/mL ............. Equivocal 26 AU/mL or Greater ..... Positive Approximately 85% of patients with a C-ANCA pattern by IFA have antibodies specific for PR3. INTERPRETIVE INFORMATION: ANCA IFA Pattern Neutrophil Cytoplasmic Antibodies (C-ANCA = granular cytoplasmic staining, P-ANCA = perinuclear staining) are found in the serum of over 90 percent of patients with certain necrotizing systemic vasculitides, and usually in less than 5 percent of patients with collagen vascular disease or arthritis. Performed By: [facility] [address] [place] [address] Boat Oar Maker: Иван Lopez MD, PhD CLIA Number: [id number] may Italo [facility] LAB BLOOD ORDERABLES Final Result Performing Organization Address City/[facility] Co de Phone Number [facility] ([facility]) [address] [place] [id number] * DNA Isolation and Hold (HLA) (12/26/2024 2:12 PM EDT) Blood Venous blood specimen / Unknown Venipuncture / Unknown 12/26/2024 2:12 PM EDT 12/26/2024 2:13 PM EDT may Italo SANTIAGO LAB MOLECULAR DIAGNOSTICS O RDERABLES Final Result Performing Organization Address City/[facility]/ZIP Co de Phone Number [facility] [address] [place] [address], * Anti-Beta 2 Glycoprotein, IgG and IgM (12/26/2024 2:12 PM EDT) Anti-Beta 2 Glycoprotein 1, IgG <1.4 <20.0 U/mL 12/26/2024 8:48 PM EDT [facility] Anti-Beta 2 Glycoprotein IgG Interpretation Negative Negative 12/26/2024 8:48 PM EDT [facility] Anti-Beta 2 Glycoprotein 1, IgM <1.5 <20.0 U/mL 12/26/2024 8:48 PM EDT [facility] Anti-Beta 2 Glycoprotein IgM Interpretation Negative Negative 12/26/2024 8:48 PM EDT [facility] Blood Venous blood specimen / Unknown Venipuncture / Unknown 12/26/2024 2:12 PM EDT 12/26/2024 2:13 PM EDT [facility] LAB BLOOD ORDERABLES Final Result [facility] [address] [place] [address] * Beta-2 Glycoprotein 1 Antibody, IgA (12/26/2024 2:12 PM EDT) [id number] 1, IgA Antibody <10 <=20 KENYETTA 12/28/2024 3:16 PM EDT [facility] ([employer]) Serum 12/26/2024 2:12 PM EDT 12/26/2024 2:13 PM EDT Narrative [facility]) - 12/28/2024 3:16 PM EDT Performed By: [facility] [address] [place] [address] Boat Oar Maker: Иван Lopez MD, PhD CLIA Number: [id number] [facility] LAB BLOOD ORDERABLES Final Result Performing Organization Address City/[facility] Co de Phone Number [facility] ([employer]) [address] [place] [address] * Greenberg (BARON) Antibody, IgG (12/26/2024 2:12 PM EDT) Greenberg (BARON) Antibody, IgG 2 0 - 40 AU/mL 12/28/2024 2:53 PM EDT [facility] ([employer]) Serum 12/26/2024 2:12 PM EDT 12/26/2024 2:13 PM EDT Narrative [facility]) - 12/28/2024 2:53 PM EDT INTERPRETIVE INFORMATION: Greenberg (BARON) Antibody, IgG 29 AU/mL or Less ............. Negative 30 - 40 AU/mL ................ Equivocal 41 AU/mL or Greater .......... Positive Greenberg antibody is highly specific (greater than 90 percent) for systemic lupus erythematosus (SLE) but only occurs in 30-35 percent of SLE cases. The presence of antibodies to Greenberg has variable associations with SLE clinical manifestations. Performed By: [facility] [address] [place] [address] Boat Oar Maker: Иван Lopez MD, PhD CLIA Number: [id number] [facility] REF LAB BLOOD AND FLUID ORD Final Result Performing Organization Address City/[facility]/ZIP Co de Phone Number [facility] ([facility] [address] [place] [address] * Creatine Kinase (CK), Total (12/26/2024 2:12 PM EDT) Creatine Kinase, Plasma 66 37 - 168 U/L 12/26/2024 4:36 PM EDT [facility] Blood Venous blood specimen / Unknown Venipuncture / Unknown 12/26/2024 2:12 PM EDT 12/26/2024 2:13 PM EDT [facility] LAB BLOOD ORDERABLES Final Result [facility] [address] [place] [address] * ENAII (12/26/2024 2:12 PM EDT) SSA-52 (RO52) (BARON) Antibody, IgG 1 0 - 40 AU/mL 12/28/2024 2:53 PM EDT [facility] ([facility]) SSA-60 (RO60) (BARON) Antibody, IgG 0 0 - 40 AU/mL 12/28/2024 2:53 PM EDT [facility] ([facility]) SSB (LA) (BARON) Antibody, IgG 0 0 - 40 AU/mL 12/28/2024 2:53 PM EDT [facility] ([facility]) Blood Venous blood specimen / Unknown Venipuncture / Unknown 12/26/2024 2:12 PM EDT 12/26/2024 2:13 PM EDT Narrative [facility] ([facility]) - 12/28/2024 2:53 PM EDT INTERPRETIVE INFORMATION: SSA-52 (Ro52) (BARON) Antibody, IgG 29 AU/mL or Less ............. Negative 30 - 40 AU/mL ................ Equivocal 41 AU/mL or Greater .......... Positive SSA-52 (Ro52) and/or SSA-60 (Ro60) antibodies are associated with a diagnosis of Sjogren syndrome, systemic lupus erythematosus (SLE), and systemic sclerosis. SSA-52 antibody overlaps significantly with the major SSc-related antibodies. SSA-52 (Ro52) antibody occurs frequently in patients with inflammatory myopathies, often in the presence of interstitial lung disease. REFERENCE INTERVAL: SSA-60 (Ro60) (BARON) Antibody, IgG 29 AU/mL or Less ............. Negative 30 - 40 AU/mL ................ Equivocal 41 AU/mL or Greater .......... Positive INTERPRETIVE INFORMATION: SSB (La) (BARON) Ab, IgG 29 AU/mL or Less ............. Negative 30 - 40 AU/mL ................ Equivocal 41 AU/mL or Greater .......... Positive SSB (La) antibody is seen in 50-60% of Sjogren syndrome cases and is specific if it is the only BARON antibody present. 15-25% of patients with systemic lupus erythematosus (SLE) and 5-10% of patients with progressive systemic sclerosis (PSS) also have this antibody. Performed By: [facility] [address] [place] [address] Boat Oar Maker: Иван Lopez MD, PhD CLIA Number: [id number] may CHASER APPRENTICE LAB BLOOD ORDERABLES Final Result [facility] ([facility]) [address] [place] [address] * ENAI (12/26/2024 2:12 PM EDT) [facility] Greenberg/COMMUNITY COORDINATOR (BARON) Ab, IgG 2 0 - 19 Units 12/28/2024 4:33 PM EDT [facility] ([facility]) Blood Venous blood specimen / Unknown Venipuncture / Unknown 12/26/2024 2:12 PM EDT 12/26/2024 2:13 PM EDT Narrative [facility]) - 12/28/2024 4:33 PM EDT INTERPRETIVE INFORMATION: Greenberg/COMMUNITY COORDINATOR (BARON) Antibody, IgG 19 Units or Less ............. Negative 20 to 39 Units ............... Weak Positive 40 to 80 Units ............... Moderate Positive 81 Units or greater .......... Strong Positive Greenberg/COMMUNITY COORDINATOR antibodies are frequently seen in patients with mixed connective tissue disease (MCTD) and are also associated with other systemic autoimmune rheumatic diseases (SARDs) such as systemic lupus erythematosus (SLE), systemic sclerosis, and myositis. Antibodies targeting the Greenberg/COMMUNITY COORDINATOR antigenic complex also recognize Greenberg antigens, therefore, the Greenberg antibody response must be considered when interpreting these results. Performed By: [facility] [address] [place] [address] Boat Oar Maker: Иван Lopez MD, PhD CLIA Number: [id number] may Italo CHASER APPRENTICE LAB BLOOD ORDERABLES Final Result [facility] ([facility] [address] [place] [address] * Anticardiolipin IgG and IgM (12/26/2024 2:12 PM EDT) [facility] IgG Anticardiolipin <1.60 <20.00 GPL Units/mL 12/26/2024 8:48 PM EDT [facility] Anticardiolipin IgG Interpretation Negative Negative 12/26/2024 8:48 PM EDT [facility] IgM Anticardiolipin <1.50 <20.00 MPL Units/mL 12/26/2024 8:48 PM EDT [facility] Anticardiolipin IgM Interpretation Negative Negative 12/26/2024 8:48 PM EDT [facility] Blood Venous blood specimen / Unknown Venipuncture / Unknown 12/26/2024 2:12 PM EDT 12/26/2024 2:13 PM EDT [facility] Final Result Performing Organization Address City/[facility]/ZIP Co de Phone Number [facility] [address] [place] [address] * HLA B27 Typing (12/26/2024 2:12 PM EDT) Blood Venous blood specimen / Unknown Venipuncture / Unknown 12/26/2024 2:12 PM EDT 12/26/2024 2:13 PM EDT may R Italo CHASER APPRENTICE LAB BLOOD ORDERABLES Final Result Performing Organization Address [facility] Co de Phone Number [facility] [address] [place] [address], * Thyroid Peroxidase Antibody (12/26/2024 2:12 PM EDT) Thyroid Peroxidase Antibody <5 <=8 IU/mL 12/26/2024 5:[address] [facility] Blood Venous blood specimen / Unknown Venipuncture / Unknown 12/26/2024 2:12 PM EDT 12/26/2024 2:13 PM EDT may Italo CHASER APPRENTICE LAB BLOOD ORDERABLES Final Result Performing Organization Address City/[facility] Co de Phone Number [facility] [address] [place] [address] * Cyclic Citrul Peptide Antibody IgG (12/26/2024 2:12 PM EDT) Cyclic Citrul Peptide Antibody IgG <5.0 <=5.0 U/mL 12/26/2024 5:03 PM EDT [facility] Blood Venous blood specimen / Unknown Venipuncture / Unknown 12/26/2024 2:12 PM EDT 12/26/2024 2:13 PM EDT May Italo CHASER APPRENTICE LAB BLOOD ORDERABLES Final Result Performing Organization Address City/[facility]/ZIP Co de Phone Number [facility] [address] [place] [address] * Double-Stranded DNA (dsDNA) Antibody, IgG by IFA (12/26/2024 2:12 PM EDT) Double-Strande d DNA (dsDNA) Ab IgG IFA <1:10 <1:10 12/30/2024 4:40 AM EDT [facility] ([facility]) Blood Venous blood specimen / Unknown Venipuncture / Unknown 12/26/2024 2:12 PM EDT 12/26/2024 2:13 PM EDT Narrative [facility] ([facility]) - 12/30/2024 4:40 AM EDT INTERPRETIVE INFORMATION: Double-Stranded DNA (dsDNA) Antibody, IgG by IFA (using Crithidia luciliae) Positivity for anti-double stranded DNA (anti-dsDNA) IgG antibody is a diagnostic criterion of systemic lupus erythematosus (SLE). The presence of the anti-dsDNA IgG antibody is identified by IFA titer (Crithidia luciliae indirect fluorescent test [ANTHONY]). ANTHONY is highly specific for SLE with a sensitivity of 50-60 percent. Some patients with early or inactive SLE may be positive for anti-dsDNA IgG by HENRY but negative by ANTHONY. If the ANTHONY result is negative but the patient has a positive HENRY and clinical suspicion remains, consider antinuclear antibody (JAIME) testing by IFA. Additional information and recommendations for testing may be found at [email or web address] Performed By: [facility] [address] [place] [id number] Boat Oar Maker: Иван Lopez MD, PhD CLIA Number: [id number] May Italo CHASER APPRENTICE LAB BLOOD ORDERABLES Final Result Performing Organization Address City/[facility]/ZIP Co de Phone Number [facility] ([facility]) [address] [place] [address] * Aldolase (12/26/2024 2:12 PM EDT) Pathologist [facility] ALDOLASE 4.1 1.2 - 7.6 U/L 12/28/2024 3:20 AM EDT [facility] ([facility] Blood Venous blood specimen / Unknown Venipuncture / Unknown 12/26/2024 2:12 PM EDT 12/26/2024 2:13 PM EDT Narrative [facility] ([facility]) - 12/28/2024 3:20 AM EDT REFERENCE INTERVAL: Aldolase Access complete set of age- and/or gender-specific reference intervals for this test in the [facility] ([employer]). Performed By: [facility] [address] [place] [address] Boat Oar Maker: Иван Lopez MD, PhD CLIA Number: [id number] May Italo [facility] LAB BLOOD ORDERABLES Final Result Performing Organization Address [facility] Co de Phone Number [facility] ([facility]) [address] [place] [address] * Cardiolipin antibody, IgA (12/26/2024 2:12 PM EDT) [facility] Cardiolipin Antibody IgA <10 <=11 APL 12/28/2024 2:59 PM EDT [facility] ([facility]) Blood Venous blood specimen / Unknown Venipuncture / Unknown 12/26/2024 2:12 PM EDT 12/26/2024 2:13 PM EDT Narrative [facility] ([facility]) - 12/28/2024 2:59 PM EDT INTERPRETIVE INFORMATION: Cardiolipin Antibodies, IgA <=11 APL: Negative 12-19 APL: Indeterminate 20-80 APL: Low to Moderately Positive 81 APL or above: High Positive Performed By: [facility] [address] [place] [address] Boat Oar Maker: Иван Lopez MD, PhD CLIA Number: [id number] us May R Italo [facility] LAB BLOOD ORDERABLES Final Result [facility] [address] [place] [id number] * Lupus Anticoagulant Profile (12/26/2024 2:12 PM EDT) Lupus Anticoagulant Result Lupus anticoagulant (LA) not detected by either LA-sensitive aPTT or dRVVT assays. If clinical suspicion for antiphospholipid syndrome is high, consider testing for antibodies against cardiolipin and [id number] n I. 12/29/2024 10:14 AM EDT [facility] aPTT Lupus Anticoagulant Sensitive 38.7 <=41.0 sec LAB COAGULATION METHOD 12/29/2024 10:14 AM EDT [facility] DRVVT Screen 39.6 sec LAB COAGULATION METHOD 12/29/2024 10:14 AM EDT [facility] DRVVT Screen Ratio 1.05 <1.20 LAB COAGULATION METHOD 12/29/2024 10:14 AM EDT [facility] Blood Venous blood specimen / Unknown Venipuncture / Unknown 12/26/2024 2:12 PM EDT 12/26/2024 2:13 PM EDT May R Italo [facility] LAB BLOOD ORDERABLES Final Result [facility] [address] [place] [address] * CBC and Differential (12/26/2024 2:12 PM EDT) WBC Count 9.07 3.70 - 10.30 10*3/uL LAB HEMATOLOGY METHOD 12/26/2024 3:41 PM EDT [facility] RBC Count 4.81 3.90 - 5.20 10*6/uL LAB HEMATOLOGY METHOD 12/26/2024 3:41 PM EDT [facility] HGB 14.0 11.2 - 15.7 g/dL LAB HEMATOLOGY METHOD 12/26/2024 3:41 PM EDT [facility] HCT 42.7 34.0 - 45.0 % LAB HEMATOLOGY METHOD 12/26/2024 3:41 PM EDT [facility] Platelet Count 309 155 - 369 10*3/uL LAB HEMATOLOGY METHOD 12/26/2024 3:41 PM EDT [facility] MCV 89 79 - 98 fL LAB HEMATOLOGY METHOD 12/26/2024 3:41 PM EDT [facility] MCH 29.1 26.0 - 32.0 pg LAB HEMATOLOGY METHOD 12/26/2024 3:41 PM EDT [facility] MCHC 32.8 30.7 - 35.5 g/dL LAB HEMATOLOGY METHOD 12/26/2024 3:41 PM EDT [facility] RDW 12.9 11.5 - 14.5 % LAB HEMATOLOGY METHOD 12/26/2024 3:41 PM EDT [facility] MPV 9.7 8.8 - 12.5 fL LAB HEMATOLOGY METHOD 12/26/2024 3:41 PM EDT [facility] nRBC 0.0 <=0.0 per 100 WBCs LAB HEMATOLOGY METHOD 12/26/2024 3:41 PM EDT [facility] Differential Type Automated LAB HEMATOLOGY METHOD 12/26/2024 3:41 PM EDT [facility] Neutrophils % 60 % LAB HEMATOLOGY METHOD 12/26/2024 3:41 PM EDT [facility] Lymphocytes % 33 % LAB HEMATOLOGY METHOD 12/26/2024 3:41 PM EDT [facility] Monocytes % 4 % LAB HEMATOLOGY METHOD 12/26/2024 3:41 PM EDT [facility] Eosinophils % 2 % LAB HEMATOLOGY METHOD 12/26/2024 3:41 PM EDT [facility] Basophils % 1 % LAB HEMATOLOGY METHOD 12/26/2024 3:41 PM EDT [facility] Immature Granulocytes % 0 % LAB HEMATOLOGY METHOD 12/26/2024 3:41 PM EDT [facility] Neutrophils Absolute 5.38 1.60 - 6.10 10*3/uL LAB HEMATOLOGY METHOD 12/26/2024 3:41 PM EDT [facility] Lymphocytes Absolute 2.98 1.20 - 3.90 10*3/uL LAB HEMATOLOGY METHOD 12/26/2024 3:41 PM EDT [facility] Monocytes Absolute 0.40 0.30 - 0.90 10*3/uL LAB HEMATOLOGY METHOD 12/26/2024 3:41 PM EDT [facility] Eosinophils Absolute 0.22 0.00 - 0.50 10*3/uL LAB HEMATOLOGY METHOD 12/26/2024 3:41 PM EDT [facility] Basophils Absolute 0.05 0.00 - 0.10 10*3/uL LAB HEMATOLOGY METHOD 12/26/2024 3:41 PM EDT [facility] Immature Granulocytes Absolute 0.04 0.00 - 0.06 10*3/uL LAB HEMATOLOGY METHOD 12/26/2024 3:41 PM EDT [facility] Blood Venous blood specimen / Unknown Venipuncture / Unknown 12/26/2024 2:12 PM EDT 12/26/2024 2:13 PM EDT Narrative [facility] - 12/26/2024 3:41 PM EDT Therapeutic decision making should be based on absolute values, rather than percentages. May [facility] CHASER APPRENTICE LAB BLOOD ORDERABLES Final Result Performing Organization Address City/[facility]/ZIP Co de Phone Number [facility] [address] [place] [address] * Rheumatoid Factor, Plasma (12/26/2024 2:12 PM EDT) Rheumatoid Factor, Plasma <10 <14 IU/mL 12/26/2024 4:[address] [facility] Blood Venous blood specimen / Unknown Venipuncture / Unknown 12/26/2024 2:12 PM EDT 12/26/2024 2:13 PM EDT May R Italo CHASER APPRENTICE LAB BLOOD ORDERABLES Final Result [facility] [address] [place] [address] * (ABNORMAL) C3 Complement (12/26/2024 2:12 PM EDT) C3 Complement 188(H) 84 - 166 mg/dL 12/26/2024 4:27 PM EDT [facility] Blood Venous blood specimen / Unknown Venipuncture / Unknown 12/26/2024 2:12 PM EDT 12/26/2024 2:13 PM EDT [facility] Final Result [facility] [address] [place] [address] * C4 Complement (12/26/2024 2:12 PM EDT) C4 Complement 35 13 - 36 mg/dL 12/26/2024 4:[address] [facility] Blood Venous blood specimen / Unknown Venipuncture / Unknown 12/26/2024 2:12 PM EDT 12/26/2024 2:13 PM EDT May [facility] LAB BLOOD ORDERABLES Final Result Performing Organization Address [facility] [place] [address] * Antinuclear Antibody (JAIME), HEp-2, IgG (12/26/2024 2:12 PM EDT) JAIME INTERPRETIVE COMMENT See Note 12/30/2024 12:03 AM EDT [facility] ([employer]) Anti Nuc Ab Screen <1:80 <1:80 12/30/2024 12:03 AM EDT [facility] ([employer]) Blood Venous blood specimen / Unknown Venipuncture / Unknown 12/26/2024 2:12 PM EDT 12/26/2024 2:13 PM EDT Narrative [facility] ([employer]) - 12/30/2024 12:03 AM EDT Clinical Interpretation: Antinuclear antibodies by IFA negative for homogeneous, speckled, nucleolar, centromere, and nuclear dots patterns. Cytoplasmic antibodies by IFA negative for reticular/AMA, discrete/GW body-like, polar/golgi-like, rods and rings, and cytoplasmic speckled patterns. INTERPRETIVE INFORMATION: JAIME Interpretive Comment Presence of antinuclear antibodies (JAIME) is a hallmark feature of systemic autoimmune rheumatic diseases (SARD). However, JAIME lacks diagnostic specificity and is associated with a variety of diseases (cancers, autoimmune, infectious, and inflammatory conditions) and may also occur in healthy individuals in varying prevalence. The lack of diagnostic specificity requires confirmation of positive JAIME by more specific serologic tests. JAIME (nuclear reactivity) positive patterns reported include centromere, homogeneous, nuclear dots, nucleolar, or speckled. JAIME (cytoplasmic reactivity) positive patterns reported include reticular/AMA, discrete/GW body-like, polar/golgi-like, cytoplasmic speckled or rods and rings. All positive patterns are reported to endpoint titers (1:2560). Reported patterns may help guide differential diagnosis, although they may not be specific for individual antibodies or diseases. Mitotic staining patterns not reported. Negative results do not necessarily rule out SARD. Performed By: [facility] [address] [place] [address] Boat Oar Maker: Иван Lopez MD, PhD CLIA Number: [id number] May R [facility] LAB BLOOD ORDERABLES Final Result Performing Organization Address City/[facility] Co de Phone Number [facility] ([facility]) [address] [place] [address] * Thyroid Stimulating Hormone, Plasma (12/26/2024 2:12 PM EDT) Thyroid Stimulating Hormone, Plasma 0.58 0.40 - 4.20 uIU/mL 12/26/2024 4:36 PM EDT [facility] Blood Venous blood specimen / Unknown Venipuncture / Unknown 12/26/2024 2:12 PM EDT 12/26/2024 2:13 PM EDT Narrative [facility] - 12/26/2024 4:36 PM EDT Trimester Specific Ranges TSH ( IU/mL) 1st Trimester 0.1 - 3.0 2nd Trimester 0.19 - 4.06 3rd Trimester 0.3 - 3.7 [facility] LAB BLOOD ORDERABLES Final Result [facility] [address] [place] [facility] [place] [address] * Urinalysis Microscopic Examination (12/26/2024 2:06 PM EDT) Urine Urine specimen obtained by clean catch procedure / Unknown Non-blood Collection / Unknown 12/26/2024 2:06 PM EDT 12/26/2024 2:06 PM EDT May R Italo [facility] LAB URINE ORDERABLES Final Result Performing Organization Address [facility]/ZIP Co de Phone Number [facility] [address] [place] [address] * Protein, Random, Urine with Creatinine (12/26/2024 2:06 PM EDT) Protein, Urine 7 mg/dL 12/26/2024 3:29 PM EDT [facility] Creatinine, Urine 103 mg/dL 12/26/2024 3:29 PM EDT [facility] Protein/Creatin ine Ratio 0.1 mg/mg Creat 12/26/2024 3:29 PM EDT [facility] Urine Urine specimen obtained by clean catch procedure / Unknown Non-blood Collection / Unknown 12/26/2024 2:06 PM EDT 12/26/2024 2:06 PM EDT May R Italo [facility] LAB URINE ORDERABLES Final Result Performing Organization Address [facility] Co de Phone Number [facility] [address] [place] [address] * (ABNORMAL) Urinalysis with reflex microscopic (Culture NOT Included) (12/26/2024 2:06 PM EDT) Color, Urine Yellow LAB URINALYSIS - AUTOMATED METHOD 12/26/2024 3:51 PM EDT [facility] Clarity, Urine Clear LAB URINALYSIS - AUTOMATED METHOD 12/26/2024 3:51 PM EDT [facility] Spec [place], Urine 1.012 1.005 - 1.030 LAB URINALYSIS - AUTOMATED METHOD 12/26/2024 3:51 PM EDT [facility] pH, Urine 6.0 5.0 - 8.0 LAB URINALYSIS - AUTOMATED METHOD 12/26/2024 3:51 PM EDT [facility] Protein, Urine Negative Negative mg/dL LAB URINALYSIS - AUTOMATED METHOD 12/26/2024 3:51 PM EDT [facility] Glucose, Urine Negative Negative mg/dL LAB URINALYSIS - AUTOMATED METHOD 12/26/2024 3:51 PM EDT [facility] Ketones, Urine Negative Negative mg/dL LAB URINALYSIS - AUTOMATED METHOD 12/26/2024 3:51 PM EDT [facility] Blood, Urine Small(A) Negative LAB URINALYSIS - AUTOMATED METHOD 12/26/2024 3:51 PM EDT [facility] Bilirubin, Urine Negative Negative LAB URINALYSIS - AUTOMATED METHOD 12/26/2024 3:51 PM EDT [facility] Urobilinogen, Urine 0.2 0.2 to 1.0 mg/dL LAB URINALYSIS - AUTOMATED METHOD 12/26/2024 3:51 PM EDT [facility] Leukocytes, Urine Negative Negative LAB URINALYSIS - AUTOMATED METHOD 12/26/2024 3:51 PM EDT [facility] Nitrite, Urine Negative Negative LAB URINALYSIS - AUTOMATED METHOD 12/26/2024 3:51 PM EDT [facility] RBC, Urine 1 0 to 3 /HPF LAB URINALYSIS - AUTOMATED METHOD 12/26/2024 3:51 PM EDT [facility] WBC, Urine 0 - 5 0 to 5 /HPF LAB URINALYSIS - AUTOMATED METHOD 12/26/2024 3:51 PM EDT [facility] Squamous Epithelial Cells 0 - 2 0 to 5 /HPF LAB URINALYSIS - AUTOMATED METHOD 12/26/2024 3:51 PM EDT [facility] Hyaline Casts 0 - 2 0 to 5 /LPF LAB URINALYSIS - AUTOMATED METHOD 12/26/2024 3:51 PM EDT [facility] Bacteria, Urine Negative Negative LAB URINALYSIS - AUTOMATED METHOD 12/26/2024 3:51 PM EDT [facility] Urine Urine specimen obtained by clean catch procedure / Unknown Non-blood Collection / Unknown 12/26/2024 2:06 PM EDT 12/26/2024 2:06 PM EDT may Italo [facility] LAB URINE ORDERABLES Final Result [facility] [address] [place] [address] * Hepatitis C Antibody (12/26/2019 11:18 AM EDT) Hepatitis C Antibody NEGATIVE Reference Range: Negative [facility] 12/26/2019 11:1 8 AM EDT 12/26/2019 12:49 PM EDT Ronal Wetzel MD LAB BLOOD ORDERABLES Final Result [facility] from Last 3 Months or Most Recently Relevant to Health Maintenance Insurance [facility] [email or web address] [facility] MEDICAID Care Teams Curator [employer] Relationship Specialty Start Date End Date Rafael Campos APRN [address] [place] [address] PCP - General 12/26/24
--- OUTSIDE RECORDS SUMMARY | 2025-03-14 15:18 | XMS_ITS | Clinical Summary ---
Author Organization [facility] [phone] Care Team Providers Care Regional Education Manager Name Role Phone Unavailable Primary Care Provider [...] 3-dose series) 2004 COVID-19 Vaccine ( - 2024-2 6 season) 2025 Influenza Vaccine (#1) 2025 Meningococcal B Vaccine Aged Out No l onger eligible based on patient's age to complete this topic Pneumococcal Vaccine 0-49 Aged Out No longer eligible based on patient's age to complete this topic
--- OUTSIDE RECORDS SUMMARY | 2025-03-14 15:18 | XMS_ITS | Clinical Summary ---
Author Organization [facility] Address [address] [place] [address] Care Team Providers Care Hadoop Engineer Name Role Phone Jr Rafael Campos APRN [...] (1 - Tdap) 2004 PAP SMEAR 2006 ANNUAL PHYSICAL 03/21/2024 HEPATITIS C SCREENING 03/21/2024 INFLUENZA VACCINE 12/22/2024 Pneumococcal Vaccine 0-49 Aged Out No longer eligible based on patient's age to complete this topic Insurance [employer] MEDICAID [place] Care Teams Hadoop Engineer Relationship Specialty Start Date End Date Jr Rafael Campos APRN [address] [place] [address] PCP - General Nurse Practitioner 04/17/24
== END 2025-03-14 23:59 | disposition home or self-care (01) ==
LOC: LAB 14:40
PROVIDERS: PCP Nurse Practitioner Family; Visit Provider Internal Medicine
DX: I42.9 Cardiomyopathy, unspecified (principal); R79.89 Other specified abnormal findings of blood chemistry; E05.90 Thyrotoxicosis, unspecified without thyrotoxic crisis or storm; G90.A Postural orthostatic tachycardia syndrome [POTS]; I73.00 Raynaud's syndrome without gangrene; M32.9 Systemic lupus erythematosus, unspecified; D62 Acute posthemorrhagic anemia

== ENCOUNTER 2025-03-15 10:05 | Outpatient (CLI) | payer MEDICAID, SELFPAY ==
--- OUTSIDE RECORDS SUMMARY | 2025-03-15 10:42 | XMS_ITS | Clinical Summary ---
Author Organization Healthcare Address [address] [place] [address] Care Team Providers Care Domestic Technician Name Role Phone Josefhuang Rafael Huang SANTIAGO Primary Care Provider Allergies No known active allergies Medications cyclobenzaprine (Flexeril) 5 MG tablet Take 1 tablet by mouth 3 times a day. 11/15/2024 Active verapamil ER (Veralan PM) 240 MG 24 hr capsule Take 1 capsule by mouth daily. 12/14/2024 Active Active Problems No known active problems Encounters Date Type Department Care Team Description 12/26/2024 2:15 PM EDT - 12/26/2024 11:59 PM EDT Hospital Encounter [facility] Radiology [address], [address] [place] [address] Neck pain Discharge Disposition: Home or Self Care 12/26/2024 12:30 PM EDT Consult [facility] Medicine Specialties [address], [address] [place] [phone] ItaloMay R, BODY TRIMMER UPHOLSTERER Positive JAIME (antinuclear antibody) (Primary Dx); Recurrent [...] Description 05/09/2025 2:30 PM EST Office Visit [facility] Medicine Specialties [address] [place] [address] Italo, May R, BODY TRIMMER UPHOLSTERER [address] [place] [address] Health Maintenance Due Date Last Done Comments [facility]-HIV Screening 1985 [facility]-/Child/Adol SDOH Screenings 1985 [facility]-Varicella Vaccines (1 of 2 - 13+ 2-dose series) 1998 [facility]- SDOH Screenings 11/18/2003 [facility]-Adult SDOH Screenings 11/18/2003 [facility]-DTaP,Tdap,and Td Vaccine s (1 - Tdap) 2004 [facility]-Hepatitis B Vaccines (1 of 3 - 19+ 3-dose series) 2004 HPV Vaccines (1 - 3-dose SCD M series) 2012 [id number] Vaccine (1 - season) 2025 [facility]-Influenza Vaccine [...] DIFFERENTIAL Routine 12/26/2024 2:12 PM EDT Polyarthralgia GREENBERG/TRUCK REPAIR SUPERVISOR (BARON) ANTIBODY, IGG (SO) Routine 12/26/2024 2:12 [...] MD on 12/26/2024 2:50 PM may Italo BODY TRIMMER UPHOLSTERER IMG XR PROCEDURES Final Res ult * [...] to Titer (12/26/2024 2:12 PM EDT) Pathologist [facility] Rapid Plasma Reagin Nonreactive Non Reactive 12/27/2024 3:06 AM EDT [facility] Blood Venous blood specimen / Unknown Venipuncture / Unknown 12/26/2024 2:12 PM EDT 12/26/2024 2:13 PM EDT may R Italo PORTILLON LAB BLOOD ORDERABLES Final Result [facility] [address] [place] [address] * ANCA Vasculitis Profile (12/26/2024 2:12 PM EDT) Pathologist [facility] Myeloperoxidase (MPO) Ab, IgG 0 0 - 19 AU/mL 12/28/2024 11:43 PM EDT [facility] ([employer]) Serine Proteinase 3 (PR3) Ab, IgG 0 0 - 19 AU/mL 12/28/2024 11:43 PM EDT [facility] ([employer]) ANCA IFA Titer <1:20 <1:20 12/28/2024 11:43 PM EDT [facility] ([employer]) ANCA IFA Pattern None Detected None Detected 12/28/2024 11:43 PM EDT [facility] ([employer]) Blood Venous blood specimen / Unknown Venipuncture / Unknown 12/26/2024 2:12 PM EDT 12/26/2024 2:13 PM EDT Narrative [facility] ([employer]) - 12/28/2024 11:43 PM EDT INTERPRETIVE INFORMATION: [...] collagen vascular disease or arthritis. Performed By: [facility] [address] [place] [address] External Relations Director: Иван Lopez MD, PhD CLIA Number: [id number] may Italo [facility] LAB BLOOD ORDERABLES Final Result Performing Organization Address City/[facility] Co de Phone Number [facility] ([facility]) [address] [place] [id number] * DNA Isolation and Hold (HLA) (12/26/2024 2:12 PM EDT) Blood Venous blood specimen / Unknown Venipuncture / Unknown 12/26/2024 2:12 PM EDT 12/26/2024 2:13 PM EDT may Italo SANTIAGO LAB MOLECULAR DIAGNOSTICS O RDERABLES Final Result Performing Organization Address City/[facility]/ZIP Co de Phone Number [facility] [address] [place] [address], * Anti-Beta 2 Glycoprotein, IgG and IgM (12/26/2024 2:12 PM EDT) Anti-Beta 2 Glycoprotein 1, IgG <1.4 <20.0 U/mL 12/26/2024 8:48 PM EDT [facility] Anti-Beta 2 Glycoprotein IgG Interpretation Negative Negative 12/26/2024 8:48 PM EDT [facility] Anti-Beta 2 Glycoprotein 1, IgM <1.5 <20.0 U/mL 12/26/2024 8:48 PM EDT [facility] Anti-Beta 2 Glycoprotein IgM Interpretation Negative Negative 12/26/2024 8:48 PM EDT [facility] Blood Venous blood specimen / Unknown Venipuncture / Unknown 12/26/2024 2:12 PM EDT 12/26/2024 2:13 PM EDT May [facility] LAB BLOOD ORDERABLES Final Result [facility] [address] [place] [address] * Beta-2 Glycoprotein 1 Antibody, IgA (12/26/2024 2:12 PM EDT) [id number] 1, IgA Antibody <10 <=20 KENYETTA 12/28/2024 3:16 PM EDT [facility] ([employer]) Serum 12/26/2024 2:12 PM EDT 12/26/2024 2:13 PM EDT [facility]ative [facility]) - 12/28/2024 3:16 PM EDT Performed By: [facility] [address] [place] [address] External Relations Director: Иван Lopez MD, PhD CLIA Number: [id number] May [facility] LAB BLOOD ORDERABLES Final Result Performing Organization Address City/[facility] Co de Phone Number [facility] ([employer]) [address] [place] [address] * Greenberg (BARON) Antibody, IgG (12/26/2024 2:12 PM EDT) Greenberg (BARON) Antibody, IgG 2 0 - 40 AU/mL 12/28/2024 2:53 PM EDT [facility] ([employer]) Serum 12/26/2024 2:12 PM EDT 12/26/2024 2:13 PM EDT Narrative [facility]) - 12/28/2024 2:53 PM EDT INTERPRETIVE INFORMATION: [...] associations with SLE clinical manifestations. Performed By: [facility] [address] [place] [address] External Relations Director: Иван Lopez MD, PhD CLIA Number: [id number] May [facility] REF LAB BLOOD AND FLUID ORD Final Result Performing Organization Address City/[facility]/ZIP Co de Phone Number [facility] [address] [place] [address] * Creatine Kinase (CK), Total (12/26/2024 2:12 PM EDT) Creatine Kinase, Plasma 66 37 - 168 U/L 12/26/2024 4:36 PM EDT [facility] Blood Venous blood specimen / Unknown Venipuncture / Unknown 12/26/2024 2:12 PM EDT 12/26/2024 2:13 PM EDT May [facility] LAB BLOOD ORDERABLES Final Result [facility] [address] [place] [address] * ENAII (12/26/2024 2:12 PM EDT) SSA-52 (RO52) (BARON) Antibody, IgG 1 0 - 40 AU/mL 12/28/2024 2:53 PM EDT [facility]) SSA-60 (RO60) (BARON) Antibody, IgG 0 0 - 40 AU/mL 12/28/2024 2:53 PM EDT [facility] ([facility]) SSB (LA) (BARON) Antibody, IgG 0 0 - 40 AU/mL 12/28/2024 2:53 PM EDT [facility] ([facility]) Blood Venous blood specimen / Unknown Venipuncture [...] (PSS) also have this antibody. Performed By: [facility] [address] [place] [address] External Relations Director: Иван Lopez MD, PhD CLIA Number: [id number] may BODY TRIMMER UPHOLSTERER LAB BLOOD ORDERABLES Final Result [facility] ([facility]) [address] [place] [address] * ENAI (12/26/2024 2:12 PM EDT) [facility] Greenberg/TRUCK REPAIR SUPERVISOR (BARON) Ab, IgG 2 0 - 19 Units 12/28/2024 4:33 PM EDT [facility] ([facility]) Blood Venous blood specimen / Unknown Venipuncture / Unknown 12/26/2024 2:12 PM EDT 12/26/2024 2:13 PM EDT Narrative [facility] FAM) - 12/28/2024 4:33 PM EDT INTERPRETIVE INFORMATION: Greenberg/TRUCK REPAIR SUPERVISOR (BARON) Antibody, IgG 19 Units or Less ............. Negative 20 to 39 Units ............... Weak Positive 40 to 80 Units ............... Moderate Positive 81 Units or greater .......... Strong Positive Greenberg/TRUCK REPAIR SUPERVISOR antibodies are frequently seen in patients with mixed connective tissue disease (MCTD) and are also associated with other systemic autoimmune rheumatic diseases (SARDs) such as systemic lupus erythematosus (SLE), systemic sclerosis, and myositis. Antibodies targeting the Greenberg/TRUCK REPAIR SUPERVISOR antigenic complex also recognize Greenberg antigens, therefore, the Greenberg antibody response must be considered when interpreting these results. Performed By: [facility] [address] [place] [address] External Relations Director: Иван Lopez MD, PhD CLIA Number: [id number] may Italo BODY TRIMMER UPHOLSTERER LAB BLOOD ORDERABLES Final Result [facility] ([facility] [address] [place] [address] * Anticardiolipin IgG and IgM (12/26/2024 2:12 PM EDT) [facility] IgG Anticardiolipin <1.60 <20.00 GPL Units/mL 12/26/2024 8:48 PM EDT [facility] Anticardiolipin IgG Interpretation Negative Negative 12/26/2024 8:48 PM EDT [facility] IgM Anticardiolipin <1.50 <20.00 MPL Units/mL 12/26/2024 8:48 PM EDT [facility] Anticardiolipin IgM Interpretation Negative Negative 12/26/2024 8:48 PM EDT [facility] Blood Venous blood specimen / Unknown Venipuncture / Unknown 12/26/2024 2:12 PM EDT 12/26/2024 2:13 PM EDT [facility] Final Result Performing Organization Address City/[facility]/ZIP Co de Phone Number [facility] [address] [place] [address] * HLA B27 Typing (12/26/2024 2:12 PM EDT) Blood Venous blood specimen / Unknown Venipuncture / Unknown 12/26/2024 2:12 PM EDT 12/26/2024 2:13 PM EDT may R Italo BODY TRIMMER UPHOLSTERER LAB BLOOD ORDERABLES Final Result Performing Organization Address [facility] Co de Phone Number [facility] [address] [place] [address], * Thyroid Peroxidase Antibody (12/26/2024 2:12 PM EDT) Thyroid Peroxidase Antibody <5 <=8 IU/mL 12/26/2024 5:01 PM EDT [facility] Blood Venous blood specimen / Unknown Venipuncture / Unknown 12/26/2024 2:12 PM EDT 12/26/2024 2:13 PM EDT may Italo BODY TRIMMER UPHOLSTERER LAB BLOOD ORDERABLES Final Result Performing Organization Address City/[facility] Co de Phone Number [facility] [address] [place] [address] * Cyclic Citrul Peptide Antibody IgG (12/26/2024 2:12 PM EDT) Cyclic Citrul Peptide Antibody IgG <5.0 <=5.0 U/mL 12/26/2024 5:03 PM EDT [facility] Blood Venous blood specimen / Unknown Venipuncture / Unknown 12/26/2024 2:12 PM EDT 12/26/2024 2:13 PM EDT May Italo BODY TRIMMER UPHOLSTERER LAB BLOOD ORDERABLES Final Result Performing Organization Address City/[facility]/ZIP Co de Phone Number [facility] [address] [place] [address] * Double-Stranded DNA (dsDNA) Antibody, IgG by IFA (12/26/2024 2:12 PM EDT) Double-Strande d DNA (dsDNA) Ab IgG IFA <1:10 <1:10 12/30/2024 4:40 AM EDT [facility] ([facility]) Blood Venous blood specimen / Unknown Venipuncture / Unknown 12/26/2024 2:12 PM EDT 12/26/2024 2:13 PM EDT Narrative [facility] ([facility]) - 12/30/2024 4:40 AM EDT [...] recommendations for testing may be found at [email or web address]. Performed By: [facility] [address] [place] [address] External Relations Director: Иван Lopez MD, PhD CLIA Number: [id number] May Italo BODY TRIMMER UPHOLSTERER LAB BLOOD ORDERABLES Final Result Performing Organization Address City/[facility]/ZIP Co de Phone Number [facility] ([facility]) [address] [place] [address] * Aldolase (12/26/2024 2:12 PM EDT) Pathologist [facility] ALDOLASE 4.1 1.2 - 7.6 U/L 12/28/2024 3:20 AM EDT [facility] Blood Venous blood specimen / Unknown Venipuncture / Unknown 12/26/2024 2:12 PM EDT 12/26/2024 2:13 PM EDT Narrative [facility] ([facility]) - 12/28/2024 3:20 AM EDT REFERENCE INTERVAL: Aldolase Access complete set of age- and/or gender-specific reference intervals for this test in the [facility] Test Directory ([employer]). Performed By: [facility] [address] [place] [address] External Relations Director: Иван Lopez MD, PhD CLIA Number: [id number] May Italo [facility] LAB BLOOD ORDERABLES Final Result Performing Organization Address [facility] Co de Phone Number [facility] ([facility]) [address] [place] [address] * Cardiolipin antibody, IgA (12/26/2024 2:12 PM EDT) [facility] Cardiolipin Antibody IgA <10 <=11 APL 12/28/2024 2:59 PM EDT [facility] ([facility]) Blood Venous blood specimen / Unknown Venipuncture / Unknown 12/26/2024 2:12 PM EDT 12/26/2024 2:13 PM EDT Narrative [facility] ([facility]) - 12/28/2024 2:59 PM EDT INTERPRETIVE INFORMATION: Cardiolipin Antibodies, IgA <=11 APL: Negative 12-19 APL: Indeterminate 20-80 APL: Low to Moderately Positive 81 APL or above: High Positive Performed By: [facility] [address] [place] [address] External Relations Director: Иван Lopez MD, PhD CLIA Number: [id number] us May R Italo SANTIAGO LAB BLOOD ORDERABLES Final Result [facility] [address] [place] [address] * Lupus Anticoagulant Profile (12/26/2024 2:12 PM EDT) Lupus Anticoagulant Result Lupus anticoagulant (LA) not detected by either LA-sensitive aPTT or dRVVT assays. If clinical suspicion for antiphospholipid syndrome is high, consider testing for antibodies against cardiolipin and ciki-[id number] n I. 12/29/2024 10:14 AM EDT [facility] aPTT Lupus Anticoagulant Sensitive 38.7 <=41.0 sec LAB COAGULATION METHOD 12/29/2024 10:14 AM EDT [facility] DRVVT Screen 39.6 sec LAB COAGULATION METHOD 12/29/2024 10:14 AM EDT [facility] DRVVT Screen Ratio 1.05 <1.20 LAB COAGULATION METHOD 12/29/2024 10:14 AM EDT [facility] Blood Venous blood specimen / Unknown Venipuncture / Unknown 12/26/2024 2:12 PM EDT 12/26/2024 2:13 PM EDT May R Italo SANTIAGO LAB BLOOD ORDERABLES Final Result [facility] [address] [place] [address] * CBC and Differential (12/26/2024 2:12 PM EDT) WBC Count 9.07 3.70 - 10.30 10*3/uL LAB HEMATOLOGY METHOD 12/26/2024 3:41 PM EDT [facility] RBC Count 4.81 3.90 - 5.20 10*6/uL LAB HEMATOLOGY METHOD 12/26/2024 3:41 PM EDT [facility] HGB 14.0 11.2 - 15.7 g/dL LAB HEMATOLOGY METHOD 12/26/2024 3:41 PM EDT [facility] HCT 42.7 34.0 - 45.0 % LAB HEMATOLOGY METHOD 12/26/2024 3:41 PM EDT [facility] Platelet Count 309 155 - 369 10*3/uL LAB HEMATOLOGY METHOD 12/26/2024 3:41 PM EDT [facility] MCV 89 79 - 98 fL LAB HEMATOLOGY METHOD 12/26/2024 3:41 PM EDT [facility] MCH 29.1 26.0 - 32.0 pg LAB HEMATOLOGY METHOD 12/26/2024 3:41 PM EDT [facility] MCHC 32.8 30.7 - 35.5 g/dL LAB HEMATOLOGY METHOD 12/26/2024 3:41 PM EDT [facility] RDW 12.9 11.5 - 14.5 % LAB HEMATOLOGY METHOD 12/26/2024 3:41 PM EDT [facility] MPV 9.7 8.8 - 12.5 fL LAB HEMATOLOGY METHOD 12/26/2024 3:41 PM EDT [facility] nRBC 0.0 <=0.0 per 100 WBCs LAB HEMATOLOGY METHOD 12/26/2024 3:41 PM EDT [facility] Differential Type Automated LAB HEMATOLOGY METHOD 12/26/2024 3:41 PM EDT [facility] Neutrophils % 60 % LAB HEMATOLOGY METHOD 12/26/2024 3:41 PM EDT [facility] Lymphocytes % 33 % LAB HEMATOLOGY METHOD 12/26/2024 3:41 PM EDT [facility] Monocytes % 4 % LAB HEMATOLOGY METHOD 12/26/2024 3:41 PM EDT [facility] Eosinophils % 2 % LAB HEMATOLOGY METHOD 12/26/2024 3:41 PM EDT [facility] Basophils % 1 % LAB HEMATOLOGY METHOD 12/26/2024 3:41 PM EDT [facility] Immature Granulocytes % 0 % LAB HEMATOLOGY METHOD 12/26/2024 3:41 PM EDT [facility] Neutrophils Absolute 5.38 1.60 - 6.10 10*3/uL LAB HEMATOLOGY METHOD 12/26/2024 3:41 PM EDT [facility] Lymphocytes Absolute 2.98 1.20 - 3.90 10*3/uL LAB HEMATOLOGY METHOD 12/26/2024 3:41 PM EDT [facility] Monocytes Absolute 0.40 0.30 - 0.90 10*3/uL LAB HEMATOLOGY METHOD 12/26/2024 3:41 PM EDT [facility] Eosinophils Absolute 0.22 0.00 - 0.50 10*3/uL LAB HEMATOLOGY METHOD 12/26/2024 3:41 PM EDT [facility] Basophils Absolute 0.05 0.00 - 0.10 10*3/uL LAB HEMATOLOGY METHOD 12/26/2024 3:41 PM EDT [facility] Immature Granulocytes Absolute 0.04 0.00 - 0.06 10*3/uL LAB HEMATOLOGY METHOD 12/26/2024 3:41 PM EDT [facility] Blood Venous blood specimen / Unknown Venipuncture / Unknown 12/26/2024 2:12 PM EDT 12/26/2024 2:13 PM EDT Narrative [facility] - 12/26/2024 3:41 PM EDT Therapeutic decision making should be based on absolute values, rather than percentages. May [facility] BODY TRIMMER UPHOLSTERER LAB BLOOD ORDERABLES Final Result Performing Organization Address City/[facility]/ZIP Co de Phone Number [facility] [address] [place] [address] * Rheumatoid Factor, Plasma (12/26/2024 2:12 PM EDT) Rheumatoid Factor, Plasma <10 <14 IU/mL 12/26/2024 4:36 PM EDT [facility] Blood Venous blood specimen / Unknown Venipuncture / Unknown 12/26/2024 2:12 PM EDT 12/26/2024 2:13 PM EDT May R Italo BODY TRIMMER UPHOLSTERER LAB BLOOD ORDERABLES Final Result [facility] [address] [place] [address] * (ABNORMAL) C3 Complement (12/26/2024 2:12 PM EDT) C3 Complement 188(H) 84 - 166 mg/dL 12/26/2024 4:27 PM EDT [facility] Blood Venous blood specimen / Unknown Venipuncture / Unknown 12/26/2024 2:12 PM EDT 12/26/2024 2:13 PM EDT [facility] Final Result [facility] [address] [place] [address] * C4 Complement (12/26/2024 2:12 PM EDT) C4 Complement 35 13 - 36 mg/dL 12/26/2024 4:27 PM EDT [facility] Blood Venous blood specimen / Unknown Venipuncture / Unknown 12/26/2024 2:12 PM EDT 12/26/2024 2:13 PM EDT May [facility] LAB BLOOD ORDERABLES Final Result Performing Organization Address [facility] [place] [address] * Antinuclear Antibody (JAIME), HEp-2, IgG (12/26/2024 2:12 PM EDT) JAIME INTERPRETIVE COMMENT See Note 12/30/2024 12:03 AM EDT [facility] ([employer]) Anti Nuc Ab Screen <1:80 <1:80 12/30/2024 12:03 AM EDT [facility] ([employer]) Blood Venous blood specimen / Unknown Venipuncture / Unknown 12/26/2024 2:12 PM EDT 12/26/2024 2:13 PM EDT Narrative [facility] ([employer]) - 12/30/2024 12:03 AM EDT Clinical Interpretation: [...] not necessarily rule out SARD. Performed By: [facility] [address] [place] [address] External Relations Director: Иван Lopez MD, PhD CLIA Number: [id number] May R [facility] LAB BLOOD ORDERABLES Final Result Performing Organization Address City/[facility] Co de Phone Number [facility] ([facility]) [address] [place] [address] * Thyroid Stimulating Hormone, Plasma (12/26/2024 2:12 PM EDT) Thyroid Stimulating Hormone, Plasma 0.58 0.40 - 4.20 uIU/mL 12/26/2024 4:36 PM EDT [facility] Blood Venous blood specimen / Unknown Venipuncture / Unknown 12/26/2024 2:12 PM EDT 12/26/2024 2:13 PM EDT Narrative [facility] - 12/26/2024 4:36 PM EDT Trimester Specific Ranges TSH ( IU/mL) 1st Trimester 0.1 - 3.0 2nd Trimester 0.19 - 4.06 3rd Trimester 0.3 - 3.7 [facility] LAB BLOOD ORDERABLES Final Result [facility] [address] [place] [place] [address] * Urinalysis Microscopic Examination (12/26/2024 2:06 PM EDT) Urine Urine specimen obtained by clean catch procedure / Unknown Non-blood Collection / Unknown 12/26/2024 2:06 PM EDT 12/26/2024 2:06 PM EDT May R Italo PORTILLON LAB URINE ORDERABLES Final Result Performing Organization Address [facility]/ZIP Co de Phone Number [facility] [address] [place] [address] * Protein, Random, Urine with Creatinine (12/26/2024 2:06 PM EDT) Protein, Urine 7 mg/dL 12/26/2024 3:29 PM EDT [facility] Creatinine, Urine 103 mg/dL 12/26/2024 3:29 PM EDT [facility] Protein/Creatin ine Ratio 0.1 mg/mg Creat 12/26/2024 3:29 PM EDT [facility] Urine Urine specimen obtained by clean catch procedure / Unknown Non-blood Collection / Unknown 12/26/2024 2:06 PM EDT 12/26/2024 2:06 PM EDT May R Italo SANTIAGO LAB URINE ORDERABLES Final Result Performing Organization Address [facility] Co de Phone Number [facility] [address] [place] [address] * (ABNORMAL) Urinalysis with reflex microscopic (Culture NOT Included) (12/26/2024 2:06 PM EDT) Color, Urine Yellow LAB URINALYSIS - AUTOMATED METHOD 12/26/2024 3:51 PM EDT [facility] Clarity, Urine Clear LAB URINALYSIS - AUTOMATED METHOD 12/26/2024 3:51 PM EDT [facility] Spec [place], Urine 1.012 1.005 - 1.030 LAB URINALYSIS - AUTOMATED METHOD 12/26/2024 3:51 PM EDT [facility] pH, Urine 6.0 5.0 - 8.0 LAB URINALYSIS - AUTOMATED METHOD 12/26/2024 3:51 PM EDT [facility] Protein, Urine Negative Negative mg/dL LAB URINALYSIS - AUTOMATED METHOD 12/26/2024 3:51 PM EDT [facility] Glucose, Urine Negative Negative mg/dL LAB URINALYSIS - AUTOMATED METHOD 12/26/2024 3:51 PM EDT [facility] Ketones, Urine Negative Negative mg/dL LAB URINALYSIS - AUTOMATED METHOD 12/26/2024 3:51 PM EDT [facility] Blood, Urine Small(A) Negative LAB URINALYSIS - AUTOMATED METHOD 12/26/2024 3:51 PM EDT [facility] Bilirubin, Urine Negative Negative LAB URINALYSIS - AUTOMATED METHOD 12/26/2024 3:51 PM EDT [facility] Urobilinogen, Urine 0.2 0.2 to 1.0 mg/dL LAB URINALYSIS - AUTOMATED METHOD 12/26/2024 3:51 PM EDT [facility] Leukocytes, Urine Negative Negative LAB URINALYSIS - AUTOMATED METHOD 12/26/2024 3:51 PM EDT [facility] Nitrite, Urine Negative Negative LAB URINALYSIS - AUTOMATED METHOD 12/26/2024 3:51 PM EDT [facility] RBC, Urine 1 0 to 3 /HPF LAB URINALYSIS - AUTOMATED METHOD 12/26/2024 3:51 PM EDT [facility] WBC, Urine 0 - 5 0 to 5 /HPF LAB URINALYSIS - AUTOMATED METHOD 12/26/2024 3:51 PM EDT [facility] Squamous Epithelial Cells 0 - 2 0 to 5 /HPF LAB URINALYSIS - AUTOMATED METHOD 12/26/2024 3:51 PM EDT [facility] Hyaline Casts 0 - 2 0 to 5 /LPF LAB URINALYSIS - AUTOMATED METHOD 12/26/2024 3:51 PM EDT [facility] Bacteria, Urine Negative Negative LAB URINALYSIS - AUTOMATED METHOD 12/26/2024 3:51 PM EDT [facility] Urine Urine specimen obtained by clean catch procedure / Unknown Non-blood Collection / Unknown 12/26/2024 2:06 PM EDT 12/26/2024 2:06 PM EDT may Italo SANTIAGO LAB URINE ORDERABLES Final Result [facility] [address] [place] [address] * Hepatitis C Antibody (12/26/2019 11:18 AM EDT) Hepatitis C Antibody NEGATIVE Reference Range: Negative [facility] 12/26/2019 11:1 8 AM EDT 12/26/2019 12:49 PM EDT Ronal Wetzel MD LAB BLOOD ORDERABLES Final Result [facility] from Last 3 Months or Most Recently Relevant to Health Maintenance Insurance [facility] [employer], [facility] MEDICAID Care Teams Domestic Technician Relationship Specialty Start Date End Date Rafael Campos APRN [address] [place] [address] PCP - General 12/26/24
--- OUTSIDE RECORDS SUMMARY | 2025-03-15 10:42 | XMS_ITS | Clinical Summary ---
Author Organization [facility] Address [address] [facility] [address] [place] [address] Care Team Providers Care Bottom Steep Tender Name Role Phone Jonathan Quispe MD Primary Care Provider [phone] Allergies No known active allergies Medications amoxicillin-clavula [...] patient's age to complete this topic Insurance [facility] Care Teams Bottom Steep Tender Relationship Specialty Start Date End Date Jonathan Quispe MD [address] Attn: LAQUITA Bustamante [phone] PCP - General Family Medicine 06/18/21
--- OUTSIDE RECORDS SUMMARY | 2025-03-15 10:43 | XMS_ITS | Clinical Summary ---
Author Organization [facility] [place] [place] [address] Care Team Providers Care Front Desk Team Member Name Role Phone Unavailable Primary Care Provider [...]
--- OUTSIDE RECORDS SUMMARY | 2025-03-15 10:43 | XMS_ITS | Clinical Summary ---
[facility] Organization [facility] Address [address] [place] [address] Care Team Providers Care Event Mgr Name Role Phone Jr Rafael Campos APRN [...] topic Insurance [employer] MEDICAID [place] Care Teams Event Mgr Relationship Specialty Start Date End Date Jr Rafael Campos APRN [address] [place] [address] PCP - General Nurse Practitioner 04/17/24
[2025-03-15 12:49] LABS: Uric Acid 5.5 mg/dl (2.5-6.2)
[2025-03-16 08:13] LABS: FSH 5.0 mIU/mL (.); LH 9.3 mIU/mL (.); RA Latex Turbid. <10.0 IU/mL (<14.0); Testosterone,Total 15 ng/dL (8-60)
[2025-03-16 13:23] LABS: Antinuclear Antibodies, IFA Negative (.)
[2025-03-16 16:15] LABS: Cortisol,AM 15.0 ug/dL (6.2-19.4)
[2025-03-19 10:22] LABS: Testosterone,Free 1.3 pg/mL (0.0-4.2)
== END 2025-03-15 23:59 | disposition home or self-care (01) ==
LOC: LAB 10:06
PROVIDERS: PCP Nurse Practitioner Family; Visit Provider Internal Medicine
DX: I42.9 Cardiomyopathy, unspecified (principal); R79.89 Other specified abnormal findings of blood chemistry; E05.90 Thyrotoxicosis, unspecified without thyrotoxic crisis or storm; G90.A Postural orthostatic tachycardia syndrome [POTS]; I73.00 Raynaud's syndrome without gangrene; M32.9 Systemic lupus erythematosus, unspecified; D62 Acute posthemorrhagic anemia
CPT/HCPCS: 36415; 82533; 83001; 83002; 83520; 84146; 84402; 84403; 84550; 85651; 86038; 86225; 86235; 86431

== ENCOUNTER 2025-03-19 10:14 | Outpatient (CLI) | payer MEDICAID, SELFPAY ==
--- OUTSIDE RECORDS SUMMARY | 2025-03-19 10:22 | XMS_ITS | Clinical Summary ---
Author Organization [facility] [place] [address] Care Team Providers Care Parquet Floor Layer Name Role Phone Unavailable Primary Care Provider [...]
--- OUTSIDE RECORDS SUMMARY | 2025-03-19 10:22 | XMS_ITS | Clinical Summary ---
[facility] Address [address] [place] [address] Care Team Providers Care Necktie Turner Name Role Phone Jr Rafael Campos APRN [...] topic Insurance [employer] [place]ICAID [place] Care Teams Necktie Turner Relationship Specialty Start Date End Date Jr Rafael Campos APRN [address] [place] [address] PCP - General Nurse Practitioner 04/17/24
--- OUTSIDE RECORDS SUMMARY | 2025-03-19 10:22 | XMS_ITS | Clinical Summary ---
Author Organization [facility] Address [address] [facility] [address] [place] [address] Care Team Providers Care Guest Services Agent Name Role Phone Jonathan Quispe MD Primary Care Provider [phone] Allergies No known active allergies Medications amoxicillin-clavula [...] patient's age to complete this topic Insurance [facility] [place] [address] Care Teams Guest Services Agent Relationship Specialty Start Date End Date Jonathan Quispe MD [address] Attn: LAQUITA Bustamante [phone] PCP - General Family Medicine 06/18/21
--- NOTE | 2025-03-19 10:30 | MR_ITS ---
APPROVED REPORT Auto Appraiser: CLINICAL INDICATION Persistent sinus tachycardia TECHNIQUE Image Acquisition: Cardiac magnetic resonance (CMR) was performed on Siemens Espree MRI 1.5T scanner. Software platform sequences were performed using the Siemens Kleek MR B19 platform. A set of three-plane, low-resolution, large [id number] localizers were initially acquired. Then axial, coronal, sagittal TrueFISP, as well as axial HASTE images, were obtained. These were followed by gated TrueFISP breathold cinematic sequences obtained in the short axis with 8 mm slices and 2 mm gaps, 2-chamber (vertical long axis), 3-chamber, 4-chamber (horizontal long axis). A bolus of contrast was injected intravenously with first-pass sequences obtained in the short axis and four-chamber planes. After approximately 10 minutes, a TI peanut blancher sequence was performed to determine the optimal TI time. Using the optimized TI time, delayed contrast enhancement segmented inversion???recovery TurboFLASH sequences were obtained in the short axis, 2-chamber, 3-chamber, and 4-chamber projections. 2D-velocity phase mapping was performed. Functional parameters were calculated by offline analysis on an independent workstation ([employer], [employer]). Contrast: ProHance??? (Gadoteridol) FINDINGS MORPHOLOGY AND FUNCTION Left ventricle: The left ventricle is normal in size. The indexed left ventricular end-diastolic volume (LVEDVi) is 62 ml/m2 (reference range 57-105 ml/m2 in males, 56-96 ml/m2 in females). Normal left ventricular systolic function is present. There is normal left ventricular wall thickness. There are no regional wall motion abnormalities noted. LVEF is calculated at 69.8% (reference range 57-77%). Right ventricle: The right ventricle is normal in size. The indexed right ventricular end-diastolic volume (RVEDVi) is 59 ml/m2 (reference range 61-121 ml/m2 in males, 48-112 ml/m2 in females). Normal right ventricular systolic function is present. RVEF is calculated at 66.6% (reference range 52-72% in males, 51-71% in females). Atria: The left atrium is normal in size. The maximum indexed left atrial volume is 30 ml/m2 (reference range 26-52 ml/m2 in males, 27-53 ml/m2 in females). The right atrium is normal in size. The maximum indexed right atrial volume is 27 ml/m2 (reference range 18-90 ml/m2). Aorta: The diameter of the aortic annulus is normal, measuring 23 mm (coronal view reference range 21-30 mm in males, 19-27 mm in females). The diameter of the aortic sinus is normal, measuring 32 mm (coronal view reference range 25-42 mm in males, 24-36 mm in females). The diameter of the sinotubular junction is normal, measuring 29 mm (coronal view reference range 18-32 mm in males, 18-28 mm in females). The diameters of the ascending and descending thoracic aorta are normal. Main pulmonary artery: The main pulmonary artery diameter is normal. Pericardium: The pericardial thickness is normal. The pericardial thickness measures 2.0 mm (normal < 4.0 mm). There is no pericardial effusion. VALVES There is prolapse of the posterior mitral valve leaflet. 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 There is no significant valvular stenosis or regurgitation of the mitral, aortic, tricuspid, or pulmonic valve noted visually. Systolic anterior motion of the mitral valve is not visualized. Ratio of pulmonary to systemic flow, Qp:Qs ratio = 0.9 (normal < or = 1.2, hemodynamically significant shunt > 1.5), demonstrating no evidence of hemodynamically significant shunt. TISSUE CHARACTERIZATION Resting Perfusion: Normal myocardial blood flow at rest. No evidence of resting hypoperfusion. Myocardial Fibrosis and/or edema: Normal gadolinium kinetics are present. No evidence of late gadolinium enhancement is noted, consistent with absence of myocardial scarring, infarction, or necrosis. T2-weighted imaging demonstrates no evidence of myocardial edema or inflammation. OTHER No other significant findings are noted. However, this exam is focused on the cardiac structure and function. IMPRESSION Normal LV size with normal LV systolic function. LVEDVi= 62 ml/m2 and LVEF= 69.8%. Normal RV size with normal RV systolic function. RVEDVi= 59 ml/m2 and RVEF= 66.6%. No atrial enlargement. There is prolapse of the posterior mitral valve leaflet (MVP). 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 No CMR evidence of myocardial scarring, infarction, or necrosis. No evidence of myocardial edema or inflammation. Perfusion analysis demonstrates normal blood flow at rest with no evidence of resting hypoperfusion. Ratio of pulmonary to systemic flow, Qp:Qs ratio = 0.9 (normal < or = 1.2, hemodynamically significant shunt > 1.5), demonstrating no evidence of hemodynamically significant shunt. COMPARISON None CRITICAL RESULT None COMMUNICATION The above findings were relayed to the patient at the time of the routine outpatient cardiology follow-up visit, prior to dictation of this report. The findings of this cardiac MR were reviewed, reported, and signed by Pastor Rowe MD (Foam Dispenser). Conclusion Electronically signed by : Angélica Rowe MD 04/11/2025 00:12:09
[2025-03-19] MEDS: 0.9 % SODIUM CHLORIDE 50 ML VIAL 20 ML IV (11:10)
[2025-03-19] MEDS: SODIUM CHLORIDE 0.9% 10ML SYR (RAD ONLY) 10 ML IV (11:10)
[2025-03-19] MEDS: GADOTERIDOL INJ 20ML SYRINGE 16 ML IV (11:11)
== END 2025-03-19 23:59 | disposition home or self-care (01) ==
LOC: RAD 10:14
PROVIDERS: PCP Nurse Practitioner Family; Visit Provider Internal Medicine
DX: I34.1 Nonrheumatic mitral (valve) prolapse (principal); I42.9 Cardiomyopathy, unspecified; R79.89 Other specified abnormal findings of blood chemistry; E05.90 Thyrotoxicosis, unspecified without thyrotoxic crisis or storm; G90.A Postural orthostatic tachycardia syndrome [POTS]; I73.00 Raynaud's syndrome without gangrene; M32.9 Systemic lupus erythematosus, unspecified; D62 Acute posthemorrhagic anemia
CPT/HCPCS: 75561; A9576

== ENCOUNTER 2025-04-16 12:16 | Outpatient (CLI) | payer MEDICAID, SELFPAY ==
--- OUTSIDE RECORDS SUMMARY | 2025-04-16 12:18 | XMS_ITS | Clinical Summary ---
Author Organization [facility] Address [address] [facility] [address] [place] [address] Care Team Providers Care Cattle Care Worker Name Role Phone Jonathan Quispe MD Primary Care Provider [phone] Allergies No known active allergies Medications amoxicillin-clavula [...] Screening 05/24/2024 SDOH Screening 05/24/2024 COVID-19 Vaccine ( 2024-2 6 season) 2025 Influenza Vaccine (#1) 2025 Zoster [...] patient's age to complete this topic Insurance [facility] Care Teams Cattle Care Worker Relationship Specialty Start Date End Date Jonathan Quispe MD [address] Attn: LAQUITA Bustamante [phone] PCP - General Family Medicine 06/18/21
--- OUTSIDE RECORDS SUMMARY | 2025-04-16 12:18 | XMS_ITS | Clinical Summary ---
Author Organization [facility] [place] [address] Care Team Providers Care Physics Professor Name Role Phone Unavailable Primary Care Provider [...]
--- OUTSIDE RECORDS SUMMARY | 2025-04-16 12:18 | XMS_ITS | Clinical Summary ---
Author Organization [facility] Address [address] [place] [address] Care Team Providers Care Easement Worker Name Role Phone Rafael Campos PAPER PRODUCTS INSPECTOR Primary Care Provider Allergies No known active allergies Medications cyclobenzaprine (Flexeril) 5 MG tablet Take 1 tablet by mouth 3 times a day. 11/15/2024 Active verapamil ER (Veralan PM) 240 MG 24 hr capsule Take 1 capsule by mouth daily. 12/14/2024 Active Active Problems No known active problems Family History Medical History Relation Name Comments [...] Description 05/09/2025 2:30 PM EST Office Visit [facility] [address] [place] [address] Italo, May R, PAPER PRODUCTS INSPECTOR [address] [place] [address] Health Maintenance Due Date Last Done Comments [facility]-HIV Screening 1985 [facility]-/Child/Adol SDOH Screenings 1985 [facility]-Varicella Vaccines (1 of 2 - 13+ 2-dose series) 1998 [facility]- SDOH Screenings 11/18/2003 [facility]-Adult SDOH Screenings 11/18/2003 [facility]-DTaP,Tdap,and Td Vaccine s (1 - Tdap) 2004 [facility]-Hepatitis B Vaccines (1 of 3 - 19+ 3-dose series) 2004 HPV Vaccines (1 - 3-dose SCD M series) 2012 [id number] Vaccine (1 - 2024- season) 2025 [facility]-Influenza Vaccine (#1) 2025 [facility]-Depression [...] 8 AM EDT 12/26/2019 12:49 PM EDT us Ronal Wetzel MD LAB BLOOD ORDERABLES Final Res ult SUN[employer] from Last 3 Months or Most Recently Relevant to Health Maintenance Insurance [employer] MEDICAID Care Teams Easement Worker Relationship Specialty Start Date End Date Rafael Campos APRN [address] [place], [place] [id number] PCP - General 12/26/24
--- OUTSIDE RECORDS SUMMARY | 2025-04-16 12:19 | XMS_ITS | Clinical Summary ---
[facility] Address [address] [place] [address] Care Team Providers Care Algorithm Developer Name Role Phone Jr Rafael Campos APRN [...] topic Insurance [employer] MEDICAID [place] Care Teams Algorithm Developer Relationship Specialty Start Date End Date Jr Rafael Campos APRN [address] [place] [address] PCP - General Nurse Practitioner 04/17/24
[2025-04-16 13:25] LABS: Calcium 10.1 mg/dl (8.4-10.2); Iron 87 ug/dL (37-170)
[2025-04-16 13:34] LABS: Total Iron Binding Capacity 306 ug/dL (265-497)
[2025-04-16 13:41] LABS: Triiodothryronine (T3) Uptake 29 % (23.5-40.5)
[2025-04-16 13:42] LABS: Free Thyroxine Index 3.3 ug/dL (5.93-13.13); T4 (Thyroxine) 11.4 ug/dl (5.53-11.0)
[2025-04-16 13:43] LABS: 25-OH Vitamin D, Total 33.0 ng/mL (30-100)
[2025-04-16 13:55] LABS: Thyroid Stimulating Hormone 0.68 uIU/mL (0.465-4.68)
[2025-04-16 14:01] LABS: Ferritin 88.2 ng/ml (6.24-137)
[2025-04-23 11:12] LABS: Dopamine, Plasma < 10.0 pg/mL (0.0-36.7); Epinephrine, Plasma 22.0 pg/mL (0.0-55.4); Norepinephrine, Plasma 521 pg/mL (115-524)
== END 2025-04-16 23:59 | disposition home or self-care (01) ==
LOC: LAB 12:17
PROVIDERS: PCP Nurse Practitioner Family; Visit Provider Internal Medicine
DX: I73.00 Raynaud's syndrome without gangrene (principal); R42 Dizziness and giddiness; Z90.710 Acquired absence of both cervix and uterus; G90.A Postural orthostatic tachycardia syndrome [POTS]; I42.9 Cardiomyopathy, unspecified; E05.90 Thyrotoxicosis, unspecified without thyrotoxic crisis or storm
CPT/HCPCS: 36415; 82306; 82310; 82384; 82397; 82728; 83540; 83550; 83835; 83970; 84436; 84443; 84479

== ENCOUNTER 2025-04-18 12:39 | Outpatient (CLI) | payer MEDICAID, SELFPAY ==
--- OUTSIDE RECORDS SUMMARY | 2025-04-18 12:44 | XMS_ITS | Clinical Summary ---
Author Organization [facility] [place] [address] Care Team Providers Care Metalsmith Apprentice Name Role Phone Unavailable Primary Care Provider [...]
--- OUTSIDE RECORDS SUMMARY | 2025-04-18 12:44 | XMS_ITS | Clinical Summary ---
Author Organization [facility] Address [address] [place] [address] Care Team Providers Care Investor Relations Director Name Role Phone Rafael Campos SPRING WINDER Primary Care Provider [phone] Allergies No known active allergies Medications cyclobenzaprine [...] Description 05/09/2025 2:30 PM EST Office Visit [facility] [address] [place] [address] Italo, May R, SPRING WINDER [address] [place] [address] Health Maintenance Due Date Last Done Comments [facility]-HIV Screening 1985 [facility]-/Child/Adol SDOH Screenings 1985 [facility]-Varicella Vaccines (1 of 2 - 13+ 2-dose series) 1998 [facility]- SDOH Screenings 11/18/2003 [facility]-Adult SDOH Screenings 11/18/2003 [facility]-DTaP,Tdap,and Td Vaccine s (1 - Tdap) 2004 [facility]-Hepatitis B Vaccines (1 of 3 - 19+ 3-dose series) 2004 HPV Vaccines (1 - 3-dose SCD M series) 2012 [id number] Vaccine (1 - 2024- season) 2025 [facility]-Influenza [...] Most Recently Relevant to Health Maintenance Insurance [employer] MEDICAID Care Teams Investor Relations Director Relationship Specialty Start Date End Date Rafael Campos APRN [address] [place], [place] [phone] PCP - General 12/26/24
--- OUTSIDE RECORDS SUMMARY | 2025-04-18 12:44 | XMS_ITS | Clinical Summary ---
[facility] Address [address] [place] [address] Care Team Providers Care Squirt Machine Operator Name Role Phone Jr Rafael Campos APRN [...] topic Insurance [employer] MEDICAID [place] Care Teams Squirt Machine Operator Relationship Specialty Start Date End Date Jr Rafael Campos APRN [address] [place] [address] PCP - General Nurse Practitioner 04/17/24
--- OUTSIDE RECORDS SUMMARY | 2025-04-18 12:44 | XMS_ITS | Data Portability ---
Author Organization LAQUITA ROC Santiago [facility] Address [address] [facility] [address] [address] [address] [place] [address] Assessment Encounter Date Assessment Date Assessment LastModified by Organization Details LastModified Time 04/29/2021 04/29/2021 check gi pcr and calprotecin mashmun Not available 04/29/2021 16:22:33 Plan of Treatment Reminders Order Date Submit Date Provider Last Modified By Organization Details Last Modified Time Details Appointments None recorded. Lab vitamin D, 25-hydrox y, total, serum 2023 [facility], [address] [place] [address], [id number], 4 17:09:17 ccp (cyclic citrullin ated peptide) iga+igg, serum 2023 024 [facility], [address] [place] [address], [id number], 4 15:20:10 rf (rheumato id factor), serum 2023 024 [facility], [address] [place] [address], [address], 4 17:44:24 C reactive protein, QN, serum or plasma 2023 024 [facility], [address] [place] [address], [id number], 4 17:44:22 uric acid, serum or plasma 2023 024 [facility], [address] [place] [address], [id number], 4 17:44:21 ESR (erythroc yte sedimenta tion rate), blood 2023 024 [facility], [address] [place] [address], [id number], 4 19:11:43 JAIME (antinucl ear antibodie s) panel, serum 2023 024 [facility], [address] [place] [address], [id number], 4 08:04:08 thyroid panel, serum 2023 024 [facility], [address] [place] [address], [id number], 4 18:31:21 T4, free, serum 2023 024 [facility], [address] [place] [address], [id number], 4 16:58:31 TSH, serum or plasma 2023 024 [facility], [address] [place] [address], [id number], 4 16:58:35 T3, free, serum or plasma 2023 024 [facility], [address] [place] [address], [id number], 4 16:58:33 immunoglo bulins iga+igg+i gm, quantitat michael, serum 2023 024 [facility], [address] [place] [address], [id number], 4 17:44:19 hepatitis (A+B+C) panel, serum 2023 [facility], [address] [facility], [place], [address], 4 17:00:[address] referral - with headaches , muscle pain, muscle spasm, signs of POTs with normal cardiac work up; loses balance; family history of MS 2023 024 DORINA Betancur MD, [address], [facility] [address], [place], [address], 4 10:15:32 Procedures None recorded. Surgeries None recorded. Imaging None recorded. Medication Orders prednison e 5 mg tablet 2023 024 [facility] #[id number], [address], [id number], 4 09:36:56 cholestyr amine (with sugar) 4 gram oral powder [address] [facility] #[id number], [address], [id number], 4 14:20:35 Florastor 250 mg capsule [address] [facility] #67139, [address], [id number], 4 14:20:45 Dificid 200 mg tablet 2020 021 [facility]33[facility], [address], [id number], 1 15:53:42 Patient TargetsNo targets recorded. Patient [...] NG/dL 0.93-1 .70 normal Not Available [facility] [address] [place] [address], [address], 11/01/2023 16:58:31 11/01/19 24 11/01/2023 T3 FREE T3 free 3.46 pg/mL 2.00-4 .40 normal Not Available [facility] [address] [place] [address], [address], 11/01/2023 16:58:33 11/01/19 24 11/01/2023 TSH TSH 0.687 u[IU] /mL 0.270- 4.200 normal Not Available [facility] [address] [place] [address], [address], 11/01/2023 16:58:35 11/01/19 24 11/01/2023 HEPAT ITIS PANEL hepatitis A Ab, IgM NONREA CTIVE nonrea ctive normal Not Available [facility] [address] [place] [address], [address], 11/01/2023 17:00:21 11/01/19 24 11/01/2023 HEPAT ITIS PANEL hepatitis B surface Ag NONREA CTIVE nonrea ctive normal Not Available [facility] [address] [place] [address], [id number], 11/01/2023 17:00:21 11/01/19 24 11/01/2023 HEPAT ITIS PANEL hepatitis B core Ab,IgM NONREA CTIVE nonrea ctive normal Not Available [facility] [address] [place] [address], [address], 11/01/2023 17:00:21 11/01/19 24 11/01/2023 HEPAT ITIS PANEL hcab, reflex viral RNA qt NONREA CTIVE nonrea ctive normal Antib odies to HCV were not detec josé; does not exclu de the possi bilit y of expos ure to HCV. Not Available [facility] [address] [place] [address], [address], 11/01/2023 17:00:21 11/01/19 24 11/01/2023 VITAM IN D 25-OH vitamin D 25-oh, total 31 NG/mL >=30 NG/mL normal Not Available [facility] [address] [place] [address], [address], 11/01/2023 17:09:17 11/01/19 24 11/01/2023 QUANT . IMMUN OGLOB ULINS IgG 1164 mg/dL 700-16 00 normal Not Available [facility] [address] [place] [address], [address], 11/01/2023 17:44:19 11/01/19 24 11/01/2023 QUANT . IMMUN OGLOB ULINS IgA 189 mg/dL 70-400 normal Not Available [facility] [address] [place] [address], [address], 11/01/2023 17:44:19 11/01/19 24 11/01/2023 QUANT . IMMUN OGLOB ULINS IgM 243 mg/dL 40-230 high Not Available [facility] [address] [place] [address], [id number], 11/01/2023 17:44:19 11/01/19 24 11/01/2023 URIC ACID [...] mstan jaziel. Arthr itis [facility] Vol 64 No 10, 2011 Nury henry Colle ge of Rheum atolo gy ----- ----- ----- ----- ----- ----- ----- ----- ----- ----- ----- ---- Not Available [facility] [address] [place] [address], [address], 11/01/2023 17:44:21 11/01/19 24 11/01/2023 C REACT MICHAEL PROTE IN C reactive protein 0.66 mg/dL 0.00-0 .49 high Not Available [facility] [address] [place] [address], [address], 11/01/2023 17:44:22 11/01/19 24 11/01/2023 RF SCREE N, QUANT . rf screen, quant. <10.0 [IU]/ mL 0.0-13 .9 normal Not Available [facility] [address] [place] [address], [address], 11/01/2023 17:44:24 11/01/19 24 11/01/2023 ESR, AUTOM ATED ESR, automated 19 mm 0-19 normal Not Available [facility] [address] [place] [address], [address], 11/01/2023 19:11:43 11/01/19 24 11/02/2023 THYRO ID ANTIB ODIES PANEL thyroid peroxidase Ab <1 IU/mL <9 normal Not Available [facility] [address] [place] [address], [address], 11/02/2023 18:31:21 11/01/19 24 11/02/2023 THYRO ID ANTIB ODIES PANEL thyroglobuli n Ab <1 IU/mL < or = 1 normal Not Available [facility] [address] [place], [address], 11/02/2023 18:31:21 11/01/19 24 11/04/2023 JAIME REFLE X COMME NT JAIME reflex comment see below normal REFLE X TESTI NG IN PROGR ESS INCLU KAY: Anti- DNA (ds) Ab, SM/RN P Abs, SS-A/ SS-B Abs, and Scler oderm a Ab Testi ng could take up to 7 days to compl ete. Not Available [facility] [address] [place], [address], 11/04/2023 08:03:58 11/01/19 24 11/04/2023 JAIME W/ [...] infor katerine mesa e refer to http: //[facility] tiffany beckman.Que stDia gnost ics.c om/fa q/FAQ 177 (This link is being provi ded for infor rosario ramirez/ educa fartun l purpo ses only. ) Not Available [facility] [address] [place], [address], 11/04/2023 08:04:08 11/01/19 24 11/04/2023 JAIME W/ REFLE X JAIME titer 1:40 titer high A low level JAIME titer may be prese nt in pre-c linic al autoi mmune disea ses and twan l indiv idual s. Refer ence Range <1:40 Negat michael 1:40- 1:80 Low Antib jason Level >1:80 [place] josé Antib jason Level Not Available [facility] [address] [place] [address], [address], 11/04/2023 08:04:08 11/01/19 24 11/04/2023 JAIME W/ [...] Patte rns (http s://d oi.or g/10. 1515/ [facility]- 2017- 0052) Not Available [facility] [address] [place] [address], [address], 11/04/2023 08:04:08 11/01/19 24 11/04/2023 JAIME REFLE X TESTI NG sm antibody <1.0 NEG ai <1.0 neg normal Not Available [facility] [address] [place] [address], [address], 11/04/2023 13:53:54 11/01/19 24 11/04/2023 JAIME REFLE X TESTI NG sm/trampoline team coach Ab <1.0 NEG ai <1.0 neg normal Not Available [facility] [address] [place] [address], [address], 11/04/2023 13:53:54 11/01/19 24 11/04/2023 JAIME REFLE X TESTI NG ss-A Ab <1.0 NEG ai <1.0 neg normal Not Available [facility] [address] [place] [address], [address], 11/04/2023 13:53:54 11/01/19 24 11/04/2023 JAIME REFLE X TESTI NG ss-B Ab <1.0 NEG ai <1.0 neg normal Not Available [facility] [address] [place] [address], [address], 11/04/2023 13:53:54 11/01/19 24 11/04/2023 JAIME REFLE X TESTI NG scleroderma Ab <1.0 NEG ai <1.0 neg normal Not Available [facility] [address] [place] [address], [address], 11/04/2023 13:53:54 11/01/19 24 11/04/2023 ANTI- CCP anti-ccp <16 units normal Refer ence Range Negat michael: <20 Weak Posit michael: 20-39 Moder ate Posit michael: 40-59 Stron g Posit michael: >59 Not Available [facility] [address] [place] [address], [address], 11/04/2023 15:20:10 11/01/19 24 11/04/2023 JAIME REFLE X TESTI NG sm antibody <1.0 NEG ai <1.0 neg normal Not Available [facility] [address] [place] [address], [address], 11/12/2023 17:03:51 11/01/19 24 11/04/2023 JAIME REFLE X TESTI NG sm/trampoline team coach Ab <1.0 NEG ai <1.0 neg normal Not Available [facility] [address] [place] [address], [address], 11/12/2023 17:03:51 11/01/19 24 11/04/2023 JAIME REFLE X TESTI NG ss-A Ab <1.0 NEG ai <1.0 neg normal Not Available [facility] [address] [place] [address], [address], 11/12/2023 17:03:51 11/01/19 24 11/04/2023 JAIME REFLE X TESTI NG ss-B Ab <1.0 NEG ai <1.0 neg normal Not Available [facility] [address] [place], [address], 11/12/2023 17:03:51 11/01/19 24 11/04/2023 JAIME REFLE X TESTI NG scleroderma Ab <1.0 NEG ai <1.0 neg normal Not Available [facility] [address] [place], [address], 11/12/2023 17:03:51 11/01/19 24 11/12/2023 JAIME REFLE X TESTI NG DNA (ds) Ab NEGATI VE negati ve normal Not Available [facility] [address] [place], [address], 11/12/2023 17:03:51 Result Notes None recorded. Procedures Surgical History Date Name Laterality Status Provider Name and Address Organization Details Recorded Time 05/24/19 20 hysterectomy completed Shelbei Almeida [facility] 04/02/2021 14:38:43 02/02/20 08 section completed [facility] 11/01/2023 14:23:15 fecal microbiota transplantation completed [facility] 11/01/2023 14:22:57 Imaging Results None recorded. Procedure [...] Recorded Body weight Heart rate Oxygen saturation Systolic And Diastolic Provider Name and Address Organization Details Last Updated DateTime 11/01/2023 39802.15 g 92 /min 95 % 120/88 mm[Hg] [facility] 14:25:12 Date Recorded Body weight Heart rate Oxygen saturation Systolic And Diastolic Provider Name and Address Organization Details Last Updated DateTime 12/02/2023 14261.56 g 110 /min 99 % 110/70 mm[Hg] [facility] 12/02/2023 09:18:26 Date Recorded Body height Body mass index (BMI) Body weight Heart rate Systolic And Diastolic Provider Name and Address Organization Details Last Updated DateTime 04/02/2021 167.64 cm 26 kg/m2 25200.37 g 122 /min 117/79 mm[Hg] Shelbie Almeida [facility] 04/02/2021 14:36:50 Social History Question Answer Notes LastModified by [employer] Details LastModified Time Tobacco Smoking Status Former Smoker quit smoking November 2022 Marcyregino Marx [facility] 11/01/2023 14:22:02 What Was The Date Of [...] Reflux (GERD) Y Cancer Y Headaches Y GI Problems Y Depression Y Gynecological HistoryNo gynecological history recorded. Obstetrics History GPAL:G 0 P 0 0 0 0 Past Encounters Encounter ID Performer Location Encounter Start Date Encounter Closed Date Diagnosis/Indication Diagnosis SNOMED-CT Code Diagnosis ICD10 Code Diagnosis IMO Codes Diagnosis Note [id number] JILLIAN CARMICHAEL MD [facility] [address] [place] [address], [place] [address] 04/02/2021 14:26:54 05/06/2021 13:45:15 Diarrhea 93280160 R19.7 Clostridio ides difficile infection 901804177 A04.72 Follow-up in 1 month to be sure she is improving. [id number] JILLIAN CARMICHAEL MD [facility] [address] [place] [address], [place] [address] 04/29/2021 09:10:35 04/30/2021 10:25:43 Diarrhea 67179507 R19.7 Clostridio ides difficile infection 657450890 A04.72 [id number] JILLIAN CARMICHAEL MD [facility] [address] [place] [address], [place] [address] 06/10/2021 11:45:18 06/11/2021 08:01:48 Diarrhea 21353207 R19.7 maybe post infectious ibs vs ongoing infectioni d consult -- not able to be seen in [place] due to insurance issues Clostridio ides difficile infection 198803458 A04.72 recurrentj ust finished round 2 of dificidsom e improvemen tmore postprandi al diarrhea now [id number] NANCY MOHAMUD APRN [facility] [address] [place], [place] [address] 11/01/2023 13:46:56 11/02/2023 05:13:49 Fatigue 30127914 R53.83 worsening overallwil l assess thyroid antibodies Vitamin D deficiency 347 [address]151 E55.9 low of 16.9 Pain of mu ltiple joints 20108470 M25.50 without synovitis, no dactylitis , no joint effusionsn o skin changes or rashesnorm al skin turgorno swelling, redness, tenderness alonewill assess an arthritis panel Pruritic rash 08850059 L 28.2 recurring rashes [id number] NANCY MOHAMUD APRN [facility] [address] [place] [address] 12/02/2023 09:03:15 12/03/2023 04:47:12 Fatigue 98748765 R53.83 worsening overallneg ative thyroid antibodies Vitamin D deficiency 347 22093 E55.9 low of 16.9 Pruritic rash 61964169 L 28.2 recurring rashesnega tive work up Unable to balance 301313 006 R26.89 Health Concerns Section Related Observation LastModified by Organization Detai ls LastModified Time None Recorded Concern Status LastModified by Organization Details LastModified Time None Recorded Advance Directives Directive None Recorded Payers Insurance Date Sequence Insurance Name Policy Number Policy White Covered Member ID White Member ID Guarantor Name 12/03/2023 1 [facility] (MEDICAID REPLACEMENT - HMO) [id number] Alise Emil [id number] Alise Stein Notes Date Note Type Note [...] day. No abdominal pain. JILLIAN CARMICHAEL MD [address] [place] [address], [address], [facility] 05/06/2021 10:51:40 04/29/2021 text/html Visit today is being conducted via telehealth using both audio/video. The patient confirms that he/she is physically located in [place] at the time of this visit. Patient [...] diarrheanot eating>10x a day JILLIAN CARMICHAEL MD [address] [place] [address], [address], [facility] 04/29/2021 16:23:36 06/10/2021 text/html Visit today is being conducted via telehealth using both audio/video. The patient confirms that he/she is physically located in [place] at the time of this visit. Patient [...] -- huy post prandial JILLIAN CARMICHAEL MD [address] [place] [address], [phone], [facility] 06/10/2021 15:49:43 11/01/2023 text/html ROS as noted [...] are negative; family history of MS NANCY MOHAMUD APRN [address] [place], [address], [facility] 11/30/2023 12:29:10 12/02/2023 text/html ROS as noted [...] JAIME here with 1:40 mitotic spindle NANCY MOHAMUD APRN [address] [place], [address], [facility] 12/02/2023 09:49:12 OBGyn Episode No OBEpisode recorded.
--- OUTSIDE RECORDS SUMMARY | 2025-04-18 12:44 | XMS_ITS | Clinical Summary ---
Author Organization [facility] Address [address] [place] [address] Care Team Providers Care Paint Pourer Name Role Phone Jonathan Quispe MD Primary Care Provider [phone] Allergies No known active allergies Medications amoxicillin-clavula [...] patient's age to complete this topic Insurance [facility] Care Teams Paint Pourer Relationship Specialty Start Date End Date Jonathan Quispe MD [address] Attn: LAQUITA Bustamante [phone] PCP - General Family Medicine 06/18/21
== END 2025-04-18 23:59 | disposition home or self-care (01) ==
LOC: LAB 12:41
PROVIDERS: PCP Nurse Practitioner Family; Visit Provider Internal Medicine
DX: I73.00 Raynaud's syndrome without gangrene (principal); G90.A Postural orthostatic tachycardia syndrome [POTS]; I42.8 Other cardiomyopathies; E05.90 Thyrotoxicosis, unspecified without thyrotoxic crisis or storm; Z90.710 Acquired absence of both cervix and uterus
CPT/HCPCS: 82384; 83835; 84585

== ENCOUNTER 2025-04-24 14:26 | Outpatient (CLI) | payer MEDICAID, SELFPAY ==
--- OUTSIDE RECORDS SUMMARY | 2025-04-25 09:46 | XMS_ITS | Clinical Summary ---
[facility] Address [address] [place] [address] Care Team Providers Care Instructional Leader Name Role Phone Jr Rafael Campos APRN [...] topic Insurance [employer] [place]ICAID [place] Care Teams Instructional Leader Relationship Specialty Start Date End Date Jr Rafael Campos APRN [address] [place] [address] PCP - General Nurse Practitioner 04/17/24
--- OUTSIDE RECORDS SUMMARY | 2025-04-25 09:46 | XMS_ITS | Clinical Summary ---
Author Organization [facility] Address [address] [facility] [address] [place] [address] Care Team Providers Care Shank Boner Name Role Phone Jonathan Quispe MD Primary Care Provider [phone] Allergies No known active allergies Medications amoxicillin-clavula [...] patient's age to complete this topic Insurance [facility] Care Teams Shank Boner Relationship Specialty Start Date End Date Jonathan Quispe MD [address] Attn: LAQUITA Bustamante [phone] PCP - General Family Medicine 06/18/21
--- OUTSIDE RECORDS SUMMARY | 2025-04-25 09:46 | XMS_ITS | Clinical Summary ---
Author Organization [facility] Address [address] [place] [address] Care Team Providers Care Tape Edge Machine Operator Name Role Phone Rafael Campos CORRESPONDENCE SECTION SUPERVISOR Primary Care Provider Allergies No known active [...] Description 05/09/2025 2:30 PM EST [facility] Visit [facility] [address] [place] [address] Italo, May R, CORRESPONDENCE SECTION SUPERVISOR [address] [place] [address] Health Maintenance Due Date Last Done Comments [facility]-HIV Screening 1985 [facility]-/Child/Adol SDOH Screenings 1985 [facility]-Varicella Vaccines (1 of 2 - 13+ 2-dose series) 1998 [facility]- SDOH Screenings 11/18/2003 [facility]-Adult SDOH Screenings 11/18/2003 [facility]-DTaP,Tdap,and Td Vaccine s (1 - Tdap) 2004 [facility]-Hepatitis B Vaccines (1 of 3 - 19+ 3-dose series) 2004 HPV Vaccines (1 - 3-dose SCD M series) 2012 [id number] Vaccine (1 - 2024- season) 2025 [facility]-Influenza [...] Most Recently Relevant to Health Maintenance Insurance [employer] MEDICAID Care Teams Tape Edge Machine Operator Relationship Specialty Start Date End Date Rafael Campos APRN [address] [place], [place] [phone] PCP - General 12/26/24
--- OUTSIDE RECORDS SUMMARY | 2025-04-25 09:46 | XMS_ITS | Clinical Summary ---
Author Organization [facility] [place] [place] [address] Care Team Providers Care Forestry Biology Specialist Name Role Phone Unavailable Primary Care Provider [...]
== END 2025-04-24 23:59 | disposition home or self-care (01) ==
LOC: LAB.DROPOF 04-25 09:43
PROVIDERS: PCP Nurse Practitioner Family; Visit Provider Nurse Practitioner Family
DX: E05.90 Thyrotoxicosis, unspecified without thyrotoxic crisis or storm (principal)
CPT/HCPCS: 86376